=== PATIENT | male | born 2000 | race Two or more races ===

== ENCOUNTER 2025-02-02 23:58 | Inpatient (IN) | payer BC ==
[2025-02-03 03:39] LABS: Basophils # (A) 0.09 10*3/uL (0.00-0.10); Eosinophils # (A) 0.02 10*3/uL (0.04-0.35); Eosinophils % (A) 0.2 %; HCT 37.7 % (39.6-50.0); HGB 12.6 g/dL (13.0-17.0); Lymphocytes # (A) 1.68 10*3/uL (0.90-5.00); Lymphocytes % (A) 17.8 %; MCHC 33.4 g/dL (32.0-37.0); MCV 80.9 fL (80.0-97.0); Mean Platelet Volume 10.5 fL (9.5-12.2); Monocytes # (A) 1.94 10*3/uL (0.20-1.00); Monocytes % (A) 20.6 %; Neutrophils # (A) 5.68 10*3/uL (1.80-7.70); Neutrophils % (A) 60.1 %; Platelet Count 428 10*3/uL (140-440); RBC 4.66 10*6/uL (4.40-5.60); RDW 12.7 % (11.5-14.5); WBC 9.44 10*3/uL (4.50-10.00)
--- NOTE | 2025-02-03 03:45 | ED ---
General Adult HPI - General Chief complaint: GI Bleed Stated complaint: NVD,Fever Time Seen by Provider: 02/03/25 02:36 Source: patient Mode of arrival: ambulatory Limitations: no limitations - History of Present Illness Initial comments: Patient is a 24-year-old male presenting today for diarrhea. Patient states symptoms have been going on for "a few months". Initially started with loose stools and crampy lower abdominal pain. Initially they seem to come and go from week to week however have become more constant. Over the last few weeks symptoms have become more constant and he has developed grossly bloody stools as well. States he has been using "the max amount of Imodium" without improvement of symptoms. Has about 10 loose stools a day. Is gotten to the point where he will not be able to control his bowels and will have accidents while at work. Patient does work packaging meat. Last night he had a fever of 101 degrees at home so called his mother who brought him to the ER. Just prior to checking his temperature he did take 3 tablets of 200 mg ibuprofen. Patient does have a significant family history of an aunt with ulcerative colitis, multiple family members with IBS. Patient himself has no medical history. No prior surgeries on his abdomen. Denies testicular pain or swelling. Denies dysuria or hematuria. Denies vomiting or nausea. No chest pain or shortness of breath. States he was seen at another hospital on Saturday and was told to start a bland diet. Patient states he has been eating only toast for the last 3 days and symptoms have only gotten worse. Denies any exacerbating or alleviating factors. No recent travel. - Related Data Home Medications Medication Instructions Recorded Confirmed Loperamide [Imodium] 4 mg PO QID PRN 02/03/25 02/03/25 Allergies Allergy/AdvReac Type Severity Reaction Status Date / Time No Known Allergies Allergy Verified 02/03/25 09:07 Review of Systems ROS Statement: Those systems with pertinent positive or pertinent negative responses have been documented in the HPI. ROS Other: All systems not noted in ROS Statement are negative. Past Medical History Past Medical History: No Reported History History of Any Multi-Drug Resistant Organisms: None Reported Past Surgical History: No Surgical Hx Reported Past Psychological History: Anxiety, Bipolar, Depression Smoking Status: Never smoker Past Alcohol Use History: None Reported Past Drug Use History: None Reported General Exam - General Exam Comments Initial Comments: PE: CONSTITUTIONAL: No apparent distress, well appearing, nontoxic SKIN: Warm, dry, no jaundice, hives or petechiae, generalized pallor EYES: Pupils are equally round, extraocular movements intact without nystagmus, pale conjunctiva, non-icteric sclera HENT: Normocephalic, atraumatic, moist mucus membranes, oropharynx clear without exudates NECK: , Full range of motion, normal appearance PULMONARY: Clear to auscultation without wheezes, rhonchi, or rales, normal excursion, no accessory muscle use and no stridor CARDIOVASCULAR: Regular rate, rhythm, normal S1 and S2. No appreciated murmurs, rubs or gallops. Strong radial pulses with intact distal perfusion. No lower extremity edema GASTROINTESTINAL: Soft, active bowel sounds throughout, mild suprapubic tenderness to palpation, otherwise, non-distended, no palpable masses, no rebound or guarding. No hepatosplenomegaly GENITOURINARY: Rectal exam was performed with RNCelia at bedside, was limited by patient's body habitus though no visible hemorrhoids, on digital rectal exam patient did have significant pain, there was light red blood upon glove on exam. MUSCULOSKELETAL: Extremities have no gross deformity, no edema, redness, or swelling NEUROLOGIC:_a/o x 3, GCS 15, normal mentation and speech. Moves all extremities x 4 without motor or sensory deficit PSYCHIATRIC:_normal mood and affect, thought process is clear and linear Limitations: no limitations Course Vital Signs 02/03/25 02/03/25 02/03/25 00:05 05:01 06:04 Temperature 99.0 F 98.6 F Pulse Rate 126 H 91 Respiratory 18 17 Rate Blood Pressure 138/86 134/82 O2 Sat by Pulse 100 99 Oximetry 02/03/25 02/03/25 02/03/25 09:13 10:53 13:21 Temperature 98.4 F Pulse Rate 98 94 Respiratory 17 16 16 Rate Blood Pressure 114/60 121/69 O2 Sat by Pulse 95 99 Oximetry 02/03/25 20:00 Temperature 99.0 F Pulse Rate 100 Respiratory 16 Rate Blood Pressure 127/62 O2 Sat by Pulse 97 Oximetry Medical Decision Making - Medical Decision Making Was pt. sent in by a medical professional or institution (, PA, SALVAGER HELPER, urgent care, hospital, or group home...) When possible be specific @ -No Did you speak to anyone other than the patient for history (EMS, parent, family, police, friend...)? What history was obtained from this source @ -Spoke with patient's mother who states that her sister has a history of ulcerative colitis, she has a history of IBS, patient has an appoint with his PCP on February [address] Lopez in February 17 Did you review nursing and triage notes (agree or disagree)? Why? @ -I reviewed and agree with nursing and triage notes Were old charts reviewed (outside hosp., previous admission, EMS record, old EKG, old radiological studies, urgent care reports/EKG's, group home records)? Report findings @ -Medical records reviewed no prior medical records for review Differential Diagnosis (chest pain, altered mental status, abdominal pain women, abdominal pain men, vaginal bleeding, weakness, fever, dyspnea, syncope, headache, dizziness, GI bleed, back pain, seizure, CVA, palpatations, mental health, musculoskeletal)? @Differential GI Bleed: Esophageal varices, aortoenteric fistula, Cele-Levy, gastritis, peptic ulcer disease, diverticulosis, inflammatory bowel disease, hemorrhoids, fissure, colitis, malignancy, Meckel's diverticulum, this is not meant to be an all- inclusive list. EKG interpreted by me (3pts min.). @ -As above X-rays interpreted by me (1pt min.). @ -None done CT interpreted by me (1pt min.). @ -Personally reviewed CT scan, appears to show colonic wall thickening, I see no evidence of perforation or obstruction agree with radiologist interpretation U/S interpreted by me (1pt. min.). @ -None done What testing was considered but not performed or refused? (CT, X-rays, U/S, labs)? Why? @ -None What meds were considered but not given or refused? Why? @Morphine was considered for pain control per patient politely declined Did you discuss the management of the patient with other professionals (professionals i.e. , PA, SALVAGER HELPER, lab, RT, psych nurse, health social work professor, underwriting service representative, teacher, first officer and flight instructor, window caser)? Give summary @ -No Was smoking cessation discussed for >3mins.? @ -No Was critical care preformed (if so, how long)? @ -No Were there social determinants of health that impacted care today? How? (Homelessness, low income, unemployed, alcoholism, drug addiction, transportation, low edu. Level, literacy, decrease access to med. care, alf, rehab)? @ -No Was there de-escalation of care discussed even if they declined (Discuss DNR or withdrawal of care, Hospice)? @ -No What co-morbidities impacted this encounter? (DM, HTN, Smoking, COPD, CAD, Cancer, CVA, ARF, Chemo, Hep., AIDS, mental health diagnosis, sleep apnea, morbid obesity)? @ -None Was patient admitted / discharged? Hospital course, mention meds given and route, prescriptions, significant lab abnormalities, going to OR and other pertinent info. @ Admission- this is a pleasant 24 gentleman presenting today for bloody diarrhea and fever. Temp on arrival 99 degrees, of note patient did take Motrin prior to coming in. He was tachycardic with heart rate 126. Blood pressure 138/86. On assessment patient is somewhat pale appearing with pale conjunctiva. Abdomen shows mild tenderness to the suprapubic region. Rectal exam did not show any visible hemorrhoids though was limited by body habitus. Light pink blood was noted on FRANCISCO. Discussed with the patient obtaining labs, administe ring IV fluids, will obtain CT of the pelvis. Due to fever, chronicity of symptoms and bloody stools anticipate admission Labs show mild anemia for patient's age, hemoglobin of 12.6 no prior for com parison, no significant leukocytosis, electrolytes overall unremarkable CRP 15.6.. CT abdomen pelvis appeared to show findings "consistent with long segment diffuse colitis, differential includes infectious inflammatory and ischemic etiologies, in patients of this age for ulcerative colitis needs to be strongly considered advised GI follow-up. Given the extent of patient's symptoms, findings on CT, possibility of new onset ulcerative colitis plan to admit for observation and GI consult". Updated pt and mother to findings and plan, they are agreeable with POC. Case was discussed Dr. Simms who kindly excepted patient for admission. Undiagnosed new problem with uncertain prognosis? @ -No Drug Therapy requiring intensive monitoring for toxicity (Heparin, Nitro, Insulin, Cardizem)? @ -No Were any procedures done? @ -No Diagnosis/symptom? @Colitis Acute, or Chronic, or Acute on Chronic? @Acute Uncomplicated (without systemic symptoms) or Complicated (systemic symptoms)? @Complicated Side effects of treatment? @ -No Exacerbation, Progression, or Severe Exacerbation? @ -No Poses a threat to life or bodily function? How? (Chest pain, USA, SD, pneumonia, PE, COPD, DKA, ARF, appy, cholecystitis, CVA, Diverticulitis, Homicidal, Suicidal, threat to staff... and all critical care pts) @ Possibly if left untreated could progress to toxic megacolon - Lab Data Result diagrams: 02/03/25 03:27 02/03/25 03:27 Lab Results 02/03/25 02/03/25 02/03/25 Range/Units 03:22 03:27 03:27 WBC 9.44 (4.50-10.00) 10*3/uL RBC 4.66 (4.40-5.60) 10*6/uL Hgb 12.6 L (13.0-17.0) g/dL Hct 37.7 L (39.6-50.0) % MCV 80.9 (80.0-97.0) fL MCH 27.0 (27.0-32.0) pg MCHC 33.4 (32.0-37.0) g/dL Plt Count 428 (140-440) 10*3/uL MPV 10.5 (9.5-12.2) fL Immature Gran % (Auto) 0.3 % Neutrophils % 60.1 % Lymphocytes % 17.8 % Monocytes % 20.6 % Eosinophils % 0.2 % Basophils % 1.0 % Immature Gran # 0.03 (0.00-0.04) 10*3/uL Neutrophils # 5.68 (1.80-7.70) 10*3/uL Lymphocytes # 1.68 (0.90-5.00) 10*3/uL Monocytes # 1.94 H (0.20-1.00) 10*3/uL Eosinophils # 0.02 L (0.04-0.35) 10*3/uL Basophils # 0.09 (0.00-0.10) 10*3/uL ESR (0-15) mm/Hr PT (10.0-12.5) sec INR (<1.2) APTT 23.8 (22.0-30.0) sec Sodium (137-145) mmol/L Potassium (3.5-5.1) mmol/L Chloride (98-107) mmol/L Carbon Dioxide (22-30) mmol/L Anion Gap mmol/L BUN (9-20) mg/dL Creatinine (0.66-1.25) mg/dL Est GFR (CKD-EPI)AfAm (>60 ml/min/1.73 sqM) Est GFR (CKD-EPI)NonAf (>60 ml/min/1.73 sqM) Glucose (74-99) mg/dL Plasma Lactic Acid Dain (0.7-2.0) mmol/L Calcium (8.4-10.2) mg/dL Total Bilirubin (0.2-1.3) mg/dL AST (17-59) U/L ALT (4-49) U/L Alkaline Phosphatase (38-126) U/L C-Reactive Protein (<1.0) mg/dL Total Protein (6.3-8.2) g/dL Albumin (3.5-5.0) g/dL Blood Type A Positive Blood Type Confirm Blood Type Recheck No Previous Record Bld Type Recheck Status CABO Indicated Antibody Screen NEGATIVE Spec Expiration Date 02/06/2025 - 232102/03/25 02/03/25 02/03/25 Range/Units 03:27 03:27 03:27 WBC (4.50-10.00) 10*3/uL RBC (4.40-5.60) 10*6/uL Hgb (13.0-17.0) g/dL Hct (39.6-50.0) % MCV (80.0-97.0) fL MCH (27.0-32.0) pg MCHC (32.0-37.0) g/dL Plt Count (140-440) 10*3/uL MPV (9.5-12.2) fL Immature Gran % (Auto) % Neutrophils % % Lymphocytes % % Monocytes % % Eosinophils % % Basophils % % Immature Gran # (0.00-0.04) 10*3/uL Neutrophils # (1.80-7.70) 10*3/uL Lymphocytes # (0.90-5.00) 10*3/uL Monocytes # (0.20-1.00) 10*3/uL Eosinophils # (0.04-0.35) 10*3/uL Basophils # (0.00-0.10) 10*3/uL ESR (0-15) mm/Hr PT 12.6 H (10.0-12.5) sec INR 1.2 H (<1.2) APTT (22.0-30.0) sec Sodium 137 (137-145) mmol/L Potassium 3.8 (3.5-5.1) mmol/L Chloride 104 (98-107) mmol/L Carbon Dioxide 20 L (22-30) mmol/L Anion Gap 13 mmol/L BUN 11 (9-20) mg/dL Creatinine 1.01 (0.66-1.25) mg/dL Est GFR (CKD-EPI)AfAm >90 (>60 ml/min/1.73 sqM) Est GFR (CKD-EPI)NonAf >90 (>60 ml/min/1.73 sqM) Glucose 91 (74-99) mg/dL Plasma Lactic Acid Dain 0.8 (0.7-2.0) mmol/L Calcium 9.1 (8.4-10.2) mg/dL Total Bilirubin 0.8 (0.2-1.3) mg/dL AST 21 (17-59) U/L ALT 18 (4-49) U/L Alkaline Phosphatase 85 (38-126) U/L C-Reactive Protein (<1.0) mg/dL Total Protein 6.6 (6.3-8.2) g/dL Albumin 3.7 (3.5-5.0) g/dL Blood Type Blood Type Confirm Blood Type Recheck Bld Type Recheck Status Antibody Screen Spec Expiration Date 02/03/25 02/03/25 02/03/25 Range/Units 03:27 03:27 03:27 WBC (4.50-10.00) 10*3/uL RBC (4.40-5.60) 10*6/uL Hgb (13.0-17.0) g/dL Hct (39.6-50.0) % MCV (80.0-97.0) fL MCH (27.0-32.0) pg MCHC (32.0-37.0) g/dL Plt Count (140-440) 10*3/uL MPV (9.5-12.2) fL Immature Gran % (Auto) % Neutrophils % % Lymphocytes % % Monocytes % % Eosinophils % % Basophils % % Immature Gran # (0.00-0.04) 10*3/uL Neutrophils # (1.80-7.70) 10*3/uL Lymphocytes # (0.90-5.00) 10*3/uL Monocytes # (0.20-1.00) 10*3/uL Eosinophils # (0.04-0.35) 10*3/uL Basophils # (0.00-0.10) 10*3/uL ESR 66 H (0-15) mm/Hr PT (10.0-12.5) sec INR (<1.2) APTT (22.0-30.0) sec Sodium (137-145) mmol/L Potassium (3.5-5.1) mmol/L Chloride (98-107) mmol/L Carbon Dioxide (22-30) mmol/L Anion Gap mmol/L BUN (9-20) mg/dL Creatinine (0.66-1.25) mg/dL Est GFR (CKD-EPI)AfAm (>60 ml/min/1.73 sqM) Est GFR (CKD-EPI)NonAf (>60 ml/min/1.73 sqM) Glucose (74-99) mg/dL Plasma Lactic Acid Dain (0.7-2.0) mmol/L Calcium (8.4-10.2) mg/dL Total Bilirubin (0.2-1.3) mg/dL AST (17-59) U/L ALT (4-49) U/L Alkaline Phosphatase (38-126) U/L C-Reactive Protein 15.6 H (<1.0) mg/dL Total Protein (6.3-8.2) g/dL Albumin (3.5-5.0) g/dL Blood Type Blood Type Confirm A Positive Blood Type Recheck Bld Type Recheck Status Antibody Screen Spec Expiration Date Disposition Clinical Impression: Colitis Disposition: ADMITTED IP TO THIS [facility] Condition: Stable
[2025-02-03 03:57] LABS: ALT 18 U/L (4-49); AST 21 U/L (17-59); African American GFR (CKD) >90 (>60 ml/min/1.73 sqM); Albumin 3.7 g/dL (3.5-5.0); Alkaline Phosphatase 85 U/L (38-126); Anion Gap 13 mmol/L; Blood Urea Nitrogen 11 mg/dL (9-20); Calcium 9.1 mg/dL (8.4-10.2); Carbon Dioxide 20 mmol/L (22-30); Chloride 104 mmol/L (98-107); Glucose 91 mg/dL (74-99); Non-African American GFR(CKD) >90 (>60 ml/min/1.73 sqM); Potassium 3.8 mmol/L (3.5-5.1); Sodium 137 mmol/L (137-145); Total Bilirubin 0.8 mg/dL (0.2-1.3); Total Protein 6.6 g/dL (6.3-8.2)
[2025-02-03] MEDS: SODIUM CHLORIDE 0.9% 1,000 ML IV ONE (04:09)
[2025-02-03 04:37] LABS: INR 1.2 (<1.2); Prothrombin Time 12.6 sec (10.0-12.5)
--- NOTE | 2025-02-03 05:34 | CT ---
EXAMINATION TYPE: CT abdomen pelvis w con DATE OF EXAM: 02/03/2025 COMPARISON: NONE CLINICAL INDICATION: Male, 24 years old with history of 2 months bloody diarrhea, , TECHNIQUE: CT scan of the abdomen and pelvis is performed with IV Contrast, patient injected with 100 mL of Isov ue 300., (none if empty) Oral contrast used: (none if empty) CT DLP: mGycm, Automated exposure control for dose reduction was used. FINDINGS: LUNG BASES: No significant abnormality is appreciated. LIVER/GB: No significant abnormality is appreciated. PANCREAS: No significant abnormality is seen. SPLEEN: No significant abnormality is seen. ADRENALS: No significant abnormality is seen. KIDNEYS: No significant abnormality is seen. BOWEL: Slightly suboptimal evaluation without enteric contrast. There is fluid-filled: with loss of h austration and mild/moderate wall thickening in the transverse and left colon. Trauma ileum appears w ithin normal limits. No significant fat stranding is noted. PROSTATE/SEMINAL VESICLES: No gross abnormality seen. LYMPH NODES: No greater than 1cm abdominal or pelvic lymph nodes are appreciated. OSSEOUS STRUCTURES: No significant abnormality is seen. OTHER: No significant additional abnormality is seen. IMPRESSION: Findings are consistent with a long segment diffuse colitis. Differential includes infect ious, inflammatory, and ischemic etiologies. In patients of this age ulcerative colitis needs to be s trongly considered. Advise GI follow-up. [facility], , 02/03/2025 5:31 AM
[2025-02-03] MEDS ORDERED: MAG HYDROX/AL HYDROX/SIMETH 30 ML CUP PO PRN (07:33)
[2025-02-03] MEDS ORDERED: CALCIUM CARBONATE 500 MG CHEWABLE PO PRN (07:33)
[2025-02-03] MEDS ORDERED: HYDROmorphone 1 MG/ML 1 ML SYRINGE IVP PRN (07:33)
[2025-02-03] MEDS ORDERED: NALOXONE 0.4 MG/ML 1 ML VIAL IV PRN (07:33)
[2025-02-03] MEDS ORDERED: ONDANSETRON 4 MG/2 ML VIAL IVP PRN (07:33)
[2025-02-03] MEDS: SODIUM CHLORIDE 0.9% 1,000 ML IV SCH (09:07)
[2025-02-03] MEDS: PANTOPRAZOLE 40 MG/10 ML VIAL IV SCH (09:08)
--- NOTE | 2025-02-03 11:19 | P.CONS ---
History of Present Illness - Reason for Consult Consult date: 02/03/25 Possible UC Requesting physician: Meseret Wade - Chief Complaint Rectal bleeding, diarrhea - History of Present Illness This a pleasant 24-year-old male who presented to the emergency department with concerns of fever max temp of 101.1 at home with chills, and ongoing diarrhea with bloody bowel movements. Patient states for approximately 3 months he has been having loose stools which are now bloody. He states it started out as gas and bloating and then diarrhea and now mostly blood coming per rectum. States he has 10 bloody bowel movements daily usually has right lower quadrant abdominal cramping right before bowel movements. No nausea or vomiting. States he has had about a 10 pound weight loss over the last couple months and decreased appetite secondary to fullness. No previous history of inflammatory bowel disease. No previous colonoscopy. No new medications. He had a CT of the abdomen pelvis with IV contrast reporting long segment of diffuse colitis mild to moderate wall thickening in the transverse and left colon. Report states differential includes infectious, inflammatory and ischemic etiology. Consider ulcerative colitis secondary to patient's age. 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 Patient does have a maternal aunt with Crohn's colitis, maternal grandmother with colon cancer. Patient has been afebrile since admission. Today's labs WBC 9.4 hemoglobin 12.6 hematocrit 37 platelet count 428,000 INR 1.2 sodium 137 potassium 3.8 BUN 11 creatinine 1.0 total bilirubin 0.8 AST 21 ALT 18 alkaline phosphatase 85 C-reactive protein 15.6 Review of Systems REVIEW OF SYSTEMS: CARDIOPULMONARY: No chest pain or shortness of breath. Gastrointestinal: No abdominal pain. No nausea or vomiting. No hematemesis, coffee-ground emesis. Loose stool, bloody diarrhea up to 10 times a day for last 3 months duration. GENITOURINARY: No dysuria or hematuria. MUSCULOSKELETAL: Reports normal range of motion. SKIN: No rashes. No jaundice. ENDOCRINE: No chills, fevers. No excessive weight gain or loss. No polydipsia or polyuria. PSYCHIATRIC: Unremarkable. NEUROLOGY: No change in mental status. Denies dizziness, headache. ENT: Vision unremarkable. CONSTITUTIONAL: Reports about 10 pound weight loss over the last couple months. Fever and chills. Past Medical History Past Medical History: No Reported History History of Any Multi-Drug Resistant Organisms: None Reported Past Surgical History: No Surgical Hx Reported Past Psychological History: Anxiety, Bipolar, Depression Smoking Status: Never smoker Past Alcohol Use History: None Reported Past Drug Use History: None Reported Medications and Allergies Home Medications Medication Instructions Recorded Confirmed Type Loperamide [Imodium] 4 mg PO QID PRN 02/03/25 02/03/25 History Allergies Allergy/AdvReac Type Severity Reaction Status Date / Time No Known Allergies Allergy Verified 02/03/25 09:07 Physical Exam Vitals: Vital Signs Temp Pulse Resp BP Pulse Ox 02/03/25 06:04 91 17 134/82 99 02/03/25 05:01 98.6 F 02/03/25 00:05 99.0 F 126 H 18 138/86 100 Intake and Output 02/02/25 02/03/25 02/03/25 22:59 06:59 14:59 Other: Weight 153.314 kg General appearance: The patient is alert, oriented, appears in no acute distress. Obese. HET: Head is normocephalic and atraumatic. Conjunctiva pink. Sclera anicteric. Neck: Supple without lymphadenopathy. Trachea midline. Heart: Regular. Lungs: Equal expansion, normal respiratory effort. Abdomen: Soft, nontender, nondistended. Skin: No rashes. No jaundice. Extremities: Normal skin color and turgor. No pedal edema. Neurological: No focal deficits. Alert and oriented x3. Results CBC & Chem 7: 02/03/25 03:27 02/03/25 03:27 Labs: Abnormal Lab Results - Last 24 Hours (Table) 02/03/25 02/03/25 02/03/25 Range/Units 03:27 03:27 03:27 Hgb 12.6 L (13.0-17.0) g/dL Hct 37.7 L (39.6-50.0) % Monocytes # 1.94 H (0.20-1.00) 10*3/uL Eosinophils # 0.02 L (0.04-0.35) 10*3/uL PT 12.6 H (10.0-12.5) sec INR 1.2 H (<1.2) Carbon Dioxide 20 L (22-30) mmol/L C-Reactive Protein (<1.0) mg/dL 02/03/25 Range/Units 03:27 Hgb (13.0-17.0) g/dL Hct (39.6-50.0) % Monocytes # (0.20-1.00) 10*3/uL Eosinophils # (0.04-0.35) 10*3/uL PT (10.0-12.5) sec INR (<1.2) Carbon Dioxide (22-30) mmol/L C-Reactive Protein 15.6 H (<1.0) mg/dL Comments: CT abdomen pelvis with IV contrast reports findings are consistent with a long segment diffuse colitis. Differential includes infectious, inflammatory and ischemic etiology. In patients of this age ulcerative colitis needs to be strongly considered. Advise GI follow-up. Bowel reports slightly suboptimal valuation without enteral contrast. There is fluid-filled with loss of aspiration and mild/moderate wall thickening in the transverse and left colon. Terminal ileum appears within normal limits. No significant fat stranding is noted. Assessment and Plan (1) Colitis Narrative/Plan: 24-year-old male with 3-month history of loose bowel movements now consistently bloody up to [address] evidence with long segment of diffuse colitis. Reported fever at home however afebrile here with no leukocytosis. Elevated CRP and mild anemia. Need to consider possible infectious versus inflammatory colitis. 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 Stool studies ordered including stool culture and C. difficile. Sed rate ordered. Will plan for colonoscopy tomorrow. Current Visit: Yes Status: Acute Code(s): K52.9 - NONINFECTIVE GASTROENTERITIS AND COLITIS, UNSPECIFIED SNOMED Code(s): 15423116 (2) Diarrhea Current Visit: Yes Status: Acute Code(s): R19.7 - DIARRHEA, UNSPECIFIED SNOMED Code(s): 04724515 (3) Rectal bleeding Current Visit: Yes Status: Acute Code(s): K62.5 - HEMORRHAGE OF ANUS AND RECTUM SNOMED Code(s): 14017553 Plan: 1. Continue symptomatic and supportive care 2. Patient may have clear liquid diet, n.p.o. after midnight 3. Protonix 40 mg daily for GI prophylaxis 4. Daily CBC transfuse for hemoglobin less than 7 5. Sed rate ordered 6. Stool cultures and C. difficile ordered 7. Bowel prep starting tomorrow morning with plans for colonoscopy late tomorrow afternoon Thank you for this consultation, we will continue to follow. Dr. Samreen Antunez I agree with the dictator's note, documented as a scribe by Bhumi Mccracken.
--- NOTE | 2025-02-03 12:58 | P.HPIM ---
History of Present Illness H&P Date: 02/03/25 Chief Complaint: Bloody diarrhea Very pleasant 24-year-old patient, follows with Ana Paula Nam. Patient the ER is accompanied by his mother. Patient's symptoms started about 3 months ago. Initially was having more passing more gas and some loose stools. Symptoms have progressed. Denies having up to 10 bowel movements a day. Often times bloody. When he has a bowel movement it is actually a bit painful and discomfort. Patient has some fever and chills yesterday. A temperature recorded at home was 101. Decided to come in. Patient does work in the [employer] section at [employer]. Otherwise appetite is fair. Does feel a bit tired. Patient denies any eyes, joint symptoms. Review of systems: GEN.: Tired EYES: None HEENT: None NECK: None RESPIRATORY: None CARDIOVASCULAR: None GASTROINTESTINAL: As above GENITOURINARY: None MUSCULOSKELETAL: None LYMPHATICS: None HEMATOLOGICAL: None PSYCHIATRY: None NEUROLOGICAL: None Social history: Lives with his brother. Works in the [employer] at [employer]. Denies any smoking alcohol recreational drugs. Physical examination: VITAL SIGNS: Temperature reported at home was 101. 99, 126, 18, 1 3286, 100% room air upon presentation GENERAL: BMI 47.1, laying in bed awake not in distress. EYES: Pupils equal. Conjunctiva huber l. HEENT: External appearance of nose and ears normal, oral cavity grossly normal. NECK: JVD not raised; masses not palpable. HEART: First and second heart sounds are normal; no edema. LUNGS: Respiratory rate normal; clear to auscultation. ABDOMEN: Soft, nontender, liver spleen not palpable, no masses palpable. PSYCH: Alert and oriented x3; mood and affect hbuer l. MUSCULOSKELETAL:No Clubbing/cyanosis;muscles-grossly intact NEUROLOGICAL: Cranial nerves grossly intact; no facial asymmetry, power and sensation grossly intact. LYMPHATICS: No lymph nodes palpable in the axilla and neck INVESTIGATIONS, reviewed in the clinical context: February 03, 2025: White count 9.4 hemoglobin 12.6 platelets 428 sodium 137 potassium 3.8 creatinine 1.[address] abdomen pelvis with contrast: Fluid-filled with loss of aspiration and mild to moderate wall thickening of the transverse and left colon. Assessment plan: - Patient present with 3 months of progressive GI symptoms. Initially started off with Some loose stools. Last progressed to up to 10 bowel movements a day. Had fever and chills yesterday with a temperature recorded at home of 101. Bloody stool. Patient does have a normal white count with some increased monocytes. Patient's clinical picture is probably more related to inflammatory bowel disease. Will need to rule out parasites in the stool. GI service is consulted. Clear liquid diet. - Morbid obesity BMI 47.1 Weight loss measures - Mild normocytic anemia from blood loss anemia from GI bleed Care was discussed with patient by the bedside. Await input from Dr. Samreen Antunez will see the patient this afternoon. Past Medical History Past Medical History: No Reported History History of Any Multi-Drug Resistant Organisms: None Reported Past Surgical History: No Surgical Hx Reported Past Psychological History: Anxiety, Bipolar, Depression Smoking Status: Never smoker Past Alcohol Use History: None Reported Past Drug Use History: None Reported Medications and Allergies Home Medications Medication Instructions Recorded Confirmed Type Loperamide [Imodium] 4 mg PO QID PRN 02/03/25 02/03/25 History Allergies Allergy/AdvReac Type Severity Reaction Status Date / Time No Known Allergies Allergy Verified 02/03/25 09:07 Physical Exam Vitals: Vital Signs Temp Pulse Resp BP Pulse Ox 02/03/25 09:13 98.4 F 98 17 114/60 95 02/03/25 06:04 91 17 134/82 99 02/03/25 05:01 98.6 F 02/03/25 00:05 99.0 F 126 H 18 138/86 100 Intake and Output 02/02/25 02/03/25 02/03/25 22:59 06:59 14:59 Other: Weight 153.314 kg Results CBC & Chem 7: 02/03/25 03:27 02/03/25 03:27 Labs: Abnormal Lab Results - Last 24 Hours (Table) 02/03/25 02/03/25 02/03/25 Range/Units 03:27 03:27 03:27 Hgb 12.6 L (13.0-17.0) g/dL Hct 37.7 L (39.6-50.0) % Monocytes # 1.94 H (0.20-1.00) 10*3/uL Eosinophils # 0.02 L (0.04-0.35) 10*3/uL PT 12.6 H (10.0-12.5) sec INR 1.2 H (<1.2) Carbon Dioxide 20 L (22-30) mmol/L C-Reactive Protein (<1.0) mg/dL 02/03/25 Range/Units 03:27 Hgb (13.0-17.0) g/dL Hct (39.6-50.0) % Monocytes # (0.20-1.00) 10*3/uL Eosinophils # (0.04-0.35) 10*3/uL PT (10.0-12.5) sec INR (<1.2) Carbon Dioxide (22-30) mmol/L C-Reactive Protein 15.6 H (<1.0) mg/dL
[2025-02-03 14:39] LABS: Appearance,Urine Clear (Clear); Bilirubin,Urine Negative (Negative); Blood,Urine Small (Negative); Color,Urine Yellow; Glucose,Urine (UA) Negative (Negative); Ketones,Urine 4+ (Negative); Leukocyte Esterase,Urine Negative (Negative); Mucus,Urine Moderate /hpf; Nitrite,Urine Negative (Negative); PH, Urine 5.5 (5.0-8.0); Protein,Urine Trace (Negative); RBC,Urine 5 /hpf (0-5); Specific Gravity,Urine 1.038 (1.001-1.035); Squamous Epithelial Cell,Urine 1 /hpf (0-4); Urobilinogen,Urine <2.0 mg/dL (<2.0); WBC,Urine 6 /hpf (0-5)
[2025-02-03] MEDS: HYDROmorphone 0.5 MG/0.5 ML SYRINGE IVP PRN (16:55)
[2025-02-03] MEDS: ACETAMINOPHEN TAB 325 MG TAB PO PRN (23:48)
[2025-02-03] MEDS: LACTATED RINGERS 1,000 ML IV SCH (23:49)
[2025-02-04] MEDS: PEG 3350 (236 GM/BTL) + LYTES 4,000 ML BOTTLE PO ONE (06:44)
[2025-02-04] MEDS: PANTOPRAZOLE 40 MG/10 ML VIAL IVP SCH (08:04)
[2025-02-04 13:31] VITALS: BMI 46.1
[2025-02-04] MEDS: NA PHOS,M-B/NA PHOS,DI-BA 133 ML ENEMA RECTAL STA (15:06)
--- NOTE | 2025-02-04 17:09 | P.PN ---
Progress Note - Text Progress Note Date: 02/04/25 Chief Complaint: Bloody diarrhea Very pleasant 24-year-old patient, follows with Ana Paula Nam. Patient the ER is accompanied by his mother. Patient's symptoms started about 3 months ago. Initially was having more passing more gas and some loose stools. Symptoms have progressed. Denies having up to 10 bowel movements a day. Often times bloody. When he has a bowel movement it is actually a bit painful and discomfort. Patient has some fever and chills yesterday. A temperature recorded at home was 101. Decided to come in. Patient does work in the [employer] section at [employer]. Otherwise appetite is fair. Does feel a bit tired. Patient denies any eyes, joint symptoms. February 04: Patient was seen this morning. Drinking TriggerMailly bowel prep for his colonoscopy. Has been NPO. Had bloody bowel movements yesterday. Active Medications Acetaminophen (Acetaminophen Tab 325 Mg Tab) 650 mg PO Q6HR PRN PRN Reason: Mild Pain or Fever > 100.5 Last Admin: 02/03/25 23:48 Dose: 650 mg Al Hydroxide/Mg Hydroxide (Mag Hydrox/Al Hydrox/Simeth 30 Ml Cup) 15 ml PO Q6HR PRN PRN Reason: Indigestion Calcium Carbonate/Glycine (Calcium Carbonate 500 Mg Chewable) 1,000 mg PO Q4HR PRN PRN Reason: Dyspepsia Hydromorphone HCl (Hydromorphone 0.5 Mg/0.5 Ml Syringe) 0.5 mg IVP Q3HR PRN PRN Reason: Moderate Pain (Scale 4 to 6) Last Admin: 02/03/25 16:55 Dose: 0.5 mg Hydromorphone HCl (Hydromorphone 1 Mg/Ml 1 Ml Syringe) 1 mg IVP Q3HR PRN PRN Reason: Severe Pain (Scale 7 to 10) Sodium Chloride (Saline 0.9%) 1,000 mls @ 75 mls/hr IV [id number] Last Admin: 02/04/25 11:26 Dose: Not Given Lactated Ringer's (Lactated Ringers) 1,000 mls @ 20 mls/hr IV .Q24H [facility] Last Admin: 02/03/25 23:49 Dose: Not Given Naloxone HCl (Naloxone 0.4 Mg/Ml 1 Ml Vial) 0.2 mg IV Q2M PRN PRN Reason: Opioid Reversal Ondansetron HCl (Ondansetron 4 Mg/2 Ml Vial) 4 mg IVP Q8HR PRN PRN Reason: Nausea And Vomiting Pantoprazole Sodium (Pantoprazole 40 Mg/10 Ml Vial) 40 mg IVP DAILY [facility] Last Admin: 02/04/25 08:04 Dose: 40 mg Social history: Lives with his brother. Works in the [employer] at [employer]. Denies any smoking alcohol recreational drugs. Physical examination: VITAL SIGNS: 97.6, 86, 16, 133/75, 99% room air GENERAL: BMI 47.1, sitting on bed, drinking [employer]Lytely EYES: Pupils equal. Conjunctiva huber l. HEENT: External appearance of nose and ears normal, oral cavity grossly normal. NECK: JVD not raised; masses not palpable. HEART: First and second heart sounds are normal; no edema. LUNGS: Respiratory rate normal; clear to auscultation. ABDOMEN: Soft, nontender, liver spleen not palpable, no masses palpable. PSYCH: Alert and oriented x3; mood and affect huber l. INVESTIGATIONS, reviewed in the clinical context: February 03, 2025: White count 9.4 hemoglobin 12.6 platelets 428 sodium 137 potassium 3.8 creatinine 1.[address] abdomen pelvis with contrast: Fluid-filled with loss of aspiration and mild to moderate wall thickening of the transverse and left colon. Assessment plan: - Patient present with 3 months of progressive GI symptoms. Initially started off with Some loose stools. Last progressed to up to 10 bowel movements a day. Had fever and chills yesterday with a temperature recorded at home of 101. Bloody stool. Patient does have a normal white count with some increased monocytes. Patient's clinical picture is probably more related to inflammatory bowel disease. Will need to rule out parasites in the stool. GI service is consulted. Clear liquid diet. - Morbid obesity BMI 47.1 Weight loss measures - Mild normocytic anemia from blood loss anemia from GI bleed NPO. Pending colonoscopy Past Medical History Past Medical History: No Reported History History of Any Multi-Drug Resistant Organisms: None Reported Past Surgical History: No Surgical Hx Reported Past Psychological History: Anxiety, Bipolar, Depression Smoking Status: Never smoker Past Alcohol Use History: None Reported Past Drug Use History: None Reported
[2025-02-04] MEDS ORDERED: PROPOFOL 10 MG/ML 20 ML VIAL IV ONE (17:29)
[2025-02-04] MEDS: IV FLUID CONTINUATION 1,000 ML IV ONE (17:29)
--- NOTE | 2025-02-04 17:44 | P.PCN ---
Date of Procedure: 02/04/25 Procedure(s) Performed: BRIEF HISTORY: Patient is a 24-year-old pleasant white male admitted to hospital with chronic diarrhea of 6 months duration but with blood and mucus in the stool for the last 1 month. Has been having pharmacy referral 5-7 in terms of altering consistency and blood in the stool. He is not scheduled for colonoscopy to evaluate further. PROCEDURE PERFORMED: Colonoscopy with biopsy. PREOPERATIVE DIAGNOSIS: Chronic diarrhea with blood and mucus in the stool of 1 month duration. IV sedation per Anesthesia. PROCEDURE: After informed consent was obtained, the patient, was brought into the endoscopy unit. IV sedation was administered by Anesthesia under continuous monitoring. Digital rectal examination was normal. Initially the Olympus CF-160 flexible video colonoscope was then inserted in the rectum, gradually advanced into the cecum without any difficulty. Careful examination was performed as the scope was gradually being withdrawn. Ileocecal valve and the appendiceal orifice were visualized and appeared normal. Prep was excellent. Terminal ileum was intubated that appeared normal. Mucosa of the cecum, ascending colon, transverse colon, descending colon, sigmoid colon, and rectum a had diffuse pancolitis with mucosal erythema, friability, granularity with spontaneous bleeding and exudates more severe in the rectum and sigmoid colon status post multiple biopsies to evaluate for ulcerative colitis. Retroflexion was performed in the rectum and no lesions were seen. The patient tolerated the procedure well. IMPRESSION: Pancolitis with mucosal erythema, friability and granularity with exudates and spontaneous bleeding noted throughout the entire colon consistent with ulcerative colitis status post multiple biopsies Normal-appearing terminal ileum. RECOMMENDATIONS: Findings of this examination were discussed with the patient as well as his family. He was advised to follow-up with the biopsy results.. He will be started on IV Solu-Medrol 40 mg every 8 hours. Advance to full liquid diet.
[2025-02-04] MEDS: methylPREDNISolone SOD SUCCI 40 MG/ML 1 ML VIAL IV SCH (18:10)
[2025-02-05 03:28] LABS: Glucose,Whole Blood 119 mg/dL (70-110)
[2025-02-05 03:57] LABS: Basophils # (A) 0.02 10*3/uL (0.00-0.10); Basophils % (A) 0.3 %; HCT 35.4 % (39.6-50.0); HGB 11.5 g/dL (13.0-17.0); Lymphocytes # (A) 0.66 10*3/uL (0.90-5.00); Lymphocytes % (A) 11.2 %; MCH 26.6 pg (27.0-32.0); MCHC 32.5 g/dL (32.0-37.0); MCV 81.8 fL (80.0-97.0); Mean Platelet Volume 10.8 fL (9.5-12.2); Monocytes # (A) 0.21 10*3/uL (0.20-1.00); Monocytes % (A) 3.6 %; Neutrophils # (A) 4.96 10*3/uL (1.80-7.70); Neutrophils % (A) 84.4 %; Platelet Count 382 10*3/uL (140-440); RBC 4.33 10*6/uL (4.40-5.60); RDW 12.5 % (11.5-14.5); WBC 5.88 10*3/uL (4.50-10.00)
--- NOTE | 2025-02-05 10:37 | P.CRDCN ---
History of Present Illness History of present illness: HISTORY OF PRESENT ILLNESS: This is a 24-year-old male with a past medical history significant for anxiety, bipolar disorder, depression, and morbid obesity. Patient does not follow with a house calls nurse. We have been asked to see the patient in consultation for bradycardia. Patient examined at the bedside. Patient presented to the hospital with a chief complaint of ongoing diarrhea. He underwent colonoscopy yesterday revealing ulcerative colitis. Patient states yesterday evening around 10:00 he was watching TV when he began to feel sweaty. He states about an hour later he got up to use the bathroom. He reports feeling very chilled and pale. He denied having any pain at that time. The patient was noted to be bradycardic with a heart rate in the 40-50s at that time. No syncope. Patients HR this am is in the 90s DIAGNOSTICS: - EKG not available at time of this dictation - Laboratory data: WBC 5.88. Hemoglobin 11.5. Platelet count 382. Sodium 137. Potassium 3.8. BUN 11. Creatinine 1.01. - Current home cardiac medications include none. - No previous echocardiogram, stress test, or cardiac catheterization available in EMR for review REVIEW OF SYSTEMS: At the time of my exam: CONSTITUTIONAL: Denies fever or chills. HEENT: Denies blurred vision, vision changes, or eye pain. Denies hemoptysis CARDIOVASCULAR: Denies chest pain. Denies orthopnea. Denies PND. Denies palpitations RESPIRATORY: Denies shortness of breath. GASTROINTESTINAL: Denies abdominal pain. Denies nausea or vomiting. HEMATOLOGIC: Denies bleeding disorders. GENITOURINARY: Denies any blood in urine. SKIN: Denies pruitis. Denies rash. PHYSICAL EXAM: VITAL SIGNS: Reviewed. GENERAL: Well-developed in no acute distress. HEENT: Head is normocephalic. Pupils are equal, round. Sclerae anicteric. Mucous membranes of the mouth are moist. Neck supple. No JVD or thyromegaly LUNGS: Respirations even and unlabored. Lungs essentially clear to auscultation bilaterally. HEART: Regular rate and rhythm. S1 and S2 heard. ABDOMEN: Soft. Nondistended. Nontender. EXTREMITIES: Normal range of motion. No clubbing or cyanosis. Peripheral pulses intact. No lower extremity edema NEUROLOGIC: Awake and alert. Oriented x 3. ASSESSMENT: Ulcerative colitis Bradycardia, likely vasovagal Anxiety Bipolar disorder Depression Morbid obesity: BMI 46.1 PLAN: No indication for echo at this time Patient encouraged to increase oral intake and increase salt intake when he is having flare ups of his ulcerative colitis in the future No further inpatient recommendations from a cardiac standpoint Patient to follow-up postdischarge in the office with Dr. Shen in 3 weeks Will sign off. Please reconsult if needed. Nurse practitioner note has been reviewed by physician. Signing provider agrees with the documented findings, assessment, and plan of care documented by VERIFYING SPECIALIST as a scribe. Past Medical History Past Medical History: No Reported History History of Any Multi-Drug Resistant Organisms: None Reported Past Surgical History: No Surgical Hx Reported Past Psychological History: Anxiety, Bipolar, Depression Smoking Status: Never smoker Past Alcohol Use History: None Reported Past Drug Use History: None Reported Medications and Allergies Home Medications Medication Instructions Recorded Confirmed Type Loperamide [Imodium] 4 mg PO QID PRN 02/03/25 02/03/25 History Allergies Allergy/AdvReac Type Severity Reaction Status Date / Time No Known Allergies Allergy Verified 02/03/25 09:07 Physical Exam Vitals: Vital Signs Temp Pulse Resp BP Pulse Ox 02/05/25 03:20 97.6 F 67 16 97/65 97 02/04/25 23:00 98.4 F 92 15 105/70 96 02/04/25 19:30 98.8 F 98 17 113/55 98 02/04/25 18:21 89 16 115/71 98 02/04/25 12:04 97.6 F 86 16 133/75 99 02/04/25 08:01 97.8 F 84 16 94/61 97 Intake and Output 02/04/25 02/05/25 02/05/25 22:59 06:59 14:59 Intake Total 1125 10 Balance 1125 10 Intake: IV 885 10 Invasive Line 2 10 10 Sodium Chloride 0.9% 1, 675 000 ml @ 75 mls/hr IV . [id number] [facility] Rx#:[id number] Oral 240 Other: Voiding Method Toilet Toilet # Voids 3 Weight 149.8 kg Results 02/05/25 03:36 02/03/25 03:27 CBC 02/05/25 Range/Units 03:36 WBC 5.88 (4.50-10.00) 10*3/uL RBC 4.33 L (4.40-5.60) 10*6/uL Hgb 11.5 L (13.0-17.0) g/dL Hct 35.4 L (39.6-50.0) % Plt Count 382 (140-440) 10*3/uL Current Medications Generic Name Dose Route Start Last Admin Trade Name Freq PRN Reason Stop Dose Admin Acetaminophen 650 mg 02/03/25 07:33 02/03/25 23:48 Acetaminophen Tab 325 Mg Tab PO 650 mg Q6HR PRN Administration Mild Pain or Fever > 100.5 Al Hydroxide/Mg Hydroxide 15 ml 02/03/25 07:33 Mag Hydrox/Al Hydrox/Simeth 30 Ml Cup PO Q6HR PRN Indigestion Calcium Carbonate/Glycine 1,000 mg 02/03/25 07:33 Calcium Carbonate 500 Mg Chewable PO Q4HR PRN Dyspepsia Hydromorphone HCl 0.5 mg 02/03/25 07:33 02/03/25 16:55 Hydromorphone 0.5 Mg/0.5 Ml Syringe IVP 0.5 mg Q3HR PRN Administration Moderate Pain (Scale 4 to 6) Hydromorphone HCl 1 mg 02/03/25 07:33 Hydromorphone 1 Mg/Ml 1 Ml Syringe IVP Q3HR PRN Severe Pain (Scale 7 to 10) Sodium Chloride 1,000 mls @ 75 mls/hr 02/03/25 07:45 02/04/25 18:11 Saline 0.9% IV 75 mls/hr .[id number] [facility] Administration Lactated Ringer's 1,000 mls @ 20 mls/hr 02/03/25 17:45 02/04/25 18:06 Lactated Ringers IV Not Given .Q24H [facility] Methylprednisolone Sodium Succinate 20 mg 02/04/25 17:45 02/04/25 23:00 Methylprednisolone Sod Succi 40 Mg/Ml 1 Ml Vial IV 20 mg Q8HR [facility] Administration Naloxone HCl 0.2 mg 02/03/25 07:33 Naloxone 0.4 Mg/Ml 1 Ml Vial IV Q2M PRN Opioid Reversal Ondansetron HCl 4 mg 02/03/25 07:33 Ondansetron 4 Mg/2 Ml Vial IVP Q8HR PRN Nausea And Vomiting Pantoprazole Sodium 40 mg 02/04/25 09:00 02/04/25 08:04 Pantoprazole 40 Mg/10 Ml Vial IVP 40 mg DAILY [facility] Administration Intake and Output 02/04/25 02/05/25 02/05/25 22:59 06:59 14:59 Intake Total 1125 10 Balance 1125 10 Intake: IV 885 10 Invasive Line 2 10 10 Sodium Chloride 0.9% 1, 675 000 ml @ 75 mls/hr IV . [id number] [facility] Rx#:[id number] Oral 240 Other: Voiding Method Toilet Toilet # Voids 3 Weight 149.8 kg 02/05/25 03:36 02/03/25 03:27
--- NOTE | 2025-02-05 10:38 | P.PN ---
Progress Note - Text Patient interviewed and examinedEpisode of sweatiness cold clamminess nausea while sitting Known ulcerative colitis with symptoms at this time Likely vasovagal episode with sinus bradycardia plan continue current medications and treatment for ulcerative colitis symptoms Follow-up with me in about 3 weeks once his acute flareup of ulcerative colitis resolves
--- NOTE | 2025-02-05 10:58 | P.PN ---
Subjective Progress Note Date: 02/05/25 Principal diagnosis: Diarrhea, colitis This a pleasant 24-year-old male who presented to the emergency department with concerns of fever max temp of 101.1 at home with chills, and ongoing diarrhea with bloody bowel movements. Patient states for approximately 3 months he has been having loose stools which are now bloody. He states it started out as gas and bloating and then diarrhea and now mostly blood coming per rectum. States he has 10 bloody bowel movements daily usually has right lower quadrant abdominal cramping right before bowel movements. No nausea or vomiting. States he has had about a 10 pound weight loss over the last couple months and decreased appetite secondary to fullness. No previous history of inflammatory bowel disease. No previous colonoscopy. No new medications. He had a CT of the abdomen pelvis with IV contrast reporting long segment of diffuse colitis mild to moderate wall thickening in the transverse and left colon. Report states differential includes infectious, inflammatory and ischemic etiology. Consider ulcerative colitis secondary to patient's age. 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 Patient does have a maternal aunt with Crohn's colitis, maternal grandmother with colon cancer. Patient has been afebrile since admission. Today's labs WBC 9.4 hemoglobin 12.6 hematocrit 37 platelet count 428,000 INR 1.2 sodium 137 potassium 3.8 BUN 11 creatinine 1.0 total bilirubin 0.8 AST 21 ALT 18 alkaline phosphatase 85 C-reactive protein 15.6 02/05/2025 Patient seen and examined today as a follow-up. Diarrhea improved. No abdominal pain. No nausea or vomiting. He underwent colonoscopy yesterday with findings of pancolitis with mucosal erythema, friability and granularity with e xudate and spontaneous bleeding noted throughout the entire colon consistent with ulcerative colitis status post multiple biopsies. Normal-appearing terminal ileum. Patient was started on IV Solu-Medrol 40 mg every 8 hours. Patient states that he is hungry and would like to advance his diet. He has been afebrile. And denies any body aches or chills. Objective - Vital Signs Vital signs: Vital Signs Temp 97.6 F 02/05/25 03:20 Pulse 67 02/05/25 03:20 Resp 16 02/05/25 03:20 BP 97/65 02/05/25 03:20 Pulse Ox 97 02/05/25 03:20 FiO2 Intake & Output 02/04/25 02/05/25 02/05/25 18:59 06:59 18:59 Intake Total 875 260 Balance 875 260 Weight 150.1 kg 149.8 kg Intake: IV 875 20 Invasive Line 2 20 Sodium Chloride 0.9% 1, 675 000 ml @ 75 mls/hr IV . [id number] [facility] Rx#:[id number] Oral 240 Other: Voiding Method Toilet # Voids 3 # Bowel Movements 2 - Exam General appearance: The patient is alert, oriented, appears in no acute distress. Obese. HET: Head is normocephalic and atraumatic. Conjunctiva pink. Sclera anicteric. Neck: Supple without lymphadenopathy. Abdomen: Soft, nontender, nondistended. Extremities: Normal skin color and turgor. No pedal edema Skin: No rashes, no jaundice Neurological: No focal deficits. Alert and oriented. - Labs CBC & Chem 7: 02/05/25 03:36 02/03/25 03:27 Labs: Abnormal Lab Results - Last 24 Hours (Table) 02/05/25 02/05/25 Range/Units 03:26 03:36 RBC 4.33 L (4.40-5.60) 10*6/uL Hgb 11.5 L (13.0-17.0) g/dL Hct 35.4 L (39.6-50.0) % MCH 26.6 L (27.0-32.0) pg Lymphocytes # 0.66 L (0.90-5.00) 10*3/uL Eosinophils # 0.00 L (0.04-0.35) 10*3/uL POC Glucose (mg/dL) 119 H (70-110) mg/dL Microbiology - Last 24 Hours (Table) 02/03/25 10:59 Stool Culture - Preliminary Stool Assessment and Plan (1) Colitis Narrative/Plan: 24-year-old male with 3-month history of loose bowel movements now consistently bloody up to [address] evidence with long segment of diffuse colitis. Reported fever at home however afebrile here with no leukocytosis. Elevated CRP and mild anemia. Need to consider possible infectious versus inflammatory co litis. 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 Patient is post colonoscopy with findings consistent for ulcerative colitis. IV Solu-Medrol 20 mg every 8 hours and transition to oral prednisone 40 mg daily with taper by 5 mg weekly on discharge Current Visit: Yes Status: Acute Code(s): K52.9 - NONINFECTIVE GASTROENTERITIS AND COLITIS, UNSPECIFIED SNOMED Code(s): 32348359 (2) Diarrhea Current Visit: Yes Status: Acute Code(s): R19.7 - DIARRHEA, UNSPECIFIED SNOMED Code(s): 55861095 (3) Rectal bleeding Current Visit: Yes Status: Acute Code(s): K62.5 - HEMORRHAGE OF ANUS AND RECTUM SNOMED Code(s): 34553928 (4) Morbid obesity with BMI of 45.0-49.9, adult Current Visit: Yes Status: Acute Code(s): E66.01 - MORBID (SEVERE) OBESITY DUE TO EXCESS CALORIES; Z68.42 - BODY MASS INDEX [BMI] 45.0-49.9, ADULT SNOMED Code(s): 418054043 Plan: 1. Continue symptomatic and supportive care 2. Advance to regular diet 3. Protonix 40 mg daily for GI prophylaxis 4. Continue Solu-Medrol 20 mg every 8 hours, transition to oral prednisone 40 mg taper by 5 mg weekly on discharge. Prescription sent 5. Stool culture negative 6. Patient is status post colonoscopy with high suspicion for ulcerative colitis 7. Recommend 24-48 more hours of IV steroids and then can discharge on oral prednisone Thank you for allowing us to participate in the care of the patient, GI service will sign off, gastroenterology will not be available at the hospital this weekend and through next week. If further evaluation by gastroenterology is required the patient will need transfer as per the primary team's discretion. Dr. Samreen Antunez I agree with the dictator's note, documented as a scribe by Bhumi Mccracken.
--- NOTE | 2025-02-05 19:33 | P.PN ---
Progress Note - Text Progress Note Date: 02/05/25 Chief Complaint: Bloody diarrhea Very pleasant 24-year-old patient, follows with Ana Paula Nam. Patient the ER is accompanied by his mother. Patient's symptoms started about 3 months ago. Initially was having more passing more gas and some loose stools. Symptoms have progressed. Denies having up to 10 bowel movements a day. Often times bloody. When he has a bowel movement it is actually a bit painful and discomfort. Patient has some fever and chills yesterday. A temperature recorded at home was 101. Decided to come in. Patient does work in the [employer] section at [employer]. Otherwise appetite is fair. Does feel a bit tired. Patient denies any eyes, joint symptoms. February 04: Patient was seen this morning. Drinking [employer] bowel prep for his colonoscopy. Has been NPO. Had bloody bowel movements yesterday. February 05: Colonoscopy yesterday showed evidence of ulcerative colitis. Started on IV Solu-Medrol 20 mg every 8. Patient feels much better today tolerating a soft diet. No bloody bowel movements today. Abdominal pain has resolved. Increase activity. Patient seen by Chano Shen from cardiology. Bradycardia felt to be possibly vasovagal Active Medications Acetaminophen (Acetaminophen Tab 325 Mg Tab) 650 mg PO Q6HR PRN PRN Reason: Mild Pain or Fever > 100.5 Last Admin: 02/03/25 23:48 Dose: 650 mg Al Hydroxide/Mg Hydroxide (Mag Hydrox/Al Hydrox/Simeth 30 Ml Cup) 15 ml PO Q6HR PRN PRN Reason: Indigestion Calcium Carbonate/Glycine (Calcium Carbonate 500 Mg Chewable) 1,000 mg PO Q4HR PRN PRN Reason: Dyspepsia Lactated Ringer's (Lactated Ringers) 1,000 mls @ 20 mls/hr IV .Q24H [facility] Last Admin: 02/05/25 13:36 Dose: Not Given Methylprednisolone Sodium Succinate (Methylprednisolone Sod Succi 40 Mg/Ml 1 Ml Vial) 20 mg IV Q8HR [facility] Last Admin: 02/05/25 15:36 Dose: 20 mg Naloxone HCl (Naloxone 0.4 Mg/Ml 1 Ml Vial) 0.2 mg IV Q2M PRN PRN Reason: Opioid Reversal Ondansetron HCl (Ondansetron 4 Mg/2 Ml Vial) 4 mg IVP Q8HR PRN PRN Reason: Nausea And Vomiting Social history: Lives with his brother. Works in the [employer] section at [employer]. Denies any smoking alcohol recreational drugs. Physical examination: VITAL SIGNS: 98.2, 85, 16, 94 x 62, 99% room air GENERAL: BMI 47.1, sitting on bed, drinking [employer] EYES: Pupils equal. Conjunctiva huber l. HEENT: External appearance of nose and ears normal, oral cavity grossly normal. NECK: JVD not raised; masses not palpable. HEART: First and second heart sounds are normal; no edema. LUNGS: Respiratory rate normal; clear to auscultation. ABDOMEN: Soft, nontender, liver spleen not palpable, no masses palpable. PSYCH: Alert and oriented x3; mood and affect huber l. INVESTIGATIONS, reviewed in the clinical context: February 05: White count 5.8 hemoglobin 11.5 platelets 382 February 03, 2025: White count 9.4 hemoglobin 12.6 platelets 428 sodium 137 potassium 3.8 creatinine 1.[address] abdomen pelvis with contrast: Fluid-filled with loss of aspiration and mild to moderate wall thickening of the transverse and left colon. Assessment plan: - Patient present with 3 months of progressive GI symptoms. Initially started off with Some loose stools. Last progressed to up to 10 bowel movements a day. Had fever and chills yesterday with a temperature recorded at home of 101. Bloody stool. Patient does have a normal white count with some increased monocytes. Likely ulcerative colitis as per colonoscopy Dr. Samreen Antunez following IV Solu-Medrol 20 mg Q8. - Morbid obesity BMI 47.1 Weight loss measures - Bradycardia likely vasovagal - Mild normocytic anemia from blood loss anemia from GI bleed Past Medical History Past Medical History: No Reported History History of Any Multi-Drug Resistant Organisms: None Reported Past Surgical History: No Surgical Hx Reported Past Psychological History: Anxiety, Bipolar, Depression Smoking Status: Never smoker Past Alcohol Use History: None Reported Past Drug Use History: None Reported
[2025-02-06 11:20] VITALS: TEMP 97.8
[2025-02-06 12:18] VITALS: BP 91/60; PULSE 71; RESP 16
--- NOTE | 2025-02-06 18:10 | P.DS ---
Providers Date of admission: 02/03/25 07:34 Expected date of discharge: 02/06/25 Attending physician: Sunny Simms Consults: 02/03/25 06:34 Consult Physician Urgent Consulting Provider: Eve Antunez Consult Reason/Comments: possible UC Do you want consulting provider notified?: Yes, Notify in am Primary care physician: [employer] Hospital Course: Chief Complaint: Bloody diarrhea Very pleasant 24-year-old patient, follows with Ana Paula Nam. Patient the ER is accompanied by his mother. Patient's symptoms started about 3 months ago. Initially was having more passing more gas and some loose stools. Symptoms have progressed. Denies having up to 10 bowel movements a day. Often times bloody. When he has a bowel movement it is actually a bit painful and discomfort. Patient has some fever and chills yesterday. A temperature recorded at home was 101. Decided to come in. Patient does work in the [employer] at [employer]. Otherwise appetite is fair. Does feel a bit tired. Patient denies any eyes, joint symptoms. February 04: Patient was seen this morning. Drinking [employer] bowel prep for his colonoscopy. Has been NPO. Had bloody bowel movements yesterday. February 05: Colonoscopy yesterday showed evidence of ulcerative colitis. Started on IV Solu-Medrol 20 mg every 8. Patient feels much better today tolerating a soft diet. No bloody bowel movements today. Abdominal pain has resolved. Increase activity. Patient seen by Chano Shen from cardiology. Bradycardia felt to be possibly vasovagal February 06: Patient had 2 bowel movements yesterday. Tolerating diet. Diet was discussed with the patient. Prednisone taper was ordered by GI. Patient follow-up with Dr. Antunez outpatient. No abdominal pain. Social history: Lives with his brother. Works in the [employer] at [employer]. Denies any smoking alcohol recreational drugs. Physical examination: VITAL SIGNS: 97.8, 78, 17, 112 x 73, 99% room air GENERAL: BMI 47.1, vertebral EYES: Pupils equal. Conjunctiva huber l. HEENT: External appearance of nose and ears normal, oral cavity grossly normal. NECK: JVD not raised; masses not palpable. HEART: First and second heart sounds are normal; no edema. LUNGS: Respiratory rate normal; clear to auscultation. ABDOMEN: Soft, nontender, liver spleen not palpable, no masses palpable. PSYCH: Alert and oriented x3; mood and affect huber l. INVESTIGATIONS, reviewed in the clinical context: TSH 0.831 February 05: White count 5.8 hemoglobin 11.5 platelets 382 February 03, 2025: White count 9.4 hemoglobin 12.6 platelets 428 sodium 137 potassium 3.8 creatinine 1.[address] abdomen pelvis with contrast: Fluid-filled with loss of aspiration and mild to moderate wall thickening of the transverse and left colon. Assessment plan: - Patient present with 3 months of progressive GI symptoms. Initially started off with Some loose stools. Last progressed to up to 10 bowel movements a day. Had fever and chills yesterday with a temperature recorded at home of 101. Bloody stool. Patient does have a normal white count with some increased monocytes. Likely ulcerative colitis as per colonoscopy Dr. Samreen Antunez following-will also follow-up outpatient. February 17, 2025 IV Solu-Medrol 20 mg Q8. Discharged on prednisone taper. - Morbid obesity BMI 47.1 Weight loss measures - Bradycardia likely vasovagal Seen by Dr. Chano Shen from cardiology. Follow-up in 3 weeks - Mild normocytic anemia from blood loss anemia from GI bleed Disposition: Home Past Medical History Past Medical History: No Reported History History of Any Multi-Drug Resistant Organisms: None Reported Past Surgical History: No Surgical Hx Reported Past Psychological History: Anxiety, Bipolar, Depression Smoking Status: Never smoker Past Alcohol Use History: None Reported Past Drug Use History: None Reported Plan - Discharge Summary New Discharge Prescriptions: New Acetaminophen Tab [Tylenol] 650 mg PO Q6HR PRN tab PRN Reason: Mild Pain Or Fever > 100.5 predniSONE 0 mg PO DIRECTED #126 tab Discontinued Loperamide [Imodium] 4 mg PO QID PRN PRN Reason: Loose Stool Discharge Medication List predniSONE 0 mg PO DIRECTED #126 tab 02/05/25 [Rx] Acetaminophen Tab [Tylenol] 650 mg PO Q6HR PRN tab 02/06/25 [Rx] Follow up Appointment(s)/Referral(s): Chano Shen MD [STAFF PHYSICIAN] - 3 Weeks (CALL AND MAKE DANTE!) Eve Antunez MD [STAFF PHYSICIAN] - 02/17/25 Federico Carrington MD [Primary Care Provider] - 02/11/25 Patient Instructions/Handouts: Colitis (ED) Discharge Disposition: HOME SELF-CARE
== END 2025-02-06 14:39 | disposition home or self-care (01) | DRG 386 ==
LOC: EC 23:58 → 6NMEDSUR 02-03 07:33 → OBSVTOIN 02-03 07:34 → 6NMEDSUR 02-03 18:58 → 3SCARD 02-03 22:09
PROVIDERS: ADMIT Hospitalist; ATTEND Hospitalist
PROC: 0DBL8ZX Excision of Transverse Colon, Via Natural or Artificial Opening Endoscopic, Diagnostic (ICD-10-PCS; 2025-02-04)
PROC: 0DBN8ZX Excision of Sigmoid Colon, Via Natural or Artificial Opening Endoscopic, Diagnostic (ICD-10-PCS; 2025-02-04)
PROC: 0DBP8ZX Excision of Rectum, Via Natural or Artificial Opening Endoscopic, Diagnostic (ICD-10-PCS; 2025-02-04)
PROC: 0DBH8ZX Excision of Cecum, Via Natural or Artificial Opening Endoscopic, Diagnostic (ICD-10-PCS; principal; 2025-02-04 07:55)
DX: K51.011 Ulcerative (chronic) pancolitis with rectal bleeding (principal); Z68.42 Body mass index [BMI] 45.0-49.9, adult; D50.0 Iron deficiency anemia secondary to blood loss (chronic); F31.9 Bipolar disorder, unspecified; E66.01 Morbid (severe) obesity due to excess calories; R00.1 Bradycardia, unspecified; F41.9 Anxiety disorder, unspecified; R55 Syncope and collapse
CPT/HCPCS: 36415; 45380; 74177; 80053; 81001; 83605; 84443; 85025; 85610; 85652; 85730; 86140; 86850; 86900; 86901; 87045; 87046; 87324; 88305; 96361; 96374; 96375; 99285

== ENCOUNTER 2025-03-13 15:37 | Inpatient (IN) | payer BC ==
--- NOTE | 2025-03-13 16:04 | ED ---
Fever HPI - General Chief Complaint: Shortness of Breath Stated Complaint: N/V/D Time Seen by Provider: 03/13/25 15:44 Source: patient, RN notes reviewed, old records reviewed Mode of arrival: ambulatory Limitations: no limitations - History of Present Illness Initial Comments: This is a 25-year-old male who presents to the ER today for inability to breathe severe shortness of breath fever nausea and vomiting for 3 to 4 days history of ulcerative colitis patient is on immunosuppressant MD Complaint: fever, malaise, weakness, other (Shortness of breath nausea vomiting) -: days(s) (3) Context: sick contacts Associated Symptoms: chills, myalgias, shortness of breath, abdominal pain Treatments Prior to Arrival: none - Related Data Home Medications Medication Instructions Recorded Confirmed Mesalamine [Lialda] 4.8 gm PO HS@2100 03/13/25 03/13/25 predniSONE See Taper PO DAILY 03/13/25 03/13/25 Previous Rx's Medication Instructions Recorded Acetaminophen Tab [Tylenol] 650 mg PO Q6HR PRN tab 02/06/25 Allergies Allergy/AdvReac Type Severity Reaction Status Date / Time No Known Allergies Allergy Verified 03/13/25 18:36 Review of Systems ROS Statement: Those systems with pertinent positive or pertinent negative responses have been documented in the HPI. ROS Other: All systems not noted in ROS Statement are negative. Past Medical History Past Medical History: No Reported History Additional Past Medical History / Comment(s): colitis History of Any Multi-Drug Resistant Organisms: None Reported Past Surgical History: No Surgical Hx Reported Past Psychological History: Anxiety, Bipolar, Depression Smoking Status: Never smoker Past Alcohol Use History: None Reported Past Drug Use History: None Reported General Exam Limitations: altered mental status, physical limitation General appearance: anxious, in distress, obese Head exam: Present: atraumatic, normocephalic, normal inspection Eye exam: Present: normal appearance, PERRL, EOMI. Absent: scleral icterus, conjunctival injection, periorbital swelling ENT exam: Present: normal exam, mucous membranes moist Neck exam: Present: normal inspection. Absent: tenderness, meningismus, lymphadenopathy Respiratory exam: Present: normal lung sounds bilaterally. Absent: respiratory distress, wheezes, rales, rhonchi, stridor Cardiovascular Exam: Present: tachycardia, normal heart sounds. Absent: systolic murmur, diastolic murmur, rubs, gallop, clicks GI/Abdominal exam: Present: soft, normal bowel sounds. Absent: distended, tend erness, guarding, rebound, rigid Extremities exam: Present: normal inspection, full ROM, normal capillary refill. Absent: tenderness, pedal edema, joint swelling, calf tenderness Back exam: Present: normal inspection Neurological exam: Present: alert, oriented X3, CN II-XII intact Psychiatric exam: Present: normal affect, normal mood Skin exam: Present: warm, dry, intact, normal color. Absent: rash Course Vital Signs 03/13/25 03/13/25 03/13/25 15:38 15:55 17:00 Temperature 99.4 F 98.9 F Pulse Rate 153 H 135 H 112 H Respiratory 20 19 18 Rate Blood Pressure 113/65 95/57 96/54 O2 Sat by Pulse 100 99 94 L Oximetry 03/13/25 03/13/25 03/13/25 18:00 19:00 20:00 Temperature 98.6 F Pulse Rate 104 H 103 H 93 Respiratory 19 14 16 Rate Blood Pressure 91/49 90/53 91/50 O2 Sat by Pulse 96 94 L 93 L Oximetry 03/13/25 21:00 Temperature 98.6 F Pulse Rate 102 H Respiratory 16 Rate Blood Pressure 90/46 O2 Sat by Pulse 97 Oximetry - Reevaluation(s) Reevaluation #1: 03/13/25 19:49 Medical records reviewed Reevaluation #2: 03/13/25 19:49 Patient symptoms gradually improving here in the ER Reevaluation #3: 03/13/25 19:49 Patient informed of results questions answered Reevaluation #4: Was pt. sent in by a medical professional or institution (, PA, HALF BACKER, urgent care, hospital, or correction...) When possible be specific @ -no Did you speak to anyone other than the patient for history (EMS, parent, family, police, friend...)? What history was obtained from this source @ -no Did you review nursing and triage notes (agree or disagree)? Why? @ -agree Are old charts reviewed (outside hosp., previous admission, EMS record, old EKG, old radiological studies, urgent care reports/EKG's, correction records)? Report findings @ -yes Differential Diagnosis (chest pain, altered mental status, abdominal pain women, abdominal pain men, vaginal bleeding, weakness, fever, dyspnea, syncope, headache, dizziness, GI bleed, back pain, seizure, CVA, palpatations, mental health, musculoskeletal)? @ -prior EKG interpreted by me (3pts min.). @ -yes X-rays interpreted by me (1pt min.). @ -yes negative for acute disease CT interpreted by me (1pt min.). @ -Yes positive colitis unchanged from prior U/S interpreted by me (1pt. min.). @ -no What testing was considered but not performed or refused? (CT, X-rays, U/S, labs)? Why? @ -none What meds were considered but not given or refused? Why? @ -none Did you discuss the management of the patient with other professionals (professionals i.e. , PA, HALF BACKER, lab, RT, psych nurse, social service worker, construction carpenter, teacher, senior commercial loan officer, case finishing machine adjuster)? Give summary @ -no Was smoking cessation discussed for >3mins.? @ -no Was critical care preformed (if so, how long)? @ -yes31 Were there social determinants of health that impacted care today? How? (Homelessness, low income, unemployed, alcoholism, drug addiction, transportation, low edu. Level, literacy, decrease access to med. care, penitentiary, rehab)? @ -none Was there de-escalation of care discussed even if they declined (Discuss DNR or withdrawal of care, Hospice)? DNR status @ -no What co-morbidities impacted this encounter? (DM, HTN, Smoking, COPD, CAD, Cancer, CVA, ARF, Chemo, Hep., AIDS, mental health diagnosis, sleep apnea, morbid obesity)? @ -none Was patient admitted / discharged? Hospital course, mention meds given and route, prescriptions, significant lab abnormalities, going to OR and other pertinent info. @ - 25 male who is on immunosuppressants secondary to ulcerative colitis coming in with fever nausea vomiting for 3 to 4 days. Heart rate 150s improving temperature hide improving patient started on broad-spectrum antibiotics does appear to have urinary tract infection, non-ST elevated VA Admitted Undiagnosed new problem with uncertain prognosis? @ -no Drug Therapy requiring intensive monitoring for toxicity (Heparin, Nitro, Insulin, Cardizem)? @ -no Were any procedures done? @ -no Diagnosis/symptom? @ -Fever, colitis, UTI, sepsis Acute, or Chronic, or Acute on Chronic? @ -Acute Uncomplicated (without systemic symptoms) or Complicated (systemic symptoms)? @ -Complicated Side effects of treatment? @ -no Exacerbation, Progression, or Severe Exacerbation? @ -exacerbation Poses a threat to life or bodily function? How? (Chest pain, USA, VA, pneumonia, PE, COPD, DKA, ARF, appy, cholecystitis, CVA, Diverticulitis, Homicidal, Suicidal, threat to staff... and all critical care pts) @ -yes significant sepsis - Consultations Consultation #1: Spoke with Dr. Rehman agrees to admit this patient Medical Decision Making - Medical Decision Making 25 male who is on immunosuppressants secondary to ulcerative colitis coming in with fever nausea vomiting for 3 to 4 days. Heart rate 150s improving temperature hide improving patient started on broad-spectrum antibiotics does appear to have urinary tract infection, non-ST elevated VA - Lab Data Result diagrams: 03/16/25 05:39 03/16/25 05:39 Lab Results 03/13/25 03/13/25 03/13/25 Range/Units 16:22 16:22 16:22 WBC 9.08 (4.50-10.00) 10*3/uL RBC 5.08 (4.40-5.60) 10*6/uL Hgb 12.6 L (13.0-17.0) g/dL Hct 39.1 L (39.6-50.0) % MCV 77.0 L (80.0-97.0) fL MCH 24.8 L (27.0-32.0) pg MCHC 32.2 (32.0-37.0) g/dL Plt Count 425 (140-440) 10*3/uL MPV 10.3 (9.5-12.2) fL Immature Gran % (Auto) 1.0 % Neutrophils % (Manual) 70 % Lymphocytes % (Manual) 20 % Monocytes % (Manual) 10 % Immature Gran # 0.09 H (0.00-0.04) 10*3/uL Neutrophils # (Manual) 6.36 (1.3-7.7) k/uL Lymphocytes # (Manual) 1.82 (1.0-4.8) k/uL Monocytes # (Manual) 0.91 (0-1.0) k/uL Nucleated RBCs 0 (0-0) /100 WBC Manual Slide Review Performed Toxic Vacuolation Present Poikilocytosis (manual Present Anisocytosis (manual) Present Ovalocytes Present PT 14.0 H (10.0-12.5) sec INR 1.3 H (<1.2) APTT 24.3 (22.0-30.0) sec D-Dimer (<0.60) mg/L FEU Sodium 134 L (137-145) mmol/L Potassium 3.8 (3.5-5.1) mmol/L Chloride 97 L (98-107) mmol/L Carbon Dioxide 23 (22-30) mmol/L Anion Gap 14 mmol/L BUN 18 (9-20) mg/dL Creatinine 1.21 (0.66-1.25) mg/dL Est GFR (CKD-EPI)AfAm >90 (>60 ml/min/1.73 sqM) Est GFR (CKD-EPI)NonAf 82 (>60 ml/min/1.73 sqM) Glucose 123 H (74-99) mg/dL Lactic Ac Sepsis Rflx Plasma Lactic Acid Dain (0.7-2.0) mmol/L Calcium 9.2 (8.4-10.2) mg/dL Phosphorus 3.3 (2.5-4.5) mg/dL Magnesium 1.9 (1.6-2.3) mg/dL Total Bilirubin 0.8 (0.2-1.3) mg/dL AST 25 (17-59) U/L ALT 18 (4-49) U/L Alkaline Phosphatase 77 (38-126) U/L Creatine Kinase (55-170) U/L Troponin I (0.000-0.034) ng/mL C-Reactive Protein 33.2 H (<1.0) mg/dL NT-Pro-B Natriuret Pep pg/mL Total Protein 6.8 (6.3-8.2) g/dL Albumin 3.6 (3.5-5.0) g/dL Urine Color Urine Appearance (Clear) Urine pH (5.0-8.0) Ur Specific [place] (1.001-1.035) Urine Protein (Negative) Urine Glucose (UA) (Negative) Urine Ketones (Negative) Urine Blood (Negative) Urine Nitrite (Negative) Urine Bilirubin (Negative) Urine Urobilinogen (<2.0) mg/dL Ur Leukocyte Esterase (Negative) Urine RBC (0-5) /hpf Urine WBC (0-5) /hpf Ur Squamous Epith Cells (0-4) /hpf Urine Mucus (None) /hpf Influenza Type A (PCR) (Not Detectd) Influenza Type B (PCR) (Not Detectd) RSV (PCR) (Not Detectd) SARS-CoV-2 (PCR) (Not Detectd) 03/13/25 03/13/25 03/13/25 Range/Units 16:22 16:22 16:22 WBC (4.50-10.00) 10*3/uL RBC (4.40-5.60) 10*6/uL Hgb (13.0-17.0) g/dL Hct (39.6-50.0) % MCV (80.0-97.0) fL MCH (27.0-32.0) pg MCHC (32.0-37.0) g/dL Plt Count (140-440) 10*3/uL MPV (9.5-12.2) fL Immature Gran % (Auto) % Neutrophils % (Manual) % Lymphocytes % (Manual) % Monocytes % (Manual) % Immature Gran # (0.00-0.04) 10*3/uL Neutrophils # (Manual) (1.3-7.7) k/uL Lymphocytes # (Manual) (1.0-4.8) k/uL Monocytes # (Manual) (0-1.0) k/uL Nucleated RBCs (0-0) /100 WBC Manual Slide Review Toxic Vacuolation Poikilocytosis (manual Anisocytosis (manual) Ovalocytes PT (10.0-12.5) sec INR (<1.2) APTT (22.0-30.0) sec D-Dimer (<0.60) mg/L FEU Sodium (137-145) mmol/L Potassium (3.5-5.1) mmol/L Chloride (98-107) mmol/L Carbon Dioxide (22-30) mmol/L Anion Gap mmol/L BUN (9-20) mg/dL Creatinine (0.66-1.25) mg/dL Est GFR (CKD-EPI)AfAm (>60 ml/min/1.73 sqM) Est GFR (CKD-EPI)NonAf (>60 ml/min/1.73 sqM) Glucose (74-99) mg/dL Lactic Ac Sepsis Rflx Plasma Lactic Acid Dain 2.1 H* (0.7-2.0) mmol/L Calcium (8.4-10.2) mg/dL Phosphorus (2.5-4.5) mg/dL Magnesium (1.6-2.3) mg/dL Total Bilirubin (0.2-1.3) mg/dL AST (17-59) U/L ALT (4-49) U/L Alkaline Phosphatase (38-126) U/L Creatine Kinase (55-170) U/L Troponin I 0.822 H* (0.000-0.034) ng/mL C-Reactive Protein (<1.0) mg/dL NT-Pro-B Natriuret Pep pg/mL Total Protein (6.3-8.2) g/dL Albumin (3.5-5.0) g/dL Urine Color Urine Appearance (Clear) Urine pH (5.0-8.0) Ur Specific [place] (1.001-1.035) Urine Protein (Negative) Urine Glucose (UA) (Negative) Urine Ketones (Negative) Urine Blood (Negative) Urine Nitrite (Negative) Urine Bilirubin (Negative) Urine Urobilinogen (<2.0) mg/dL Ur Leukocyte Esterase (Negative) Urine RBC (0-5) /hpf Urine WBC (0-5) /hpf Ur Squamous Epith Cells (0-4) /hpf Urine Mucus (None) /hpf Influenza Type A (PCR) Not Detected (Not Detectd) Influenza Type B (PCR) Not Detected (Not Detectd) RSV (PCR) Not Detected (Not Detectd) SARS-CoV-2 (PCR) Not Detected (Not Detectd) 03/13/25 03/13/25 03/13/25 Range/Units 16:22 16:22 16:46 WBC (4.50-10.00) 10*3/uL RBC (4.40-5.60) 10*6/uL Hgb (13.0-17.0) g/dL Hct (39.6-50.0) % MCV (80.0-97.0) fL MCH (27.0-32.0) pg MCHC (32.0-37.0) g/dL Plt Count (140-440) 10*3/uL MPV (9.5-12.2) fL Immature Gran % (Auto) % Neutrophils % (Manual) % Lymphocytes % (Manual) % Monocytes % (Manual) % Immature Gran # (0.00-0.04) 10*3/uL Neutrophils # (Manual) (1.3-7.7) k/uL Lymphocytes # (Manual) (1.0-4.8) k/uL Monocytes # (Manual) (0-1.0) k/uL Nucleated RBCs (0-0) /100 WBC Manual Slide Review Toxic Vacuolation Poikilocytosis (manual Anisocytosis (manual) Ovalocytes PT (10.0-12.5) sec INR (<1.2) APTT (22.0-30.0) sec D-Dimer 2.67 H (<0.60) mg/L FEU Sodium (137-145) mmol/L Potassium (3.5-5.1) mmol/L Chloride (98-107) mmol/L Carbon Dioxide (22-30) mmol/L Anion Gap mmol/L BUN (9-20) mg/dL Creatinine (0.66-1.25) mg/dL Est GFR (CKD-EPI)AfAm (>60 ml/min/1.73 sqM) Est GFR (CKD-EPI)NonAf (>60 ml/min/1.73 sqM) Glucose (74-99) mg/dL Lactic Ac Sepsis Rflx Y Plasma Lactic Acid Dain (0.7-2.0) mmol/L Calcium (8.4-10.2) mg/dL Phosphorus (2.5-4.5) mg/dL Magnesium (1.6-2.3) mg/dL Total Bilirubin (0.2-1.3) mg/dL AST (17-59) U/L ALT (4-49) U/L Alkaline Phosphatase (38-126) U/L Creatine Kinase 66 (55-170) U/L Troponin I (0.000-0.034) ng/mL C-Reactive Protein (<1.0) mg/dL NT-Pro-B Natriuret Pep 45170 pg/mL Total Protein (6.3-8.2) g/dL Albumin (3.5-5.0) g/dL Urine Color Urine Appearance (Clear) Urine pH (5.0-8.0) Ur Specific [place] (1.001-1.035) Urine Protein (Negative) Urine Glucose (UA) (Negative) Urine Ketones (Negative) Urine Blood (Negative) Urine Nitrite (Negative) Urine Bilirubin (Negative) Urine Urobilinogen (<2.0) mg/dL Ur Leukocyte Esterase (Negative) Urine RBC (0-5) /hpf Urine WBC (0-5) /hpf Ur Squamous Epith Cells (0-4) /hpf Urine Mucus (None) /hpf Influenza Type A (PCR) (Not Detectd) Influenza Type B (PCR) (Not Detectd) RSV (PCR) (Not Detectd) SARS-CoV-2 (PCR) (Not Detectd) 03/13/25 Range/Units 18:04 WBC (4.50-10.00) 10*3/uL RBC (4.40-5.60) 10*6/uL Hgb (13.0-17.0) g/dL Hct (39.6-50.0) % MCV (80.0-97.0) fL MCH (27.0-32.0) pg MCHC (32.0-37.0) g/dL Plt Count (140-440) 10*3/uL MPV (9.5-12.2) fL Immature Gran % (Auto) % Neutrophils % (Manual) % Lymphocytes % (Manual) % Monocytes % (Manual) % Immature Gran # (0.00-0.04) 10*3/uL Neutrophils # (Manual) (1.3-7.7) k/uL Lymphocytes # (Manual) (1.0-4.8) k/uL Monocytes # (Manual) (0-1.0) k/uL Nucleated RBCs (0-0) /100 WBC Manual Slide Review Toxic Vacuolation Poikilocytosis (manual Anisocytosis (manual) Ovalocytes PT (10.0-12.5) sec INR (<1.2) APTT (22.0-30.0) sec D-Dimer (<0.60) mg/L FEU Sodium (137-145) mmol/L Potassium (3.5-5.1) mmol/L Chloride (98-107) mmol/L Carbon Dioxide (22-30) mmol/L Anion Gap mmol/L BUN (9-20) mg/dL Creatinine (0.66-1.25) mg/dL Est GFR (CKD-EPI)AfAm (>60 ml/min/1.73 sqM) Est GFR (CKD-EPI)NonAf (>60 ml/min/1.73 sqM) Glucose (74-99) mg/dL Lactic Ac Sepsis Rflx Plasma Lactic Acid Dain (0.7-2.0) mmol/L Calcium (8.4-10.2) mg/dL Phosphorus (2.5-4.5) mg/dL Magnesium (1.6-2.3) mg/dL Total Bilirubin (0.2-1.3) mg/dL AST (17-59) U/L ALT (4-49) U/L Alkaline Phosphatase (38-126) U/L Creatine Kinase (55-170) U/L Troponin I (0.000-0.034) ng/mL C-Reactive Protein (<1.0) mg/dL NT-Pro-B Natriuret Pep pg/mL Total Protein (6.3-8.2) g/dL Albumin (3.5-5.0) g/dL Urine Color Yellow Urine Appearance Cloudy (Clear) Urine pH 6.0 (5.0-8.0) Ur Specific [place] 1.043 H (1.001-1.035) Urine Protein 1+ H (Negative) Urine Glucose (UA) Negative (Negative) Urine Ketones 1+ H (Negative) Urine Blood Moderate H (Negative) Urine Nitrite Negative (Negative) Urine Bilirubin Negative (Negative) Urine Urobilinogen 2.0 (<2.0) mg/dL Ur Leukocyte Esterase Small H (Negative) Urine RBC 24 H (0-5) /hpf Urine WBC 102 H (0-5) /hpf Ur Squamous Epith Cells <1 (0-4) /hpf Urine Mucus Many H (None) /hpf Influenza Type A (PCR) (Not Detectd) Influenza Type B (PCR) (Not Detectd) RSV (PCR) (Not Detectd) SARS-CoV-2 (PCR) (Not Detectd) - EKG Data -: EKG Interpreted by Me (EKG is sinus tachycardia 134 GA 146 QRS 87 QTc 356) Critical Care Time Critical Care Time: Yes Total Critical Care Time: 31 Disposition Clinical Impression: Dehydration, Gastroenteritis, UTI (urinary tract infection), Fever, NSTEMI (non-ST elevated myocardial infarction), Colitis, Sepsis Disposition: ADMITTED IP TO THIS HOSP Condition: Serious Is patient prescribed a controlled substance at d/c from ED?: No Time of Disposition: 19:30
[2025-03-13] MEDS: ACETAMINOPHEN IV (For NPO) 1,000 MG in EMPTY BAG 1 BAG IVPB STA (16:29)
[2025-03-13] MEDS: SODIUM CHLORIDE 0.9% 1,000 ML IV SCH (16:29)
[2025-03-13] MEDS: PROCHLORPERAZINE INJ 10 MG/2 ML VIAL IVP STA (16:30)
[2025-03-13 16:35] LABS: HCT 39.1 % (39.6-50.0); HGB 12.6 g/dL (13.0-17.0); MCH 24.8 pg (27.0-32.0); MCHC 32.2 g/dL (32.0-37.0); MCV 77.0 fL (80.0-97.0); Platelet Count 425 10*3/uL (140-440); RBC 5.08 10*6/uL (4.40-5.60); RDW 13.4 % (11.5-14.5); WBC 9.08 10*3/uL (4.50-10.00)
[2025-03-13 16:44] LABS: INR 1.3 (<1.2); Partial Thromboplastin Time 24.3 sec (22.0-30.0); Prothrombin Time 14.0 sec (10.0-12.5)
[2025-03-13 16:46] LABS: ALT 18 U/L (4-49); AST 25 U/L (17-59); African American GFR (CKD) >90 (>60 ml/min/1.73 sqM); Albumin 3.6 g/dL (3.5-5.0); Alkaline Phosphatase 77 U/L (38-126); Anion Gap 14 mmol/L; Blood Urea Nitrogen 18 mg/dL (9-20); Calcium 9.2 mg/dL (8.4-10.2); Carbon Dioxide 23 mmol/L (22-30); Chloride 97 mmol/L (98-107); Glucose 123 mg/dL (74-99); Magnesium 1.9 mg/dL (1.6-2.3); Non-African American GFR(CKD) 82 (>60 ml/min/1.73 sqM); Potassium 3.8 mmol/L (3.5-5.1); Sodium 134 mmol/L (137-145); Total Protein 6.8 g/dL (6.3-8.2)
--- NOTE | 2025-03-13 16:52 | XR ---
EXAMINATION TYPE: XR chest 1V portable DATE OF EXAM: 03/13/2025 4:47 PM COMPARISON: None. CLINICAL INDICATION: Male, 25 years old with history of sob; [facility] TECHNIQUE: XR chest 1V portable Frontal view of the chest. FINDINGS: Lungs/Pleura: There is no evidence of pleural effusion, focal consolidation, or pneumothorax. Pulmonary vascularity: Unremarkable. Heart/mediastinum: Cardiomediastinal silhouette is unremarkable. Musculoskeletal: No acute osseous pathology. Other findings: None IMPRESSION: No acute cardiopulmonary disease/process. [facility], , 03/13/2025 4:49 PM
[2025-03-13 17:04] LABS: Lymphocytes # (M) 1.82 k/uL (1.0-4.8); Monocytes # (M) 0.91 k/uL (0-1.0); Neutrophils # (M) 6.36 k/uL (1.3-7.7); Neutrophils % (M) 70 %; Total Cells Counted 100
[2025-03-13 17:05] LABS: Toxic Vacuolation Present
[2025-03-13 17:06] LABS: Anisocytosis (M) Present; Ovalocytes Present; Poikilocytosis (M) Present
[2025-03-13 17:11] LABS: RSV Not Detected (Not Detectd)
[2025-03-13 18:15] LABS: Bilirubin,Urine Negative (Negative); Blood,Urine Moderate (Negative); Color,Urine Yellow; Glucose,Urine (UA) Negative (Negative); Ketones,Urine 1+ (Negative); Leukocyte Esterase,Urine Small (Negative); Mucus,Urine Many /hpf; Nitrite,Urine Negative (Negative); PH, Urine 6.0 (5.0-8.0); Protein,Urine 1+ (Negative); RBC,Urine 24 /hpf (0-5); Specific Gravity,Urine 1.043 (1.001-1.035); Squamous Epithelial Cell,Urine <1 /hpf (0-4); Urobilinogen,Urine 2.0 mg/dL (<2.0); WBC,Urine 102 /hpf (0-5)
[2025-03-13 18:19] LABS: Creatine Kinase 66 U/L (55-170)
[2025-03-13 18:29] LABS: NT-Pro-B-Type Natriuretic Pept 10200 pg/mL
[2025-03-13] MEDS ORDERED: VANCOMYCIN IV PER PHARMACY 1 EACH MISC MISCELLANE PRN (18:40)
[2025-03-13] MEDS: KETOROLAC 15 MG/ML 1 ML VIAL IVP STA (18:49)
[2025-03-13] MEDS: SODIUM CHLORIDE 0.9% 1,000 ML IV ONE (18:51)
[2025-03-13] MEDS: SODIUM CHLORIDE 0.9% 500 ML 500 ML IV ONE (18:52)
[2025-03-13] MEDS: PIPERACILLIN-TAZOBACTAM 3.375 GM in SODIUM CHLORIDE 0.9% 100 ML IVPB STA (18:59)
--- NOTE | 2025-03-13 19:49 | CT ---
EXAMINATION TYPE: CT abdomen pelvis w con DATE OF EXAM: 03/13/2025 7:42 PM COMPARISON: CT abdomen/pelvis 02/03/2025. CLINICAL INDICATION: Male, 25 years old with history of pain; body aches, nausea, vomiting, fever. TECHNIQUE: Axial CT abdomen pelvis w con;Sagittal and coronal reformats were created on a separate w orkstation. Contrast used:100 ml mL of Isovue 370 with IV Contrast, (none if empty) Oral contrast used: without Oral Contrast (none if empty) CT DLP: 1590 mGycm, Automated exposure control for dose reduction was used. FINDINGS: LOWER CHEST: Unremarkable ABDOMEN LIVER: Unremarkable GALLBLADDER AND BILE DUCTS: Unremarkable. PANCREAS: Unremarkable. SPLEEN: Unremarkable.c ADRENAL GLANDS: Unremarkable. KIDNEYS AND URETERS: No evidence of hydronephrosis or renal calculus. The ureters are unremarkable. PELVIS BLADDER: No evidence for wall thickening or mass given limitations of exam. REPRODUCTIVE: Unremarkable. ABDOMEN & PELVIS STOMACH AND BOWEL: Stomach and duodenum are unremarkable. Persistent liquid stool and long segment wa ll thickening of the transverse, descending and sigmoid colon with mild adjacent mesenteric inflammat ory changes suggesting either infectious or inflammatory colitis. No pericolic abscess or evidence of free air at this time. Appendix unremarkable. No evidence of bowel obstruction. PERITONEUM/RETROPERITONEUM: No evidence of pneumoperitoneum or free fluid. VASCULATURE: No evidence of aortic aneurysm. MUSCULOSKELETAL: No acute osseous abnormalities LYMPH NODES: No gross evidence for lymphadenopathy. SOFT TISSUE/ABDOMINAL WALL: Unremarkable IMPRESSION: Liquid stool suggesting diarrhea and long segment wall thickening of the colon suggestive of infectio us or inflammatory colitis. Overall, findings are similar to recent study 02/03/2025. No pericolic abs cess. [facility], , 03/13/2025 7:47 PM
--- NOTE | 2025-03-13 19:52 | CT ---
EXAMINATION TYPE: CT angio chest DATE OF EXAM: 03/13/2025 7:42 PM COMPARISON: Chest radiograph 03/13/2025. CLINICAL INDICATION: Male, 25 years old with history of pain; body aches, nausea, vomiting, fever. TECHNIQUE/CONTRAST: CTA scan of the thorax is performed with IV Contrast, patient injected with 100 ml mL of Isovue 370, MIP images are created and reviewed these are created on a separate workstation.. CT DLP: 800.5 mGycm, Automated exposure control for dose reduction was used. FINDINGS: Pulmonary Artery: There is no evidence for a filling defect within the pulmonary vasculature to sugge st acute pulmonary embolism. The pulmonary artery is of normal size. Lungs/Pleura: No evidence of focal consolidation, pleural effusion or pneumothorax. Airway: Large airways are patent. Heart: Heart is within normal limits for size. Vasculature: No evidence of aortic aneurysm. Mediastinum: No gross evidence of adenopathy. Musculoskeletal: No acute osseous abnormalities Soft Tissues/lymph nodes: Unremarkable. Lower neck: No significant findings. IMPRESSION: No evidence of acute pulmonary embolism or acute pulmonary pathology. [facility], , 03/13/2025 7:49 PM
[2025-03-13] MEDS ORDERED: IBUPROFEN 600 MG TAB PO PRN (20:06)
[2025-03-13] MEDS ORDERED: ACETAMINOPHEN TAB 500 MG TAB PO PRN (20:06)
[2025-03-13] MEDS ORDERED: NALOXONE 0.4 MG/ML 1 ML VIAL IV PRN (20:06)
[2025-03-13] MEDS: VANCOMYCIN 2,000 MG in SODIUM CHLORIDE 0.9% 500 ML 500 ML IVPB ONE (20:49)
[2025-03-13] MEDS: LACTATED RINGERS 1,000 ML IV SCH (20:55)
[2025-03-13] MEDS: PANTOPRAZOLE 40 MG/10 ML VIAL IV SCH (21:45)
[2025-03-14 06:33] LABS: HCT 32.3 % (39.6-50.0); HGB 10.2 g/dL (13.0-17.0); MCH 24.3 pg (27.0-32.0); MCHC 31.6 g/dL (32.0-37.0); MCV 77.1 fL (80.0-97.0); Platelet Count 365 10*3/uL (140-440); RBC 4.19 10*6/uL (4.40-5.60); RDW 13.8 % (11.5-14.5); WBC 8.99 10*3/uL (4.50-10.00)
[2025-03-14 06:45] LABS: ALT 14 U/L (4-49); AST 22 U/L (17-59); African American GFR (CKD) >90 (>60 ml/min/1.73 sqM); Albumin 2.6 g/dL (3.5-5.0); Alkaline Phosphatase 55 U/L (38-126); Anion Gap 11 mmol/L; Blood Urea Nitrogen 14 mg/dL (9-20); Calcium 8.2 mg/dL (8.4-10.2); Carbon Dioxide 21 mmol/L (22-30); Chloride 102 mmol/L (98-107); Glucose 131 mg/dL (74-99); Magnesium 1.7 mg/dL (1.6-2.3); Non-African American GFR(CKD) >90 (>60 ml/min/1.73 sqM); Potassium 3.5 mmol/L (3.5-5.1); Sodium 134 mmol/L (137-145); Total Protein 5.2 g/dL (6.3-8.2)
[2025-03-14 08:08] LABS: Anisocytosis (M) Present; Poikilocytosis (M) Present
[2025-03-14 08:22] LABS: Lymphocytes # (M) 1.62 k/uL (1.0-4.8); Monocytes # (M) 2.07 k/uL (0-1.0); Neutrophils # (M) 5.30 k/uL (1.3-7.7); Neutrophils % (M) 59 %; Total Cells Counted 100
[2025-03-14] MEDS: VANCOMYCIN 2,000 MG in SODIUM CHLORIDE 0.9% 500 ML 500 ML IVPB SCH (09:12)
[2025-03-14] MEDS: ONDANSETRON 4 MG/2 ML VIAL IVP PRN (09:24)
--- NOTE | 2025-03-14 11:00 | P.CRDCN ---
History of Present Illness History of present illness: HISTORY OF PRESENT ILLNESS: This is a 25-year-old male with a past medical history significant for bradycardia, ulcerative colitis, and obesity. Patient follows in the office with Dr. Shen. We have been asked to see the patient in consultation for elevated troponins. Patient examined at the bedside. Patient states he developed a fever on Saturday. He states on he began to have nausea and then developed vomiting. Additionally he reports having diarrhea for the past few days. He also reports having some burning with urination over the past couple days. He does have a history of ulcerative colitis and is on immunosuppressive therapy. Patient presented to the hospital for further evaluation. Patient was found to be hypotensive with a blood pressure in the 80s. Additionally he was tachycardic in the 150s. Patient denies any chest pain or shortness of breath. He does report having some blood in his stool recently. He does report also having some blood in his urine. DIAGNOSTICS: - EKG reveals sinus tachycardia with a heart rate of 134. No signs of acute ischemia. - Chest xray negative for acute process. - Chest CTA: Negative for pulmonary embolism - CT abdomen pelvis: Liquid stool suggesting diarrhea and long segment wall thickening of the colon suggestive of infectious or inflammatory colitis. - Laboratory data: WBC 8.99. Hemoglobin 10.2. Platelet count 365. D-dimer 2.67. Sodium 134. Potassium 3.5. Lactic acid 2.1. Troponin 0.822. proBNP 10,200 - Current home cardiac medication include: None - No previous echocardiogram, stress test, or cardiac catheterization available in EMR for review REVIEW OF SYSTEMS: At the time of my exam: CONSTITUTIONAL: Denies fever or chills. HEENT: Denies blurred vision, vision changes, or eye pain. Denies hemoptysis CARDIOVASCULAR: Denies chest pain. Denies orthopnea. Denies PND. Denies palpitations RESPIRATORY: Denies shortness of breath. GASTROINTESTINAL: Denies abdominal pain. Reports diarrhea. HEMATOLOGIC: Denies bleeding disorders. GENITOURINARY: Denies any blood in urine. SKIN: Denies pruitis. Denies rash. PHYSICAL EXAM: VITAL SIGNS: Reviewed. GENERAL: Well-developed in no acute distress. HEENT: Head is normocephalic. Pupils are equal, round. Sclerae anicteric. Mucous membranes of the mouth are moist. Neck supple. No JVD or thyromegaly LUNGS: Respirations even and unlabored. Lungs essentially clear to auscultation bilaterally. HEART: Tachycardic. Regular rate and rhythm. S1 and S2 heard. ABDOMEN: Soft. Nondistended. Nontender. EXTREMITIES: Normal range of motion. No clubbing or cyanosis. Peripheral pulses intact. No lower extremity edema NEUROLOGIC: Awake and alert. Oriented x 3. ASSESSMENT: Sepsis Urinary tract infection Ulcerative colitis Elevated troponin, type II [place] secondary to sepsis, no evidence of acute coronary syndrome Elevated proBNP of unclear clinical significance History of bradycardia secondary to vasovagal Morbid obesity: BMI 44.5 PLAN: An acute coronary event has been ruled out Obtain 2D echo to assess cardiac structure and function Repeat BMP and BNP in a.m. Check TSH Treatment of sepsis per infectious disease and primary medicine Further recommendations pending patient course Nurse practitioner note has been reviewed by physician. Signing provider agrees with the documented findings, assessment, and plan of care documented by HEDDLER TIER as a scribe. Past Medical History Past Medical History: No Reported History Additional Past Medical History / Comment(s): colitis History of Any Multi-Drug Resistant Organisms: None Reported Past Surgical History: No Surgical Hx Reported Past Psychological History: Anxiety, Bipolar, Depression Smoking Status: Never smoker Past Alcohol Use History: None Reported Past Drug Use History: None Reported Medications and Allergies Home Medications Medication Instructions Recorded Confirmed Type Acetaminophen Tab [Tylenol] 650 mg PO Q6HR PRN tab 02/06/25 03/13/25 Rx Mesalamine [Lialda] 4.8 gm PO HS@2100 03/13/25 03/13/25 History predniSONE See Taper PO DAILY 03/13/25 03/13/25 History Allergies Allergy/AdvReac Type Severity Reaction Status Date / Time No Known Allergies Allergy Verified 03/13/25 18:36 Physical Exam Vitals: Vital Signs Temp Pulse Pulse Pulse Resp BP BP 03/14/25 08:05 99.4 F 124 H 16 87/56 03/14/25 04:00 99.6 F 116 H 19 88/54 03/14/25 01:57 94/55 03/14/25 01:00 80/47 03/14/25 00:30 74/49 03/14/25 00:00 100.2 F H 125 H 19 89/61 03/13/25 23:30 83/48 03/13/25 23:00 86/55 03/13/25 22:45 85/52 03/13/25 22:19 82/50 03/13/25 22:05 99.2 F 19 83/59 03/13/25 21:00 98.6 F 102 H 16 90/46 03/13/25 20:00 98.6 F 93 16 91/50 03/13/25 19:00 103 H 14 90/53 03/13/25 18:00 104 H 19 91/49 03/13/25 17:00 98.9 F 112 H 18 96/54 03/13/25 15:55 135 H 19 95/57 03/13/25 15:38 99.4 F 153 H 20 113/65 Pulse Ox 03/14/25 08:05 94 L 03/14/25 04:00 96 03/14/25 01:57 03/14/25 01:00 03/14/25 00:30 03/14/25 00:00 98 03/13/25 23:30 03/13/25 23:00 03/13/25 22:45 03/13/25 22:19 03/13/25 22:05 96 03/13/25 21:00 97 03/13/25 20:00 93 L 03/13/25 19:00 94 L 03/13/25 18:00 96 03/13/25 17:00 94 L 03/13/25 15:55 99 03/13/25 15:38 100 Intake and Output 03/13/25 03/14/25 03/14/25 22:59 06:59 14:59 Intake Total 150 1000 118 Output Total 6 Balance 150 994 118 Intake: Intake, IV Titration 150 1000 Amount Lactated Ringers 1,000 ml 150 1000 @ 150 mls/hr IV .Q6H40M [facility] Rx#:[id number] Oral 118 Output: Stool 6 Other: Voiding Method Urinal Urinal # Voids 1 2 Weight 140.614 kg 98.2 kg 144.6 kg Results 03/14/25 05:32 03/14/25 05:32 Cardiac Enzymes 03/13/25 03/13/25 03/14/25 Range/Units 16:22 16:22 05:32 AST 25 22 (17-59) U/L Troponin I 0.822 H* (0.000-0.034) ng/mL Coagulation 03/13/25 Range/Units 16:22 PT 14.0 H (10.0-12.5) sec APTT 24.3 (22.0-30.0) sec CBC 03/13/25 03/14/25 Range/Units 16:22 05:32 WBC 9.08 8.99 (4.50-10.00) 10*3/uL RBC 5.08 4.19 L (4.40-5.60) 10*6/uL Hgb 12.6 L 10.2 L (13.0-17.0) g/dL Hct 39.1 L 32.3 L (39.6-50.0) % Plt Count 425 365 (140-440) 10*3/uL Comprehensive Metabolic Panel 03/13/25 03/14/25 Range/Units 16:22 05:32 Sodium 134 L 134 L (137-145) mmol/L Potassium 3.8 3.5 (3.5-5.1) mmol/L Chloride 97 L 102 (98-107) mmol/L Carbon Dioxide 23 21 L (22-30) mmol/L BUN 18 14 (9-20) mg/dL Creatinine 1.21 1.06 (0.66-1.25) mg/dL Glucose 123 H 131 H (74-99) mg/dL Calcium 9.2 8.2 L (8.4-10.2) mg/dL AST 25 22 (17-59) U/L ALT 18 14 (4-49) U/L Alkaline Phosphatase 77 55 (38-126) U/L Total Protein 6.8 5.2 L (6.3-8.2) g/dL Albumin 3.6 2.6 L (3.5-5.0) g/dL Current Medications Generic Name Dose Route Start Last Admin Trade Name Freq PRN Reason Stop Dose Admin Acetaminophen 1,000 mg 03/13/25 20:06 Acetaminophen Tab 500 Mg Tab PO Q6HR PRN Mild Pain or Fever > 100.5 Vancomycin HCl 2,000 mg/ 500 mls @ 167 mls/hr 03/14/25 09:00 03/14/25 09:12 Sodium Chloride IVPB 167 mls/hr Q12H [facility] Administration Lactated Ringer's 1,000 mls @ 150 mls/hr 07/19/25 20:00 03/14/25 04:29 Lactated Ringers IV 150 mls/hr .Q6H40M [facility] Administration Ibuprofen 600 mg 03/13/25 20:06 Ibuprofen 600 Mg Tab PO Q6HR PRN Mild Pain or Fever > 100.5 Naloxone HCl 0.2 mg 03/13/25 20:06 Naloxone 0.4 Mg/Ml 1 Ml Vial IV Q2M PRN Opioid Reversal Ondansetron HCl 4 mg 03/13/25 20:06 03/14/25 09:24 Ondansetron 4 Mg/2 Ml Vial IVP 4 mg Q8HR PRN Administration Nausea And Vomiting Pantoprazole Sodium 40 mg 03/13/25 20:15 03/14/25 08:07 Pantoprazole 40 Mg/10 Ml Vial IV 40 mg DAILY FIDEL Administration Intake and Output 03/13/25 03/14/25 03/14/25 22:59 06:59 14:59 Intake Total 150 1000 118 Output Total 6 Balance 150 994 118 Intake: Intake, IV Titration 150 1000 Amount Lactated Ringers 1,000 ml 150 1000 @ 150 mls/hr IV .Q6H40M [facility] Rx#:[id number] Oral 118 Output: Stool 6 Other: Voiding Method Urinal Urinal # Voids 1 2 Weight 140.614 kg 98.2 kg 144.6 kg Patient Weight 03/15/25 06:59 Weight 144.6 kg 03/14/25 05:32 03/14/25 05:32
[2025-03-14] MEDS: PROCHLORPERAZINE INJ 10 MG/2 ML VIAL IVP PRN (11:53)
[2025-03-14] MEDS: PIPERACILLIN-TAZOBACTAM 3.375 GM in SODIUM CHLORIDE 0.9% 100 ML IVPB SCH (11:53)
[2025-03-14] MEDS: methylPREDNISolone SOD SUCCI 40 MG/ML 1 ML VIAL IV SCH (15:43)
[2025-03-14] MEDS: ENOXAPARIN 40 MG/0.4 ML SYRINGE SQ SCH (15:43)
[2025-03-14] MEDS: BALSALAZIDE DISODIUM 750 MG CAPSULE PO SCH (16:40)
--- NOTE | 2025-03-14 18:32 | P.CONS ---
History of Present Illness - Reason for Consult Consult date: 03/14/25 Fever Requesting physician: Nguyễn Kelley - Chief Complaint Vomiting unable to keep anything down x 3 days - History of Present Illness Patient is a 25-year-old male past medical history significant for anxiety depression bipolar history of ulcerative colitis for the patient has been on prednisone and mesalamine presenting to the ER concerning for nausea and vomiting unable to keep anything down for the last 3 days patient mention his symptoms started on Saturday when he started having fever with rigors and chills he did have some headache at that time subsequently resolved after the patient not having nausea vomiting as well as diarrhea unable to keep anything down patient denies any blood or glucose in the stool he did have some urinary symptoms of burning and dark urine on presentation to the hospital he did have low-grade fever of 99.4 F did have a temperature of 100.2 at midnight patient has been tachycardic mildly hypertensive but not requiring any pressor support he is not hypoxic no need for supplemental oxygen patient did have an event of 9.08 with a left shift creatinine is 1.21 electrolyte has been normal liver enzymes are normal troponin is mildly elevated CRP is 33.2 urine has been positive influenza RSV COVID testing negative stool for C. difficile was negative patient did have a abdominal pelvis CT did shows liquid stool suggesting diarrhea and long segment wall thickening of the colon suggestive of infectious or inflammatory colitis CT of the chest did not show any pneumonia patient did receive a dose of Zosyn in the ER has been started on vancomycin infectious disease was consulted for further management of antibiotic therapy Review of Systems Positive point and negatives has been mentioned in the HPI, complete review of systems was performed and all other systems are negative Past Medical History Past Medical History: No Reported History Additional Past Medical History / Comment(s): colitis History of Any Multi-Drug Resistant Organisms: None Reported Past Surgical History: No Surgical Hx Reported Past Psychological History: Anxiety, Bipolar, Depression Smoking Status: Never smoker Past Alcohol Use History: None Reported Past Drug Use History: None Reported Medications and Allergies Home Medications Medication Instructions Recorded Confirmed Type Acetaminophen Tab [Tylenol] 650 mg PO Q6HR PRN tab 02/06/25 03/13/25 Rx Mesalamine [Lialda] 4.8 gm PO HS@2100 03/13/25 03/13/25 History predniSONE See Taper PO DAILY 03/13/25 03/13/25 History Allergies Allergy/AdvReac Type Severity Reaction Status Date / Time No Known Allergies Allergy Verified 03/13/25 18:36 Physical Exam Vitals: Vital Signs Temp Pulse Pulse Pulse Resp BP BP 03/14/25 08:05 99.4 F 124 H 16 87/56 03/14/25 04:00 99.6 F 116 H 19 88/54 03/14/25 01:57 94/55 03/14/25 01:00 80/47 03/14/25 00:30 74/49 03/14/25 00:00 100.2 F H 125 H 19 89/61 03/13/25 23:30 83/48 03/13/25 23:00 86/55 03/13/25 22:45 85/52 03/13/25 22:19 82/50 03/13/25 22:05 99.2 F 19 83/59 03/13/25 21:00 98.6 F 102 H 16 90/46 03/13/25 20:00 98.6 F 93 16 91/50 03/13/25 19:00 103 H 14 90/53 03/13/25 18:00 104 H 19 91/49 03/13/25 17:00 98.9 F 112 H 18 96/54 03/13/25 15:55 135 H 19 95/57 03/13/25 15:38 99.4 F 153 H 20 113/65 Pulse Ox 03/14/25 08:05 94 L 03/14/25 04:00 96 03/14/25 01:57 03/14/25 01:00 03/14/25 00:30 03/14/25 00:00 98 03/13/25 23:30 03/13/25 23:00 03/13/25 22:45 03/13/25 22:19 03/13/25 22:05 96 03/13/25 21:00 97 03/13/25 20:00 93 L 03/13/25 19:00 94 L 03/13/25 18:00 96 03/13/25 17:00 94 L 03/13/25 15:55 99 03/13/25 15:38 100 Intake and Output 03/13/25 03/14/25 03/14/25 22:59 06:59 14:59 Intake Total 150 1000 118 Output Total 6 Balance 150 994 118 Intake: Intake, IV Titration 150 1000 Amount Lactated Ringers 1,000 ml 150 1000 @ 150 mls/hr IV .Q6H40M [facility] Rx#:[id number] Oral 118 Output: Stool 6 Other: Voiding Method Urinal Urinal # Voids 1 2 Weight 140.614 kg 98.2 kg 144.6 kg GENERAL DESCRIPTION: Young male lying in bed, no distress. No tachypnea or accessory muscle of respiration use. HEENT: Shows Pallor , no scleral icterus. Oral mucous membrane is dry. NECK: Trachea central, no thyromegaly. LUNGS: Unlabored breathing. Clear to auscultation anteriorly. No wheeze or crackle. HEART: S1, S2, regular rate and rhythm. No loud murmur ABDOMEN: Soft, no tenderness , EXTREMITIES: No edema of feet. SKIN: No rash, no masses palpable. NEUROLOGICAL: The patient is awake, alert, oriented x3, mood and affect normal. Results CBC & Chem 7: 03/15/25 05:24 03/15/25 05:24 Labs: Abnormal Lab Results - Last 24 Hours (Table) 03/13/25 03/13/25 03/13/25 Range/Units 16:22 16:22 16:22 RBC (4.40-5.60) 10*6/uL Hgb 12.6 L (13.0-17.0) g/dL Hct 39.1 L (39.6-50.0) % MCV 77.0 L (80.0-97.0) fL MCH 24.8 L (27.0-32.0) pg MCHC (32.0-37.0) g/dL Immature Gran # 0.09 H (0.00-0.04) 10*3/uL Monocytes # (Manual) (0-1.0) k/uL PT 14.0 H (10.0-12.5) sec INR 1.3 H (<1.2) D-Dimer (<0.60) mg/L FEU Sodium 134 L (137-145) mmol/L Chloride 97 L (98-107) mmol/L Carbon Dioxide (22-30) mmol/L Glucose 123 H (74-99) mg/dL Plasma Lactic Acid Dain (0.7-2.0) mmol/L Calcium (8.4-10.2) mg/dL Troponin I (0.000-0.034) ng/mL C-Reactive Protein 33.2 H (<1.0) mg/dL Total Protein (6.3-8.2) g/dL Albumin (3.5-5.0) g/dL Ur Specific [place] (1.001-1.035) Urine Protein (Negative) Urine Ketones (Negative) Urine Blood (Negative) Ur Leukocyte Esterase (Negative) Urine RBC (0-5) /hpf Urine WBC (0-5) /hpf Urine Mucus (None) /hpf 03/13/25 03/13/25 03/13/25 Range/Units 16:22 16:22 16:22 RBC (4.40-5.60) 10*6/uL Hgb (13.0-17.0) g/dL Hct (39.6-50.0) % MCV (80.0-97.0) fL MCH (27.0-32.0) pg MCHC (32.0-37.0) g/dL Immature Gran # (0.00-0.04) 10*3/uL Monocytes # (Manual) (0-1.0) k/uL PT (10.0-12.5) sec INR (<1.2) D-Dimer 2.67 H (<0.60) mg/L FEU Sodium (137-145) mmol/L Chloride (98-107) mmol/L Carbon Dioxide (22-30) mmol/L Glucose (74-99) mg/dL Plasma Lactic Acid Dain 2.1 H* (0.7-2.0) mmol/L Calcium (8.4-10.2) mg/dL Troponin I 0.822 H* (0.000-0.034) ng/mL C-Reactive Protein (<1.0) mg/dL Total Protein (6.3-8.2) g/dL Albumin (3.5-5.0) g/dL Ur Specific [place] (1.001-1.035) Urine Protein (Negative) Urine Ketones (Negative) Urine Blood (Negative) Ur Leukocyte Esterase (Negative) Urine RBC (0-5) /hpf Urine WBC (0-5) /hpf Urine Mucus (None) /hpf 07/19/25 07/20/25 07/20/25 Range/Units 18:04 05:32 05:32 RBC 4.19 L (4.40-5.60) 10*6/uL Hgb 10.2 L (13.0-17.0) g/dL Hct 32.3 L (39.6-50.0) % MCV 77.1 L (80.0-97.0) fL MCH 24.3 L (27.0-32.0) pg MCHC 31.6 L (32.0-37.0) g/dL Immature Gran # 0.05 H (0.00-0.04) 10*3/uL Monocytes # (Manual) 2.07 H (0-1.0) k/uL PT (10.0-12.5) sec INR (<1.2) D-Dimer (<0.60) mg/L FEU Sodium 134 L (137-145) mmol/L Chloride (98-107) mmol/L Carbon Dioxide 21 L (22-30) mmol/L Glucose 131 H (74-99) mg/dL Plasma Lactic Acid Dain (0.7-2.0) mmol/L Calcium 8.2 L (8.4-10.2) mg/dL Troponin I (0.000-0.034) ng/mL C-Reactive Protein (<1.0) mg/dL Total Protein 5.2 L (6.3-8.2) g/dL Albumin 2.6 L (3.5-5.0) g/dL Ur Specific [place] 1.043 H (1.001-1.035) Urine Protein 1+ H (Negative) Urine Ketones 1+ H (Negative) Urine Blood Moderate H (Negative) Ur Leukocyte Esterase Small H (Negative) Urine RBC 24 H (0-5) /hpf Urine WBC 102 H (0-5) /hpf Urine Mucus Many H (None) /hpf Assessment and Plan (1) Fever Current Visit: Yes Status: Acute Code(s): R50.9 - FEVER, UNSPECIFIED SNOMED Code(s): 003950262 (2) Colitis Current Visit: No Status: Acute Code(s): K52.9 - NONINFECTIVE GASTROENTERITIS AND COLITIS, UNSPECIFIED SNOMED Code(s): 94985208 Plan: 1patient presented to hospital with intractable nausea and vomiting unable to get in within normal along with diarrhea he did have low-grade fever with evide nce of long segment of colitis on the CT and diarrhea concerning for infectious versus noninfectious colitis and 84 for the enteric gram-negative with likely pathogen less likely gram-positive stool for C. difficile has been negative. 2stool culture as well as stool for ova parasite has been requested. 3we will start the patient on Zosyn while waiting for the workup to be completed and discontinue vancomycin. We will follow on clinical condition and cultures to further adjust medication if needed Thank you for this consultation we will follow the patient along with you Dictation was produced using ELIKE dictation software. please excuse any grammatical, word or spelling errors. Time with Patient: Greater than 30
--- NOTE | 2025-03-14 18:45 | P.HPIM ---
History of Present Illness H&P Date: 03/14/25 Chief Complaint: Nausea vomiting diarrhea Very pleasant 25-year-old patient, follows with Ana Paula Nam. Patient was recently in the hospital from February 03 through February 06. Patient did present with 3 months of GI symptoms. With up to 10 bowel movements a day. Bloody stools. Abdominal pain. Fever. February 05: Colonoscopy by Dr. Samreen Antunez showed evidence of ulcerative colitis. Received IV Solu-Medrol and will be discharged on prednisone. Patient's symptoms are greatly improved. Completed his prednisone taper. He was started on mesalamine. On Saturday as well as 5 days ago patient started off with fevers. Nausea vomiting. Since then not able to keep anything down. Patient at baseline is down to 4-5 bowel movements a day. Last 4 to 5 days started having 8-10 bowel movements a day. Has some baseline abdominal pain but pain became much more prominent. Also developed a headache and bodyaches initially. ER physician felt the patient may have a UTI and gave the patient dose of IV Zosyn also gave vancomycin and was started on same. IV fluids. Today patient is feeling slightly better though very tired. Still having diarrhea. No chest pain no shortness of breath. Denies any urinary symptoms. Patient had gone back to work. Review of systems: GEN.: Tired, febrile EYES: None HEENT: None NECK: None RESPIRATORY: None CARDIOVASCULAR: None GASTROINTESTINAL: As above including nausea vomiting GENITOURINARY: None MUSCULOSKELETAL: None LYMPHATICS: None HEMATOLOGICAL: None PSYCHIATRY: Tired NEUROLOGICAL: None Social history: Lives with his brother. Works in the [employer] section at [employer]. Denies any smoking alcohol recreational drugs. Physical examination: VITAL SIGNS: Tmax 100.1, heart rate 135 on presentation, 19, 95/57, 99% room air yesterday GENERAL: BMI 44.5, lying in bed tired EYES: Pupils equal. Conjunctiva huber l. HEENT: External appearance of nose and ears normal, oral cavity grossly normal. NECK: JVD not raised; masses not palpable. HEART: First and second heart sounds are normal; no edema. LUNGS: Respiratory rate normal; clear to auscultation. ABDOMEN: Soft, some abdominal tenderness, no guarding rigidity r, liver spleen not palpable, no masses palpable. PSYCH: Rather tired but able to answer questions MUSCULOSKELETAL:No Clubbing/cyanosis;muscles-grossly intact NEUROLOGICAL: Cranial nerves grossly intact; no facial asymmetry, power and sensation grossly intact. LYMPHATICS: No lymph nodes palpable in the axilla and neck INVESTIGATIONS, reviewed in the clinical context: March 14, 2025: White count 8.9 hemoglobin 10.2 platelets 365 sodium 134 potassium 3.5 creatinine 1.06 UA: Ketones 1+ blood moderate leukoesterase small WBC 102 RBC 24 C. difficile: Negative EKG tracing personally reviewed by me-normal sinus rhythm. Nonspecific T wave changes Chest x-ray film personally reviewed by me-unremarkable CT abdomen pelvis: Persistent stooland long segment wall thickening of the transverse descending and sigmoid colon with mild adjacent eccentric infla mmatory changes. Suggestive of inflammatory colitis.. Assessment plan: - Acute flare of ulcerative colitis. At baseline patient says 4-5 bowel movements a day. Some pain of the baseline. For last 4 to 5 days about 8-10 bowel movements a day. Increase in abdominal pain. Decreased appetite. Some fever. This seems to be precipitated by probably a systemic viral infection. Initially patient headache body aches stiffness. Patient does have a colonoscopy on February [address] Samreen Antunez. Findings are compatible with ulcerative colitis. Also the biopsy results. Patient started outpatient, with mesalamine. Had not started the dose. Patient just finished a course of steroid taper. IV Solu-Medrol 40 every 8. Will switch to 20 mg Q8 from tomorrow. Full liquid diet. - Sepsis from above IV fluids at the rate of 150 cc an hour - Possible underlying viral illness. Cannot rule out bacterial disease Check procalcitonin. Check Cepheid ID consulted. - Morbid obesity BMI 44.5 Weight loss measures - normocytic anemia from blood loss anemia from GI bleed from ulcerative colitis in the last 3 months. - Lactic acidosis from sepsis - Troponinemia could be from underlying viral condition. Could be an element of myocarditis 2D echo. Cardiology consulted. - Hypoalbuminemia, reactive - Clinical dehydration IV fluids Discussed with the patient and mother at the bedside. Past Medical History Past Medical History: No Reported History Additional Past Medical History / Comment(s): colitis History of Any Multi-Drug Resistant Organisms: None Reported Past Surgical History: No Surgical Hx Reported Past Psychological History: Anxiety, Bipolar, Depression Smoking Status: Never smoker Past Alcohol Use History: None Reported Past Drug Use History: None Reported Medications and Allergies Home Medications Medication Instructions Recorded Confirmed Type Acetaminophen Tab [Tylenol] 650 mg PO Q6HR PRN tab 02/06/25 03/13/25 Rx Mesalamine [Lialda] 4.8 gm PO HS@2100 03/13/25 03/13/25 History predniSONE See Taper PO DAILY 03/13/25 03/13/25 History Allergies Allergy/AdvReac Type Severity Reaction Status Date / Time No Known Allergies Allergy Verified 03/13/25 18:36 Physical Exam Vitals: Vital Signs Temp Pulse Pulse Pulse Resp BP BP 03/14/25 16:00 115 H 16 84/53 03/14/25 12:00 100.1 F H 115 H 18 100/71 03/14/25 08:05 99.4 F 124 H 16 87/56 03/14/25 04:00 99.6 F 116 H 19 88/54 03/14/25 01:57 94/55 03/14/25 01:00 80/47 03/14/25 00:30 74/49 03/14/25 00:00 100.2 F H 125 H 19 89/61 03/13/25 23:30 83/48 03/13/25 23:00 86/55 03/13/25 22:45 85/52 03/13/25 22:19 82/50 03/13/25 22:05 99.2 F 19 83/59 03/13/25 21:00 98.6 F 102 H 16 90/46 03/13/25 20:00 98.6 F 93 16 91/50 03/13/25 19:00 103 H 14 90/53 Pulse Ox 03/14/25 16:00 94 L 03/14/25 12:00 93 L 03/14/25 08:05 94 L 03/14/25 04:00 96 03/14/25 01:57 03/14/25 01:00 03/14/25 00:30 03/14/25 00:00 98 03/13/25 23:30 03/13/25 23:00 03/13/25 22:45 03/13/25 22:19 03/13/25 22:05 96 03/13/25 21:00 97 03/13/25 20:00 93 L 03/13/25 19:00 94 L Intake and Output 03/14/25 03/14/25 03/14/25 06:59 14:59 22:59 Intake Total 1000 118 480 Output Total 6 Balance 994 118 480 Intake: Intake, IV Titration 1000 Amount Lactated Ringers 1,000 ml 1000 @ 150 mls/hr IV .Q6H40M [facility] Rx#:[id number] Oral 118 480 Output: Stool 6 Other: Voiding Method Urinal Urinal # Voids 2 4 # Bowel Movements 4 Weight 98.2 kg 144.6 kg Results CBC & Chem 7: 03/14/25 05:32 03/14/25 05:32 Labs: Abnormal Lab Results - Last 24 Hours (Table) 03/13/25 03/14/25 03/14/25 Range/Units 16:22 05:32 05:32 RBC 4.19 L (4.40-5.60) 10*6/uL Hgb 10.2 L (13.0-17.0) g/dL Hct 32.3 L (39.6-50.0) % MCV 77.1 L (80.0-97.0) fL MCH 24.3 L (27.0-32.0) pg MCHC 31.6 L (32.0-37.0) g/dL Immature Gran # 0.05 H (0.00-0.04) 10*3/uL Monocytes # (Manual) 2.07 H (0-1.0) k/uL D-Dimer 2.67 H (<0.60) mg/L FEU Sodium 134 L (137-145) mmol/L Carbon Dioxide 21 L (22-30) mmol/L Glucose 131 H (74-99) mg/dL Calcium 8.2 L (8.4-10.2) mg/dL Total Protein 5.2 L (6.3-8.2) g/dL Albumin 2.6 L (3.5-5.0) g/dL Thrombosis Risk Factor Assmnt - Choose All That Apply Each Factor Represents 1 point: Obesity (BMI >25), Sepsis (< 1month) Other Risk Factors: No Thrombosis Risk Factor Assessment Total Risk Factor Score: 2 Thrombosis Risk Factor Assessment Level: Low Risk
[2025-03-14 19:07] LABS: Glucose,Whole Blood 138 mg/dL (70-110)
[2025-03-15 06:25] LABS: Basophils # (A) 0.01 10*3/uL (0.00-0.10); Basophils % (A) 0.2 %; Eosinophils # (A) 0.00 10*3/uL (0.04-0.35); Eosinophils % (A) 0.0 %; HCT 29.6 % (39.6-50.0); HGB 9.5 g/dL (13.0-17.0); Lymphocytes # (A) 0.59 10*3/uL (0.90-5.00); Lymphocytes % (A) 10.9 %; MCH 25.0 pg (27.0-32.0); MCHC 32.1 g/dL (32.0-37.0); MCV 77.9 fL (80.0-97.0); Monocytes # (A) 0.40 10*3/uL (0.20-1.00); Monocytes % (A) 7.4 %; Neutrophils # (A) 4.37 10*3/uL (1.80-7.70); Neutrophils % (A) 80.9 %; Platelet Count 335 10*3/uL (140-440); RBC 3.80 10*6/uL (4.40-5.60); RDW 13.9 % (11.5-14.5); WBC 5.40 10*3/uL (4.50-10.00)
[2025-03-15 06:47] LABS: ALT 21 U/L (4-49); AST 28 U/L (17-59); African American GFR (CKD) >90 (>60 ml/min/1.73 sqM); Albumin 2.7 g/dL (3.5-5.0); Alkaline Phosphatase 56 U/L (38-126); Anion Gap 11 mmol/L; Blood Urea Nitrogen 10 mg/dL (9-20); Calcium 8.5 mg/dL (8.4-10.2); Carbon Dioxide 22 mmol/L (22-30); Chloride 104 mmol/L (98-107); Glucose 135 mg/dL (74-99); Non-African American GFR(CKD) >90 (>60 ml/min/1.73 sqM); Potassium 3.6 mmol/L (3.5-5.1); Sodium 137 mmol/L (137-145); Total Protein 5.4 g/dL (6.3-8.2)
[2025-03-15 06:50] LABS: NT-Pro-B-Type Natriuretic Pept 6380 pg/mL
[2025-03-15] MEDS: methylPREDNISolone SOD SUCCI 40 MG/ML 1 ML VIAL IV SCH (09:11)
--- NOTE | 2025-03-15 14:20 | P.PN ---
Subjective This is a 25-year-old male with a past medical history significant for bradycardia, ulcerative colitis, and obesity. Patient follows in the office with Dr. Shen. We have been asked to see the patient in consultation for elevated troponins. Patient examined at the bedside. Patient states he developed a fever on Saturday. He states on he began to have nausea and then developed vomiting. Additionally he reports having diarrhea for the past few days. He also reports having some burning with urination over the past couple days. He does have a history of ulcerative colitis and is on immunosuppressive therapy. Patient presented to the hospital for further evaluation. Patient was found to be hypotensive with a blood pressure in the 80s. Additionally he was tachycardic in the 150s. Patient denies any chest pain or shortness of breath. He does report having some blood in his stool recently. He does report also having some blood in his urine. DIAGNOSTICS: - EKG reveals sinus tachycardia with a heart rate of 134. No signs of acute ischemia. - Chest xray negative for acute process. - Chest CTA: Negative for pulmonary embolism - CT abdomen pelvis: Liquid stool suggesting diarrhea and long segment wall thickening of the colon suggestive of infectious or inflammatory colitis. - Laboratory data: WBC 8.99. Hemoglobin 10.2. Platelet count 365. D-dimer 2.67. Sodium 134. Potassium 3.5. Lactic acid 2.1. Troponin 0.822. proBNP 10,200 - Current home cardiac medication include: None - No previous echocardiogram, stress test, or cardiac catheterization available in EMR for review 03/15 Patient seen and examined. Patient denies any chest pain or pressure. No significant shortness of breath. States he feels mildly improved compared to yesterday. Echocardiogram performed approximately half hour ago however results not available yet. PHYSICAL EXAM: VITAL SIGNS: Reviewed. GENERAL: Well-developed in no acute distress. HEENT: Head is normocephalic. Pupils are equal, round. Sclerae anicteric. Mucous membranes of the mouth are moist. Neck supple. No JVD or thyromegaly LUNGS: Respirations even and unlabored. Lungs essentially clear to auscultation bilaterally. HEART: Tachycardic. Regular rate and rhythm. S1 and S2 heard. ABDOMEN: Soft. Nondistended. Nontender. EXTREMITIES: Normal range of motion. No clubbing or cyanosis. Peripheral pulses intact. No lower extremity edema NEUROLOGIC: Awake and alert. Oriented x 3. ASSESSMENT: Sepsis Urinary tract infection Ulcerative colitis Elevated troponin, type II ME secondary to sepsis, no evidence of acute coronary syndrome Elevated proBNP of unclear clinical significance History of bradycardia secondary to vasovagal Morbid obesity: BMI 44.5 PLAN: Appears mainly type II mechanism related to sepsis. Check repeat troponin for completeness sake. Await 2D echo. Continue with current regimen. Objective - Vital Signs Vital signs: Vital Signs Temp 98.4 F 03/15/25 08:00 Pulse 89 03/15/25 12:00 Resp 16 03/15/25 08:00 BP 92/67 03/15/25 12:00 Pulse Ox 93 L 03/15/25 12:00 FiO2 Intake & Output 03/14/25 03/15/25 03/15/25 18:59 06:59 18:59 Intake Total 598 455 Balance 598 455 Weight 144.6 kg 145.2 kg Intake: Intake, IV Titration 100 Amount Piperacillin-Tazobactam 3 100 .375 gm In Sodium Chloride 0.9% 100 ml @ 25 mls/hr IVPB Q8HR [facility] Rx# :[id number] Oral 598 [id number] Other: Voiding Method Urinal Urinal Urinal # Voids 4 2 1 # Bowel Movements 4 - Labs CBC & Chem 7: 03/15/25 05:24 03/15/25 05:24 Labs: Abnormal Lab Results - Last 24 Hours (Table) 03/14/25 03/15/25 03/15/25 Range/Units 19:06 05:24 05:24 RBC 3.80 L (4.40-5.60) 10*6/uL Hgb 9.5 L (13.0-17.0) g/dL Hct 29.6 L (39.6-50.0) % MCV 77.9 L (80.0-97.0) fL MCH 25.0 L (27.0-32.0) pg Lymphocytes # 0.59 L (0.90-5.00) 10*3/uL Eosinophils # 0.00 L (0.04-0.35) 10*3/uL Glucose 135 H (74-99) mg/dL POC Glucose (mg/dL) 138 H (70-110) mg/dL Total Protein 5.4 L (6.3-8.2) g/dL Albumin 2.7 L (3.5-5.0) g/dL Microbiology - Last 24 Hours (Table) 03/13/25 16:22 Blood Culture - Preliminary Blood
--- NOTE | 2025-03-15 20:51 | P.PN ---
Subjective Progress Note Date: 03/15/25 Very pleasant 25-year-old patient, follows with Ana Paula Nam. Patient was recently in the hospital from February 03 through February 06. Patient did present with 3 months of GI symptoms. With up to 10 bowel movements a day. Bloody stools. Abdominal pain. Fever. February 05: Colonoscopy by Dr. Samreen Antunez showed evidence of ulcerative colitis. Received IV Solu-Medrol and will be discharged on prednisone. Patient's symptoms are greatly improved. Completed his prednisone taper. He was started on mesalamine. On Saturday as well as 5 days ago patient started off with fevers. Nausea vomiting. Since then not able to keep anything down. Patient at baseline is down to 4-5 bowel movements a day. Last 4 to 5 days started having 8-10 bowel movements a day. Has some baseline abdominal pain but pain became much more prominent. Also developed a headache and bodyaches initially. ER physician felt the patient may have a UTI and gave the patient dose of IV Zosyn also gave vancomycin and was started on same. IV fluids. Today patient is feeling slightly better though very tired. Still having diarrhea. No chest pain no shortness of breath. Denies any urinary symptoms. Patient had gone back to work. 03/15/2025 Patient is able to ambulate to the bathroom. Denied any complaints of chest pain or shortness of breath on room air. No complaints of fever or chills. No cough or sputum production. Patient is antibiotics and follow Zosyn. Continued on IV hydration with Ringer's lactate reduced to 100 cc/h. Laboratory data showed WBC 5.4 hemoglobin 9.5 and platelets 335 and MCV 77.9. C. difficile negative. Potassium 3.6 BUN 11 creatinine 0.89 and blood sugar 135. proBNP 6380. Troponin 0.822 and 0.181. Cardiology and ID is on board. Review of systems: GEN.: Tired, febrile EYES: None HEENT: None NECK: None RESPIRATORY: None CARDIOVASCULAR: None GASTROINTESTINAL: As above including nausea vomiting GENITOURINARY: None MUSCULOSKELETAL: None LYMPHATICS: None HEMATOLOGICAL: None PSYCHIATRY: Tired NEUROLOGICAL: None Social history: Lives with his brother. 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 Denies any smoking alcohol recreational drugs. Physical examination: VITAL SIGNS: Tmax 100.1, heart rate 135 on presentation, 19, 95/57, 99% room air yesterday GENERAL: BMI 44.5, lying in bed tired EYES: Pupils equal. Conjunctiva huber l. HEENT: External appearance of nose and ears normal, oral cavity grossly normal. NECK: JVD not raised; masses not palpable. HEART: First and second heart sounds are normal; no edema. LUNGS: Respiratory rate normal; clear to auscultation. ABDOMEN: Soft, some abdominal tenderness, no guarding rigidity r, liver spleen not palpable, no masses palpable. PSYCH: Rather tired but able to answer questions MUSCULOSKELETAL:No Clubbing/cyanosis;muscles-grossly intact NEUROLOGICAL: Cranial nerves grossly intact; no facial asymmetry, power and sensation grossly intact. LYMPHATICS: No lymph nodes palpable in the axilla and neck INVESTIGATIONS, reviewed in the clinical context: March 14, 2025: White count 8.9 hemoglobin 10.2 platelets 365 sodium 134 p otassium 3.5 creatinine 1.06 UA: Ketones 1+ blood moderate leukoesterase small WBC 102 RBC 24 C. difficile: Negative EKG tracing personally reviewed by me-normal sinus rhythm. Nonspecific T wave changes Chest x-ray film personally reviewed by me-unremarkable CT abdomen pelvis: Persistent stooland long segment wall thickening of the transverse descending and sigmoid colon with mild adjacent eccentric inflammatory changes. Suggestive of inflammatory colitis.. Assessment plan: - Acute flare of ulcerative colitis. CT of the abdomen pelvis showed thickening of distal transverse descending and s igmoid colon and inflammatory changes suggestive of inflammatory colitis. At baseline patient says 4-5 bowel movements a day. Some pain of the baseline. For last 4 to 5 days about 8-10 bowel movements a day. Increase in abdominal pain. Decreased appetite. Some fever. This seems to be precipitated by probably a systemic viral infection. Initially patient headache body aches stiffness. Patient does have a colonoscopy on February [address] Samreen Antunez. Findings are compatible with ulcerative colitis. Also the biopsy results. Patient started outpatient, with mesalamine. Had not started the dose. Patient just finished a course of steroid taper. IV Solu-Medrol 40 every 8. Will switch to 20 mg Q8 from tomorrow. Full liquid diet and advance as tolerated. Continue lung IV antibiotics in the form of Zosyn.. - Sepsis from above IV fluids at the rate of 150 cc an hour Procalcitonin 0.26. Influenza, COVID and RSV PCR not detected. ID is on board. Elevated troponin level likely t type II demand ischemia due to sepsis Could be an element of myocarditis Troponin trending down. 2D echo was ordered. Cardiology on board. - Morbid obesity BMI 44.5 Weight loss measures - normocytic anemia from blood loss anemia from GI bleed from ulcerative colitis in the last 3 months. - Lactic acidosis from sepsis. Improved. - Hypoalbuminemia, reactive - Clinical dehydration IV fluids Discussed with the patient and mother at the bedside. Objective - Vital Signs Vital signs: Vital Signs Temp 98.4 F 03/15/25 08:00 Pulse 89 03/15/25 16:00 Resp 16 03/15/25 20:43 BP 87/62 03/15/25 16:00 Pulse Ox 98 03/15/25 16:00 FiO2 Intake & Output 03/15/25 03/15/25 03/16/25 06:59 18:59 06:59 Intake Total 455 Balance 455 Weight 145.2 kg Intake: Intake, IV Titration 100 Amount Piperacillin-Tazobactam 3 100 .375 gm In Sodium Chloride 0.9% 100 ml @ 25 mls/hr IVPB Q8HR [facility] Rx# :[id number] Oral 355 Other: Voiding Method Urinal Urinal Urinal # Voids 2 1 2 - Labs CBC & Chem 7: 03/15/25 05:24 03/15/25 05:24 Labs: Abnormal Lab Results - Last 24 Hours (Table) 03/15/25 03/15/25 03/15/25 Range/Units 05:24 05:24 14:25 RBC 3.80 L (4.40-5.60) 10*6/uL Hgb 9.5 L (13.0-17.0) g/dL Hct 29.6 L (39.6-50.0) % MCV 77.9 L (80.0-97.0) fL MCH 25.0 L (27.0-32.0) pg Lymphocytes # 0.59 L (0.90-5.00) 10*3/uL Eosinophils # 0.00 L (0.04-0.35) 10*3/uL Glucose 135 H (74-99) mg/dL Troponin I 0.181 H* (0.000-0.034) ng/mL Total Protein 5.4 L (6.3-8.2) g/dL Albumin 2.7 L (3.5-5.0) g/dL Microbiology - Last 24 Hours (Table) 03/13/25 16:22 Blood Culture - Preliminary Blood
--- NOTE | 2025-03-15 21:59 | P.PN ---
Subjective Progress Note Date: 03/15/25 Principal diagnosis: Reason for follow-up is fever leukocytosis/colitis Patient is a 25-year-old male past medical history significant for anxiety depression bipolar history of ulcerative colitis for the patient has been on prednisone and mesalamine presenting to the ER concerning for nausea and vomiting unable to keep anything down did have a fever elevated white count prompted this consultation. On today's evaluation that is 03/15/2025, patient did have resolution of his fever and has been afebrile this morning, patient is breathing comfortably and is currently on room air, patient denies having any chest pain and cough, patient did have resolution of nausea no further vomiting abdominal pain slightly decreasing diarrhea slightly slowing down. Patient white count is 5.40 creatinine 0.89 stool studies that his cultures are pending C. difficile was negative Objective - Vital Signs Vital signs: Vital Signs Temp 98.4 F 03/15/25 08:00 Pulse 100 03/15/25 08:00 Resp 16 03/15/25 08:00 BP 95/69 03/15/25 08:00 Pulse Ox 96 03/15/25 08:00 FiO2 Intake & Output 03/14/25 03/15/25 03/15/25 18:59 06:59 18:59 Intake Total 598 237 Balance 598 237 Weight 144.6 kg 145.2 kg Intake: Oral 598 237 Other: Voiding Method Urinal Urinal Urinal # Voids 4 2 # Bowel Movements 4 - Exam GENERAL DESCRIPTION: Middle-age male lying in bed in no distress RESPIRATORY SYSTEM: Unlabored breathing , decreased breath sounds at bases HEART: S1 S2 regular rate and rhythm , ABDOMEN: Soft , no tenderness EXTREMITIES: No edema feet - Labs CBC & Chem 7: 03/15/25 05:24 03/15/25 05:24 Labs: Abnormal Lab Results - Last 24 Hours (Table) 03/14/25 03/15/25 03/15/25 Range/Units 19:06 05:24 05:24 RBC 3.80 L (4.40-5.60) 10*6/uL Hgb 9.5 L (13.0-17.0) g/dL Hct 29.6 L (39.6-50.0) % MCV 77.9 L (80.0-97.0) fL MCH 25.0 L (27.0-32.0) pg Lymphocytes # 0.59 L (0.90-5.00) 10*3/uL Eosinophils # 0.00 L (0.04-0.35) 10*3/uL Glucose 135 H (74-99) mg/dL POC Glucose (mg/dL) 138 H (70-110) mg/dL Total Protein 5.4 L (6.3-8.2) g/dL Albumin 2.7 L (3.5-5.0) g/dL Microbiology - Last 24 Hours (Table) 03/13/25 16:22 Blood Culture - Preliminary Blood Assessment and Plan (1) Fever Current Visit: Yes Status: Acute Code(s): R50.9 - FEVER, UNSPECIFIED SNOMED Code(s): 592663648 (2) Colitis Current Visit: No Status: Acute Code(s): K52.9 - NONINFECTIVE GASTROENTERITIS AND COLITIS, UNSPECIFIED SNOMED Code(s): 26046429 Plan: 1patient presented to hospital with intractable nausea and vomiting unable to get in within normal along with diarrhea he did have low-grade fever with evidence of long segment of colitis on the CT and diarrhea concerning for infectious versus noninfectious colitis and 84 for the enteric gram-negative with likely pathogen less likely gram-positive stool for C. difficile has been negative. 2stool culture as well as stool for ova parasite currently pending 3patient did have resolution of his fever white count is trending down we will treat the patient with Zosyn while waiting for the workup to be completed Dictation was produced using [email or web address] dictation software. please excuse any grammatical, word or spelling errors.
[2025-03-16 06:39] LABS: Basophils # (A) 0.01 10*3/uL (0.00-0.10); Basophils % (A) 0.1 %; Eosinophils # (A) 0.00 10*3/uL (0.04-0.35); Eosinophils % (A) 0.0 %; HCT 26.3 % (39.6-50.0); HGB 8.4 g/dL (13.0-17.0); Lymphocytes # (A) 0.71 10*3/uL (0.90-5.00); Lymphocytes % (A) 9.6 %; MCH 24.9 pg (27.0-32.0); MCHC 31.9 g/dL (32.0-37.0); MCV 77.8 fL (80.0-97.0); Monocytes # (A) 0.58 10*3/uL (0.20-1.00); Monocytes % (A) 7.8 %; Neutrophils # (A) 6.07 10*3/uL (1.80-7.70); Neutrophils % (A) 82.0 %; Platelet Count 316 10*3/uL (140-440); RBC 3.38 10*6/uL (4.40-5.60); RDW 13.9 % (11.5-14.5); WBC 7.41 10*3/uL (4.50-10.00)
[2025-03-16 06:56] LABS: Carbon Dioxide 25 mmol/L (22-30); Chloride 101 mmol/L (98-107); Glucose 128 mg/dL (74-99); Potassium 3.8 mmol/L (3.5-5.1); Sodium 135 mmol/L (137-145)
[2025-03-16 06:57] LABS: African American GFR (CKD) >90 (>60 ml/min/1.73 sqM); Anion Gap 9 mmol/L; Blood Urea Nitrogen 11 mg/dL (9-20); Calcium 8.9 mg/dL (8.4-10.2); Non-African American GFR(CKD) >90 (>60 ml/min/1.73 sqM)
--- NOTE | 2025-03-16 09:36 | P.PN ---
Subjective This is a 25-year-old male with a past medical history significant for bradycardia, ulcerative colitis, and obesity. Patient follows in the office with Dr. Shen. We have been asked to see the patient in consultation for elevated troponins. Patient examined at the bedside. Patient states he developed a fever on Saturday. He states on he began to have nausea and then developed vomiting. Additionally he reports having diarrhea for the past few days. He also reports having some burning with urination over the past couple days. He d oes have a history of ulcerative colitis and is on immunosuppressive therapy. Patient presented to the hospital for further evaluation. Patient was found to be hypotensive with a blood pressure in the 80s. Additionally he was tachycardic in the 150s. Patient denies any chest pain or shortness of breath. He does report having some blood in his stool recently. He does report also having some blood in his urine. DIAGNOSTICS: - EKG reveals sinus tachycardia with a heart rate of 134. No signs of acute ischemia. - Chest xray negative for acute process. - Chest CTA: Negative for pulmonary embolism - CT abdomen pelvis: Liquid stool suggesting diarrhea and long segment wall thickening of the colon suggestive of infectious or inflammatory colitis. - Laboratory data: WBC 8.99. Hemoglobin 10.2. Platelet count 365. D-dimer 2.67. Sodium 134. Potassium 3.5. Lactic acid 2.1. Troponin 0.822. proBNP 10,200 - Current home cardiac medication include: None - No previous echocardiogram, stress test, or cardiac catheterization available in EMR for review 03/15 Patient seen and examined. Patient denies any chest pain or pressure. No significant shortness of breath. States he feels mildly improved compared to yesterday. Echocardiogram performed approximately half hour ago however results not available yet. 03/16 Patient seen and examined. Patient denies any chest pain or pressure. Repeat troponin stable and had decreased. Echocardiogram performed with ejection fraction 50 to 55% without significant valvular disease. PHYSICAL EXAM: VITAL SIGNS: Reviewed. GENERAL: Well-developed in no acute distress. HEENT: Head is normocephalic. Pupils are equal, round. Sclerae anicteric. Mucous membranes of the mouth are moist. Neck supple. No JVD or thyromegaly LUNGS: Respirations even and unlabored. Lungs essentially clear to auscultation bilaterally. HEART: Tachycardic. Regular rate and rhythm. S1 and S2 heard. ABDOMEN: Soft. Nondistended. Nontender. EXTREMITIES: Normal range of motion. No clubbing or cyanosis. Peripheral pulses intact. No lower extremity edema NEUROLOGIC: Awake and alert. Oriented x 3. ASSESSMENT: Sepsis Urinary tract infection Ulcerative colitis Elevated troponin, type II PA secondary to sepsis, no evidence of acute coronary syndrome Elevated proBNP History of bradycardia secondary to vasovagal Morbid obesity: BMI 44.5 PLAN: Appears mainly type II mechanism related to sepsis. Echo showing preserved EF without significant valvular disease. No further workup from cardiology standpoint as an inpatient. Patient stable for discharge home from a cardiology standpoint. Objective - Vital Signs Vital signs: Vital Signs Temp 98.4 F 03/15/25 23:43 Pulse 66 03/16/25 03:36 Resp 17 03/16/25 03:36 BP 98/64 03/16/25 03:36 Pulse Ox 98 03/16/25 03:36 FiO2 Intake & Output 03/15/25 03/16/25 03/16/25 18:59 06:59 18:59 Intake Total 455 240 Balance 455 240 Weight 146.4 kg Intake: Intake, IV Titration 100 Amount Piperacillin-Tazobactam 3 100 .375 gm In Sodium Chloride 0.9% 100 ml @ 25 mls/hr IVPB Q8HR [facility] Rx# :[id number] Oral 355 240 Other: Voiding Method Urinal Urinal # Voids 1 2 - Labs CBC & Chem 7: 03/16/25 05:39 03/16/25 05:39 Labs: Abnormal Lab Results - Last 24 Hours (Table) 03/15/25 03/16/25 03/16/25 Range/Units 14:25 05:39 05:39 RBC 3.38 L (4.40-5.60) 10*6/uL Hgb 8.4 L (13.0-17.0) g/dL Hct 26.3 L (39.6-50.0) % MCV 77.8 L (80.0-97.0) fL MCH 24.9 L (27.0-32.0) pg MCHC 31.9 L (32.0-37.0) g/dL Lymphocytes # 0.71 L (0.90-5.00) 10*3/uL Eosinophils # 0.00 L (0.04-0.35) 10*3/uL Sodium 135 L (137-145) mmol/L Glucose 128 H (74-99) mg/dL Troponin I 0.181 H* (0.000-0.034) ng/mL Microbiology - Last 24 Hours (Table) 03/13/25 16:22 Blood Culture - Preliminary Blood
--- NOTE | 2025-03-16 15:00 | P.PN ---
Subjective Progress Note Date: 03/16/25 Principal diagnosis: Reason for follow-up is fever leukocytosis/colitis Patient is a 25-year-old male past medical history significant for anxiety depression bipolar history of ulcerative colitis for the patient has been on prednisone and mesalamine presenting to the ER concerning for nausea and vomiting unable to keep anything down did have a fever elevated white count prompted this consultation. On today's evaluation that is 03/16/2025, Patient is afebrile this morning patient denies having any chest pain shortness of breath or cough, the patient is currently on room air, patient denies any abdominal pain no further vomiting and diarrhea has slowed down. Patient white count 7.41, creatinine 0.79 stool culture currently pending blood cultures pending Objective - Vital Signs Vital signs: Vital Signs Temp 98.2 F 03/16/25 08:00 Pulse 84 03/16/25 08:00 Resp 16 03/16/25 08:00 BP 94/64 03/16/25 08:00 Pulse Ox 96 03/16/25 08:00 FiO2 Intake & Output 03/15/25 03/16/25 03/16/25 18:59 06:59 18:59 Intake Total 455 460 Balance 455 460 Weight 146.4 kg Intake: Intake, IV Titration 100 Amount Piperacillin-Tazobactam 3 100 .375 gm In Sodium Chloride 0.9% 100 ml @ 25 mls/hr IVPB Q8HR [facility] Rx# :[id number] Oral 355 460 Other: Voiding Method Urinal Urinal Urinal # Voids 1 2 - Exam GENERAL DESCRIPTION: Middle-age male lying in bed in no distress RESPIRATORY SYSTEM: Unlabored breathing , decreased breath sounds at bases HEART: S1 S2 regular rate and rhythm , ABDOMEN: Soft , no tenderness EXTREMITIES: No edema feet - Labs CBC & Chem 7: 03/16/25 05:39 03/16/25 05:39 Labs: Abnormal Lab Results - Last 24 Hours (Table) 03/15/25 03/16/25 03/16/25 Range/Units 14:25 05:39 05:39 RBC 3.38 L (4.40-5.60) 10*6/uL Hgb 8.4 L (13.0-17.0) g/dL Hct 26.3 L (39.6-50.0) % MCV 77.8 L (80.0-97.0) fL MCH 24.9 L (27.0-32.0) pg MCHC 31.9 L (32.0-37.0) g/dL Lymphocytes # 0.71 L (0.90-5.00) 10*3/uL Eosinophils # 0.00 L (0.04-0.35) 10*3/uL Sodium 135 L (137-145) mmol/L Glucose 128 H (74-99) mg/dL Troponin I 0.181 H* (0.000-0.034) ng/mL Microbiology - Last 24 Hours (Table) 03/14/25 11:15 Stool Culture - Preliminary Stool 03/13/25 16:22 Blood Culture - Preliminary Blood Assessment and Plan (1) Fever Current Visit: Yes Status: Acute Code(s): R50.9 - FEVER, UNSPECIFIED SNOMED Code(s): 183283617 (2) Colitis Current Visit: No Status: Acute Code(s): K52.9 - NONINFECTIVE GASTROENTERITIS AND COLITIS, UNSPECIFIED SNOMED Code(s): 89466709 Plan: 1patient presented to hospital with intractable nausea and vomiting unable to get in within normal along with diarrhea he did have low-grade fever with evidence of long segment of colitis on the CT and diarrhea concerning for infectious versus noninfectious colitis and 84 for the enteric gram-negative with likely pathogen less likely gram-positive stool for C. difficile has been negative. 2stool culture as well as stool for ova parasite currently pending 3patient did have resolution of his fever white count is trending down, stool cultures pending 4we will treat the patient with Zosyn and hopefully transition to oral antibiotics on discharge Dictation was produced using [employer] dictation software. please excuse any grammatical, word or spelling errors. Time with Patient: Less than 30
--- NOTE | 2025-03-16 21:34 | CA ---
Transthoracic Echo Report Name: Claudio Oglesby Age: 25 Gender: M : 2000 Exam Date: 03/15/2025 13:12 Exam Location: [facility] Ht (in): 71 Wt (lb): 310 Ordering Physician: Nguyễn Kelley DO Attending/Referring Phys: [id number], Warren [employer] Filling Operator Federico Brewster RDCS Procedure CPT: Indications: elevTrop, Non-ST elevation (NSTEMI) myocardial infarction Cardiac Hx: Technical Quality: Fair Contrast 1: Total Dose (mL): Contrast 2: Total Dose (mL): MEASUREMENTS (Male / Female) Normal Values 2D ECHO LV Diastolic Diameter PLAX 4.8 cm 4.2 - 5.9 / 3.9 - 5.3 cm LV Systolic Diameter PLAX 3.3 cm IVS Diastolic Thickness 1.3 cm 0.6 - 1.0 / 0.6 - 0.9 cm LVPW Diastolic Thickness 1.4 cm 0.6 - 1.0 / 0.6 - 0.9 cm LV Relative Wall Thickness 0.6 RV Internal Dim ED PLAX 2.6 cm LVOT Diameter 2.1 cm LA Systolic Diameter LX 4.0 cm 3.0 - 4.0 / 2.7 - 3.8 cm LV Diastolic Volume MOD BP 143.8 cm??? 67 - 155 / 56 - 104 cm??? LV Systolic Volume MOD BP 80.9 cm??? 22 - 58 / 19 - 49 cm??? LV Ejection Fraction MOD BP 43.7 % >= 55 % LV Cardiac Index MOD BP 1895.4 cm???/min???m??? LV Diastolic Volume MOD 4C 122.6 cm??? LV Systolic Volume MOD 4C 58.9 cm??? LV Ejection Fraction MOD 4C 52.0 % LV Cardiac Index MOD 4C 1922.5 cm???/min???m??? LV Diastolic Length 4C 8.5 cm LV Systolic Length 4C 7.1 cm LV Diastolic Volume MOD 2C 152.1 cm??? LV Systolic Volume MOD 2C 93.4 cm??? LV Ejection Fraction MOD 2C 38.6 % LV Cardiac Index MOD 2C 1769.6 cm???/min???m??? LV Diastolic Length 2C 9.5 cm LV Systolic Length 2C 8.5 cm LA Volume 89.0 cm??? 18 - 58 / 22 - 52 cm??? LA Volume Index 32.7 cm???/m??? 16 - 28 cm???/m??? M-MODE Aortic Root Diameter MM 3.6 cm LA Systolic Diameter MM 3.6 cm LA Ao Ratio MM 1.0 AV Cusp Separation MM 1.9 cm DOPPLER AV Peak Velocity 103.4 cm/s AV Peak Gradient 4.3 mmHg AV Mean Velocity 75.2 cm/s AV Mean Gradient 2.5 mmHg AV Velocity Time Integral 20.9 cm LVOT Peak Velocity 79.2 cm/s LVOT Peak Gradient 2.5 mmHg LVOT Velocity Time Integral 13.5 cm LVOT Stroke Volume 46.9 cm??? LVOT Stroke Volume Index 18.4 ml/m??? LVOT Cardiac Index 1413.1 cm???/min???m??? AV Area Cont Eq vti 2.2 cm??? AV Area Cont Eq pk 2.7 cm??? MV Peak Velocity 111.1 cm/s MV Peak Gradient 4.9 mmHg MV Mean Velocity 80.9 cm/s MV Mean Gradient 2.9 mmHg MV Velocity Time Integral 27.8 cm MR Peak Velocity 450.3 cm/s MR Peak Gradient 81.1 mmHg FINDINGS Left Ventricle Left ventricular ejection fraction is estimated at 50-55 %. Mildly increased septal wall thickness. Normal left ventricular systolic function with no obvious regional wall motion abnormalities. Left ventricular cavity size normal. Right Ventricle Normal right ventricular size and function. Right Atrium Normal right atrial size. No right atrial thrombus or mass seen. Left Atrium Mildly increased left atrial volume. No left atrial thrombus or mass present. Mitral Valve No mitral stenosis. [id number] mitral regurgitation. Aortic Valve Trileaflet aortic valve. No aortic stenosis. No aortic regurgitation. Tricuspid Valve Structurally normal tricuspid valve. No tricuspid stenosis. No tricuspid regurgitation. Pulmonic Valve Structurally normal pulmonic valve. No pulmonic stenosis. No pulmonic regurgitation. Pericardium Normal pericardium. No pericardial or pleural effusion. Aorta Normal size aortic root and proximal ascending aorta. CONCLUSIONS LVEF 50 to 55% Mild concentric LVH No obvious regional wall motion abnormality Normal RV size and systolic function Mild left atrial dilatation Mild to moderate mitral regurgitation Previewed by: Dr Iron Lizama (Electronically Signed) Final Date: 16 March 2025 21:33
[2025-03-17 08:41] LABS: African American GFR (CKD) >90 (>60 ml/min/1.73 sqM); Anion Gap 9 mmol/L; Blood Urea Nitrogen 13 mg/dL (9-20); Calcium 8.6 mg/dL (8.4-10.2); Carbon Dioxide 25 mmol/L (22-30); Chloride 104 mmol/L (98-107); Glucose 92 mg/dL (74-99); Non-African American GFR(CKD) >90 (>60 ml/min/1.73 sqM); Potassium 3.6 mmol/L (3.5-5.1); Sodium 138 mmol/L (137-145)
[2025-03-17 10:17] LABS: Basophils # (A) 0.02 10*3/uL (0.00-0.10); Basophils % (A) 0.2 %; Eosinophils # (A) 0.00 10*3/uL (0.04-0.35); Eosinophils % (A) 0.0 %; HCT 27.3 % (39.6-50.0); HGB 8.5 g/dL (13.0-17.0); Lymphocytes # (A) 1.34 10*3/uL (0.90-5.00); Lymphocytes % (A) 14.2 %; MCH 24.6 pg (27.0-32.0); MCHC 31.1 g/dL (32.0-37.0); MCV 78.9 fL (80.0-97.0); Monocytes # (A) 1.05 10*3/uL (0.20-1.00); Monocytes % (A) 11.1 %; Neutrophils # (A) 6.95 10*3/uL (1.80-7.70); Neutrophils % (A) 73.5 %; Platelet Count 326 10*3/uL (140-440); RBC 3.46 10*6/uL (4.40-5.60); RDW 14.1 % (11.5-14.5); WBC 9.45 10*3/uL (4.50-10.00)
[2025-03-17 12:59] LABS: Bilirubin,Urine Negative (Negative); Blood,Urine Negative (Negative); Color,Urine Dark Yellow; Glucose,Urine (UA) Negative (Negative); Ketones,Urine Negative (Negative); Leukocyte Esterase,Urine Negative (Negative); Nitrite,Urine Negative (Negative); PH, Urine 6.5 (5.0-8.0); Protein,Urine Negative (Negative); Specific Gravity,Urine 1.026 (1.001-1.035); Urobilinogen,Urine <2.0 mg/dL (<2.0)
[2025-03-18 06:34] LABS: Basophils # (A) 0.01 10*3/uL (0.00-0.10); Basophils % (A) 0.1 %; Eosinophils # (A) 0.01 10*3/uL (0.04-0.35); Eosinophils % (A) 0.1 %; HCT 28.8 % (39.6-50.0); HGB 8.8 g/dL (13.0-17.0); Lymphocytes # (A) 1.34 10*3/uL (0.90-5.00); Lymphocytes % (A) 13.0 %; MCH 24.0 pg (27.0-32.0); MCHC 30.6 g/dL (32.0-37.0); MCV 78.5 fL (80.0-97.0); Monocytes # (A) 0.80 10*3/uL (0.20-1.00); Monocytes % (A) 7.8 %; Neutrophils # (A) 8.04 10*3/uL (1.80-7.70); Neutrophils % (A) 78.0 %; Platelet Count 419 10*3/uL (140-440); RBC 3.67 10*6/uL (4.40-5.60); RDW 14.1 % (11.5-14.5); WBC 10.30 10*3/uL (4.50-10.00)
[2025-03-18 06:51] LABS: African American GFR (CKD) >90 (>60 ml/min/1.73 sqM); Anion Gap 8 mmol/L; Blood Urea Nitrogen 12 mg/dL (9-20); Calcium 8.6 mg/dL (8.4-10.2); Carbon Dioxide 26 mmol/L (22-30); Chloride 105 mmol/L (98-107); Glucose 94 mg/dL (74-99); Non-African American GFR(CKD) >90 (>60 ml/min/1.73 sqM); Potassium 3.9 mmol/L (3.5-5.1); Sodium 139 mmol/L (137-145)
[2025-03-18] MEDS: predniSONE 10 MG TAB PO SCH (08:54)
[2025-03-18 15:47] LABS: Iron 17 UG/DL (65-175); Total Iron Binding Capacity 262 UG/DL (228-460)
--- NOTE | 2025-03-18 16:06 | P.PN ---
Subjective Progress Note Date: 03/17/25 Principal diagnosis: Reason for follow-up is fever leukocytosis/colitis Patient is a 25-year-old male past medical history significant for anxiety depression bipolar history of ulcerative colitis for the patient has been on prednisone and mesalamine presenting to the ER concerning for nausea and vomiting unable to keep anything down did have a fever elevated white count prompted this consultation. On today's evaluation that is 03/17/2025,the patient denies any fever or any chills, patient is breathing comfortably on room air, the patient denies chest pain shortness of breath and no significant cough, patient denies abdominal pain, no nausea vomiting and diarrhea is slowed down. Patient white count is 9.45 creatinine 0.78 UA has been negative Objective - Vital Signs Vital signs: Vital Signs Temp 98.2 F 03/17/25 03:43 Pulse 66 03/17/25 12:00 Resp 16 03/17/25 12:00 BP 93/61 03/17/25 12:00 Pulse Ox 97 03/17/25 12:00 FiO2 Intake & Output 03/16/25 03/17/25 03/17/25 18:59 06:59 18:59 Intake Total 1297 1080 0 Output Total 150 Balance 1297 1080 -150 Weight 148.7 kg Intake: Intake, IV Titration 600 Amount Lactated Ringers 1,000 ml 500 @ 100 mls/hr IV .Q10H [facility] Rx#:[id number] Piperacillin-Tazobactam 3 100 .375 gm In Sodium Chloride 0.9% 100 ml @ 25 mls/hr IVPB Q8HR [facility] Rx# :[id number] Oral 697 1080 0 Output: Urine 150 Other: Voiding Method Urinal Urinal Urinal # Voids 1 - Exam GENERAL DESCRIPTION: Middle-age male lying in bed in no distress RESPIRATORY SYSTEM: Unlabored breathing , decreased breath sounds at bases HEART: S1 S2 regular rate and rhythm , ABDOMEN: Soft , no tenderness EXTREMITIES: No edema feet - Labs CBC & Chem 7: 03/18/25 05:37 03/18/25 05:37 Labs: Abnormal Lab Results - Last 24 Hours (Table) 03/17/25 Range/Units 09:56 RBC 3.46 L (4.40-5.60) 10*6/uL Hgb 8.5 L (13.0-17.0) g/dL Hct 27.3 L (39.6-50.0) % MCV 78.9 L (80.0-97.0) fL MCH 24.6 L (27.0-32.0) pg MCHC 31.1 L (32.0-37.0) g/dL Immature Gran # 0.09 H (0.00-0.04) 10*3/uL Monocytes # 1.05 H (0.20-1.00) 10*3/uL Eosinophils # 0.00 L (0.04-0.35) 10*3/uL Microbiology - Last 24 Hours (Table) 03/14/25 11:15 Stool Culture - Preliminary Stool 03/13/25 16:22 Blood Culture - Preliminary Blood Assessment and Plan (1) Fever Current Visit: Yes Status: Acute Code(s): R50.9 - FEVER, UNSPECIFIED SNOMED Code(s): 109677113 (2) Colitis Current Visit: Yes Status: Acute Code(s): K52.9 - NONINFECTIVE GASTROENTERITIS AND COLITIS, UNSPECIFIED SNOMED Code(s): 16104185 Plan: 1patient presented to hospital with intractable nausea and vomiting unable to get in within normal along with diarrhea he did have low-grade fever with evidence of long segment of colitis on the CT and diarrhea concerning for infectious versus noninfectious colitis and 84 for the enteric gram-negative with likely pathogen less likely gram-positive stool for C. difficile has been negative. 2stool culture as well as stool for ova parasite currently pending 3patient did have resolution of his fever white count is trending down, stool cultures so far negative 4patient will be treated with Zosyn while inpatient and monitor clinical course closely Dictation was produced using [employer] dictation software. please excuse any grammatical, word or spelling errors. Time with Patient: Less than 30
--- NOTE | 2025-03-18 16:07 | P.PN ---
Subjective Progress Note Date: 03/18/25 Principal diagnosis: Reason for follow-up is fever leukocytosis/colitis Patient is a 25-year-old male past medical history significant for anxiety depression bipolar history of ulcerative colitis for the patient has been on prednisone and mesalamine presenting to the ER concerning for nausea and vomiting unable to keep anything down did have a fever elevated white count prompted this consultation. On today's evaluation that is 03/18/2025,the patient remains to be afebrile, patient is on room air not requiring supplemental oxygen and mentioned breathing comfortably with no chest pain or cough.Patient denies having any nausea or vomiting, no abdominal pain and mention improvement in the diarrhea. Patient white count is 10.30, creatinine 0.85 culture remains to be negative Objective - Vital Signs Vital signs: Vital Signs Temp 98.1 F 03/18/25 08:00 Pulse 82 03/18/25 14:00 Resp 18 03/18/25 14:00 BP 97/62 03/18/25 12:00 Pulse Ox 99 03/18/25 12:00 FiO2 Intake & Output 03/17/25 03/18/25 03/18/25 18:59 06:59 18:59 Intake Total 240 540 600 Output Total 150 Balance 90 540 600 Weight 149 kg Intake: Oral 240 540 600 Output: Urine 150 Other: Voiding Method Urinal Urinal Urinal # Voids 2 # Bowel Movements 3 - Exam GENERAL DESCRIPTION: Middle-age male lying in bed in no distress RESPIRATORY SYSTEM: Unlabored breathing , decreased breath sounds at bases HEART: S1 S2 regular rate and rhythm , ABDOMEN: Soft , no tenderness EXTREMITIES: No edema feet - Labs CBC & Chem 7: 03/18/25 05:37 03/18/25 05:37 Labs: Abnormal Lab Results - Last 24 Hours (Table) 03/18/25 03/18/25 Range/Units 05:37 05:37 WBC 10.30 H (4.50-10.00) 10*3/uL RBC 3.67 L (4.40-5.60) 10*6/uL Hgb 8.8 L (13.0-17.0) g/dL Hct 28.8 L (39.6-50.0) % MCV 78.5 L (80.0-97.0) fL MCH 24.0 L (27.0-32.0) pg MCHC 30.6 L (32.0-37.0) g/dL Immature Gran # 0.10 H (0.00-0.04) 10*3/uL Neutrophils # 8.04 H (1.80-7.70) 10*3/uL Eosinophils # 0.01 L (0.04-0.35) 10*3/uL Iron 17 L (65-175) UG/DL % Saturation 6.49 L (15.00-50.00) Transferrin 187.0 L (204.0-354.0) mg/dL Microbiology - Last 24 Hours (Table) 03/14/25 11:15 Stool Culture - Final Stool Assessment and Plan (1) Fever Current Visit: Yes Status: Acute Code(s): R50.9 - FEVER, UNSPECIFIED SNOMED Code(s): 809145775 (2) Colitis Current Visit: Yes Status: Acute Code(s): K52.9 - NONINFECTIVE GASTROENTERITIS AND COLITIS, UNSPECIFIED SNOMED Code(s): 72903340 Plan: 1patient presented to hospital with intractable nausea and vomiting unable to get in within normal along with diarrhea he did have low-grade fever with evidence of long segment of colitis on the CT and diarrhea concerning for infectious versus noninfectious colitis and 84 for the enteric gram-negative with likely pathogen less likely gram-positive stool for C. difficile has been negative. 2stool culture as well as stool for ova parasite currently pending 3patient did have resolution of his fever white count normalized culture have been negative 4patient will be treated with Zosyn while inpatient and transition to oral antibiotics on discharge Dictation was produced using [employer] dictation software. please excuse any grammatical, word or spelling errors. Time with Patient: Less than 30
[2025-03-18] MEDS ORDERED: SODIUM FERRIC GLUCONAT-SUCROSE 125 MG in SODIUM CHLORIDE 0.9% 100 ML IVPB SCH (18:00)
[2025-03-18] MEDS: SODIUM FERRIC GLUCONAT-SUCROSE 125 MG in SODIUM CHLORIDE 0.9% 100 ML IVPB SCH (20:07)
--- NOTE | 2025-03-18 23:29 | P.PN ---
Subjective Progress Note Date: 03/16/25 Very pleasant 25-year-old patient, follows with Ana Paula Nam. Patient was recently in the hospital from February 03 through February 06. Patient did present with 3 months of GI symptoms. With up to 10 bowel movements a day. Bloody stools. Abdominal pain. Fever. February 05: Colonoscopy by Dr. Samreen Antunez showed evidence of ulcerative colitis. Received IV Solu-Medrol and will be discharged on prednisone. Patient's symptoms are greatly improved. Completed his prednisone taper. He was started on mesalamine. On Saturday as well as 5 days ago patient started off with fevers. Nausea vomiting. Since then not able to keep anything down. Patient at baseline is down to 4-5 bowel movements a day. Last 4 to 5 days started having 8-10 bowel movements a day. Has some baseline abdominal pain but pain became much more prominent. Also developed a headache and bodyaches initially. ER physician felt the patient may have a UTI and gave the patient dose of IV Zosyn also gave vancomycin and was started on same. IV fluids. Today patient is feeling slightly better though very tired. Still having diarrhea. No chest pain no shortness of breath. Denies any urinary symptoms. Patient had gone back to work. 03/15/2025 Patient is able to ambulate to the bathroom. Denied any complaints of chest pain or shortness of breath on room air. No complaints of fever or chills. No cough or sputum production. Patient is antibiotics and follow Zosyn. Continued on IV hydration with Ringer's lactate reduced to 100 cc/h. Laboratory data showed WBC 5.4 hemoglobin 9.5 and platelets 335 and MCV 77.9. C. difficile negative. Potassium 3.6 BUN 11 creatinine 0.89 and blood sugar 135. proBNP 6380. Troponin 0.822 and 0.181. Cardiology and ID is on board. 03/16/2025 Patient is resting in the bed. Awake alert and oriented. Denied any complaints of abdominal pain. No complaints of chest pain or shortness of breath. Denied any blood in the stool. No fever no chills. Patient remains on antibiotics in the form of Zosyn. Patient is also on IV Solu-Medrol 20 mg Q8 hourly. Review of systems: GEN.: Tired, febrile EYES: None HEENT: None NECK: None RESPIRATORY: None CARDIOVASCULAR: None GASTROINTESTINAL: As above including nausea vomiting GENITOURINARY: None MUSCULOSKELETAL: None LYMPHATICS: None HEMATOLOGICAL: None PSYCHIATRY: Tired NEUROLOGICAL: None Social history: Lives with his brother. Works in the [employer] section at [email or web address]. Denies any smoking alcohol recreational drugs. Physical examination: VITAL SIGNS: Tmax 100.1, heart rate 135 on presentation, 19, 95/57, 99% room air yesterday GENERAL: BMI 44.5, lying in bed tired EYES: Pupils equal. Conjunctiva huber l. HEENT: External appearance of nose and ears normal, oral cavity grossly normal. NECK: JVD not raised; masses not palpable. HEART: First and second heart sounds are normal; no edema. LUNGS: Respiratory rate normal; clear to auscultation. ABDOMEN: Soft, some abdominal tenderness, no guarding rigidity r, liver spleen not palpable, no masses palpable. PSYCH: Rather tired but able to answer questions MUSCULOSKELETAL:No Clubbing/cyanosis;muscles-grossly intact NEUROLOGICAL: Cranial nerves grossly intact; no facial asymmetry, power and sensation grossly intact. LYMPHATICS: No lymph nodes palpable in the axilla and neck INVESTIGATIONS, reviewed in the clinical context: March 14, 2025: White count 8.9 hemoglobin 10.2 platelets 365 sodium 134 potassium 3.5 creatinine 1.06 UA: Ketones 1+ blood moderate leukoesterase small WBC 102 RBC 24 C. difficile: Negative EKG tracing personally reviewed by me-normal sinus rhythm. Nonspecific T wave changes Chest x-ray film personally reviewed by me-unremarkable CT abdomen pelvis: Persistent stooland long segment wall thickening of the transverse descending and sigmoid colon with mild adjacent eccentric inflammatory changes. Suggestive of inflammatory colitis.. Assessment plan: - Acute flare of ulcerative colitis. CT of the abdomen pelvis showed thickening of distal transverse descending and sigmoid colon and inflammatory changes suggestive of inflammatory colitis. At baseline patient says 4-5 bowel movements a day. Some pain of the baseline. For last 4 to 5 days about 8-10 bowel movements a day. Increase in abdominal pain. Decreased appetite. Some fever. This seems to be precipitated by probably a systemic viral infection. Initially patient headache body aches stiffness. Patient does have a colonoscopy on February [address] Samreen Antunez. Findings are compatible with ulcerative colitis. Also the biopsy results. Patient started outpatient, with mesalamine. Had not started the dose. Patient just finished a course of steroid taper. IV Solu-Medrol 40 every 8. Will switch to 20 mg Q8 from tomorrow. Full liquid diet and advance as tolerated. Continue IV antibiotics in the form of Zosyn.. - Sepsis from above IV fluids at the rate of 150 cc an hour. Decrease it to 75 cc/h. Patient is tolerating oral diet.. Procalcitonin 0.26. Influenza, COVID and RSV PCR not detected. ID is on board. Elevated troponin level likely t type II demand ischemia due to sepsis Could be an element of myocarditis Troponin trending down. 2D echo was ordered. Cardiology on board. - Morbid obesity BMI 44.5 Weight loss measures - normocytic anemia from blood loss anemia from GI bleed from ulcerative colitis in the last 3 months. - Lactic acidosis from sepsis. Improved. - Hypoalbuminemia, reactive - Clinical dehydration IV fluids Discussed with the patient and mother at the bedside. Objective - Vital Signs Vital signs: Vital Signs Temp 98.0 F 03/16/25 20:00 Pulse 76 03/16/25 20:00 Resp 18 03/16/25 20:00 BP 101/67 03/16/25 20:00 Pulse Ox 95 03/16/25 20:00 FiO2 Intake & Output 03/16/25 03/16/25 03/17/25 06:59 18:59 06:59 Intake Total 1297 Balance 1297 Weight 146.4 kg Intake: Intake, IV Titration 600 Amount Lactated Ringers 1,000 ml 500 @ 100 mls/hr IV .Q10H [facility] Rx#:[id number] Piperacillin-Tazobactam 3 100 .375 gm In Sodium Chloride 0.9% 100 ml @ 25 mls/hr IVPB Q8HR [facility] Rx# :[id number] Oral 697 Other: Voiding Method Urinal Urinal Urinal # Voids 2 - Labs CBC & Chem 7: 03/18/25 05:37 03/18/25 05:37 Labs: Abnormal Lab Results - Last 24 Hours (Table) 03/16/25 03/16/25 Range/Units 05:39 05:39 RBC 3.38 L (4.40-5.60) 10*6/uL Hgb 8.4 L (13.0-17.0) g/dL Hct 26.3 L (39.6-50.0) % MCV 77.8 L (80.0-97.0) fL MCH 24.9 L (27.0-32.0) pg MCHC 31.9 L (32.0-37.0) g/dL Lymphocytes # 0.71 L (0.90-5.00) 10*3/uL Eosinophils # 0.00 L (0.04-0.35) 10*3/uL Sodium 135 L (137-145) mmol/L Glucose 128 H (74-99) mg/dL Microbiology - Last 24 Hours (Table) 03/14/25 11:15 Stool Culture - Preliminary Stool 03/13/25 16:22 Blood Culture - Preliminary Blood
--- NOTE | 2025-03-18 23:32 | P.PN ---
Subjective Progress Note Date: 03/17/25 Very pleasant 25-year-old patient, follows with Ana Paula Nam. Patient was recently in the hospital from February 03 through February 06. Patient did present with 3 months of GI symptoms. With up to 10 bowel movements a day. Bloody stools. Abdominal pain. Fever. February 05: Colonoscopy by Dr. Samreen Antunez showed evidence of ulcerative colitis. Received IV Solu-Medrol and will be discharged on prednisone. Patient's symptoms are greatly improved. Completed his prednisone taper. He was started on mesalamine. On Saturday as well as 5 days ago patient started off with fevers. Nausea vomiting. Since then not able to keep anything down. Patient at baseline is down to 4-5 bowel movements a day. Last 4 to 5 days started having 8-10 bowel movements a day. Has some baseline abdominal pain but pain became much more prominent. Also developed a headache and bodyaches initially. ER physician felt the patient may have a UTI and gave the patient dose of IV Zosyn also gave vancomycin and was started on same. IV fluids. Today patient is feeling slightly better though very tired. Still having diarrhea. No chest pain no shortness of breath. Denies any urinary symptoms. Patient had gone back to work. 03/15/2025 Patient is able to ambulate to the bathroom. Denied any complaints of chest pain or shortness of breath on room air. No complaints of fever or chills. No cough or sputum production. Patient is antibiotics and follow Zosyn. Continued on IV hydration with Ringer's lactate reduced to 100 cc/h. Laboratory data showed WBC 5.4 hemoglobin 9.5 and platelets 335 and MCV 77.9. C. difficile negative. Potassium 3.6 BUN 11 creatinine 0.89 and blood sugar 135. proBNP 6380. Troponin 0.822 and 0.181. Cardiology and ID is on board. 03/16/2025 Patient is resting in the bed. Awake alert and oriented. Denied any complaints of abdominal pain. No complaints of chest pain or shortness of breath. Denied any blood in the stool. No fever no chills. Patient remains on antibiotics in the form of Zosyn. Patient is also on IV Solu-Medrol 20 mg Q8 hourly. 03/17/2025 Patient is able to ambulate in the hallway. No complaints of abdominal pain. No diarrhea. Tolerating oral diet slowly. Patient remains on antibiotics of Zosyn. Patient has been afebrile. Laboratory showed WBC 9.4 hemoglobin 8.5 and platelets 326 MCV 78.9 Review of systems: GEN.: Tired, febrile EYES: None HEENT: None NECK: None RESPIRATORY: None CARDIOVASCULAR: None GASTROINTESTINAL: As above including nausea vomiting GENITOURINARY: None MUSCULOSKELETAL: None LYMPHATICS: None HEMATOLOGICAL: None PSYCHIATRY: Tired NEUROLOGICAL: None Social history: Lives with his brother. Works in the [employer] at [employer]. Denies any smoking alcohol recreational drugs. Physical examination: VITAL SIGNS: Tmax 100.1, heart rate 135 on presentation, 19, 95/57, 99% room air yesterday GENERAL: BMI 44.5, lying in bed tired EYES: Pupils equal. Conjunctiva huber l. HEENT: External appearance of nose and ears normal, oral cavity grossly normal. NECK: JVD not raised; masses not palpable. HEART: First and second heart sounds are normal; no edema. LUNGS: Respiratory rate normal; clear to auscultation. ABDOMEN: Soft, some abdominal tenderness, no guarding rigidity r, liver spleen not palpable, no masses palpable. PSYCH: Rather tired but able to answer questions MUSCULOSKELETAL:No Clubbing/cyanosis;muscles-grossly intact NEUROLOGICAL: Cranial nerves grossly intact; no facial asymmetry, power and sensation grossly intact. LYMPHATICS: No lymph nodes palpable in the axilla and neck INVESTIGATIONS, reviewed in the clinical context: March 14, 2025: White count 8.9 hemoglobin 10.2 platelets 365 sodium 134 potassiu m 3.5 creatinine 1.06 UA: Ketones 1+ blood moderate leukoesterase small WBC 102 RBC 24 C. difficile: Negative EKG tracing personally reviewed by me-normal sinus rhythm. Nonspecific T wave changes Chest x-ray film personally reviewed by me-unremarkable CT abdomen pelvis: Persistent stooland long segment wall thickening of the transverse descending and sigmoid colon with mild adjacent eccentric inf lammatory changes. Suggestive of inflammatory colitis.. Assessment plan: - Acute flare of ulcerative colitis. CT of the abdomen pelvis showed thickening of distal transverse descending and sigmoid colon and inflammatory changes suggestive of inflammatory colitis. At baseline patient says 4-5 bowel movements a day. Some pain of the baseline. For last 4 to 5 days about 8-10 bowel movements a day. Increase in abdominal pain. Decreased appetite. Some fever. This seems to be precipitated by probably a systemic viral infection. Initially patient headache body aches stiffness. Patient does have a colonoscopy on February [address] Samreen Antunez. Findings are compatible with ulcerative colitis. Also the biopsy results. Patient started outpatient, with mesalamine. Had not started the dose. Patient just finished a course of steroid taper. IV Solu-Medrol 40 every 8. Will switch to 20 mg Q8 from tomorrow. Switch to prednisone 30 mg daily tapering course. Full liquid diet and advance as tolerated. Continue IV antibiotics in the form of Zosyn.. - Sepsis from above IV fluids at the rate of 150 cc an hour. Decrease it to 75 cc/h. Patient is tolerating oral diet.. Procalcitonin 0.26. Influenza, COVID and RSV PCR not detected. ID is on board. Elevated troponin level likely t type II demand ischemia due to sepsis Could be an element of myocarditis Troponin trending down. 2D echo was ordered. Cardiology on board. - Morbid obesity BMI 44.5 Weight loss measures - normocytic anemia from blood loss anemia from GI bleed from ulcerative colitis in the last 3 months. - Lactic acidosis from sepsis. Improved. - Hypoalbuminemia, reactive - Clinical dehydration IV fluids Discussed with the patient and mother at the bedside. Objective - Vital Signs Vital signs: Vital Signs Temp 98.2 F 03/17/25 20:00 Pulse 67 03/17/25 20:00 Resp 18 03/17/25 20:00 BP 100/68 03/17/25 20:00 Pulse Ox 99 03/17/25 20:00 FiO2 Intake & Output 03/17/25 03/17/25 03/18/25 06:59 18:59 06:59 Intake Total 1080 240 Output Total 150 Balance 1080 90 Weight 148.7 kg Intake: Oral 1080 240 Output: Urine 150 Other: Voiding Method Urinal Urinal Urinal # Voids 1 - Labs CBC & Chem 7: 03/18/25 05:37 03/18/25 05:37 Labs: Abnormal Lab Results - Last 24 Hours (Table) 03/17/25 Range/Units 09:56 RBC 3.46 L (4.40-5.60) 10*6/uL Hgb 8.5 L (13.0-17.0) g/dL Hct 27.3 L (39.6-50.0) % MCV 78.9 L (80.0-97.0) fL MCH 24.6 L (27.0-32.0) pg MCHC 31.1 L (32.0-37.0) g/dL Immature Gran # 0.09 H (0.00-0.04) 10*3/uL Monocytes # 1.05 H (0.20-1.00) 10*3/uL Eosinophils # 0.00 L (0.04-0.35) 10*3/uL Microbiology - Last 24 Hours (Table) 03/14/25 11:15 Stool Culture - Preliminary Stool 03/13/25 16:22 Blood Culture - Preliminary Blood
--- NOTE | 2025-03-18 23:33 | P.PN ---
Subjective Progress Note Date: 03/18/25 Very pleasant 25-year-old patient, follows with Ana Paula Nam. Patient was recently in the hospital from February 03 through February 06. Patient did present with 3 months of GI symptoms. With up to 10 bowel movements a day. Bloody stools. Abdominal pain. Fever. February 05: Colonoscopy by Dr. Samreen Antunez showed evidence of ulcerative colitis. Received IV Solu-Medrol and will be discharged on prednisone. Patient's symptoms are greatly improved. Completed his prednisone taper. He was started on mesalamine. On Saturday as well as 5 days ago patient started off with fevers. Nausea vomiting. Since then not able to keep anything down. Patient at baseline is down to 4-5 bowel movements a day. Last 4 to 5 days started having 8-10 bowel movements a day. Has some baseline abdominal pain but pain became much more prominent. Also developed a headache and bodyaches initially. ER physician felt the patient may have a UTI and gave the patient dose of IV Zosyn also gave vancomycin and was started on same. IV fluids. Today patient is feeling slightly better though very tired. Still having diarrhea. No chest pain no shortness of breath. Denies any urinary symptoms. Patient had gone back to work. 03/15/2025 Patient is able to ambulate to the bathroom. Denied any complaints of chest pain or shortness of breath on room air. No complaints of fever or chills. No cough or sputum production. Patient is antibiotics and follow Zosyn. Continued on IV hydration with Ringer's lactate reduced to 100 cc/h. Laboratory data showed WBC 5.4 hemoglobin 9.5 and platelets 335 and MCV 77.9. C. difficile negative. Potassium 3.6 BUN 11 creatinine 0.89 and blood sugar 135. proBNP 6380. Troponin 0.822 and 0.181. Cardiology and ID is on board. 03/16/2025 Patient is resting in the bed. Awake alert and oriented. Denied any complaints of abdominal pain. No complaints of chest pain or shortness of breath. Denied any blood in the stool. No fever no chills. Patient remains on antibiotics in the form of Zosyn. Patient is also on IV Solu-Medrol 20 mg Q8 hourly. 03/17/2025 Patient is able to ambulate in the hallway. No complaints of abdominal pain. No diarrhea. Tolerating oral diet slowly. Patient remains on antibiotics of Zosyn. Patient has been afebrile. Laboratory showed WBC 9.4 hemoglobin 8.5 and platelets 326 MCV 78.9 03/18/2025 Patient is sitting in the bed. Awake alert and oriented. Currently on room air. No complaints of chest pain or shortness of breath. Abdominal pain much i mproved. Denied any nausea or vomiting. No cough or sputum production. Patient has been afebrile. Patient remains on IV antibiotics. Laboratory data WBC 10.3 hemoglobin 8.8 and platelets 419. Iron profile showed deficiency. Anticipate discharge in next 24 hours if hemoglobin is stable. Review of systems: GEN.: Tired, febrile EYES: None HEENT: None NECK: None RESPIRATORY: None CARDIOVASCULAR: None GASTROINTESTINAL: As above including nausea vomiting GENITOURINARY: None MUSCULOSKELETAL: None LYMPHATICS: None HEMATOLOGICAL: None PSYCHIATRY: Tired NEUROLOGICAL: None Social history: Lives with his brother. Works in the [employer]. Denies any smoking alcohol recreational drugs. Physical examination: VITAL SIGNS: Tmax 100.1, heart rate 135 on presentation, 19, 95/57, 99% room air yesterday GENERAL: BMI 44.5, lying in bed tired EYES: Pupils equal. Conjunctiva huber l. HEENT: External appearance of nose and ears normal, oral cavity grossly normal. NECK: JVD not raised; masses not palpable. HEART: First and second heart sounds are normal; no edema. LUNGS: Respiratory rate normal; clear to auscultation. ABDOMEN: Soft, some abdominal tenderness, no guarding rigidity r, liver spleen not palpable, no masses palpable. PSYCH: Rather tired but able to answer questions MUSCULOSKELETAL:No Clubbing/cyanosis;muscles-grossly intact NEUROLOGICAL: Cranial nerves grossly intact; no facial asymmetry, power and sensation grossly intact. LYMPHATICS: No lymph nodes palpable in the axilla and neck INVESTIGATIONS, reviewed in the clinical context: March 14, 2025: White count 8.9 hemoglobin 10.2 platelets 365 sodium 134 potassium 3.5 creatinine 1.06 UA: Ketones 1+ blood moderate leukoesterase small WBC 102 RBC 24 C. difficile: Negative EKG tracing personally reviewed by me-normal sinus rhythm. Nonspecific T wave changes Chest x-ray film personally reviewed by me-unremarkable CT abdomen pelvis: Persistent stooland long segment wall thickening of the transverse descending and sigmoid colon with mild adjacent eccentric inflammatory changes. Suggestive of inflammatory colitis.. Assessment plan: - Acute flare of ulcerative colitis. CT of the abdomen pelvis showed thickening of distal transverse descending and sigmoid colon and inflammatory changes suggestive of inflammatory colitis. At baseline patient says 4-5 bowel movements a day. Some pain of the baseline. For last 4 to 5 days about 8-10 bowel movements a day. Increase in abdominal pain. Decreased appetite. Some fever. This seems to be precipitated by probably a systemic viral infection. Initially patient headache body aches stiffness. Patient does have a colonoscopy on February [address] Samreen Antunez. Findings are compatible with ulcerative colitis. Also the biopsy results. Patient started outpatient, with mesalamine. Had not started the dose. Patient just finished a course of steroid taper. IV Solu-Medrol 40 every 8. Will switch to 20 mg Q8 from tomorrow. Switched to prednisone 30 mg daily tapering course on 03/17/2025. Full liquid diet and advance as tolerated. Continue IV antibiotics in the form of Zosyn.. - Sepsis from above IV fluids at the rate of 150 cc an hour. Decrease it to 75 cc/h. Patient is tolerating oral diet.. Procalcitonin 0.26. Influenza, COVID and RSV PCR not detected. ID is on board. Elevated troponin level likely t type II demand ischemia due to sepsis Could be an element of myocarditis Troponin trending down. 2D echo was ordered. Cardiology on board. - Morbid obesity BMI 44.5 Weight loss measures - normocytic iron deficiency anemia from blood loss anemia from GI bleed from ulcerative colitis in the last 3 months. Will start on IV iron supplementation. - Lactic acidosis from sepsis. Improved. - Hypoalbuminemia, reactive - Clinical dehydration IV fluids Discussed with the patient and mother at the bedside. Objective - Vital Signs Vital signs: Vital Signs Temp 98.0 F 03/18/25 20:00 Pulse 72 03/18/25 20:00 Resp 18 03/18/25 20:00 BP 111/71 03/18/25 20:00 Pulse Ox 100 03/18/25 20:00 FiO2 Intake & Output 03/18/25 03/18/25 03/19/25 06:59 18:59 06:59 Intake Total 540 780 Balance 540 780 Weight 149 kg Intake: Oral 540 780 Other: Voiding Method Urinal Urinal Urinal # Voids 2 1 # Bowel Movements 3 1 - Labs CBC & Chem 7: 03/18/25 05:37 03/18/25 05:37 Labs: Abnormal Lab Results - Last 24 Hours (Table) 03/18/25 03/18/25 Range/Units 05:37 05:37 WBC 10.30 H (4.50-10.00) 10*3/uL RBC 3.67 L (4.40-5.60) 10*6/uL Hgb 8.8 L (13.0-17.0) g/dL Hct 28.8 L (39.6-50.0) % MCV 78.5 L (80.0-97.0) fL MCH 24.0 L (27.0-32.0) pg MCHC 30.6 L (32.0-37.0) g/dL Immature Gran # 0.10 H (0.00-0.04) 10*3/uL Neutrophils # 8.04 H (1.80-7.70) 10*3/uL Eosinophils # 0.01 L (0.04-0.35) 10*3/uL Iron 17 L (65-175) UG/DL % Saturation 6.49 L (15.00-50.00) Transferrin 187.0 L (204.0-354.0) mg/dL Microbiology - Last 24 Hours (Table) 03/14/25 11:15 Stool Culture - Final Stool
[2025-03-19 07:16] LABS: Basophils # (A) 0.01 10*3/uL (0.00-0.10); Basophils % (A) 0.1 %; Eosinophils # (A) 0.07 10*3/uL (0.04-0.35); Eosinophils % (A) 0.6 %; HCT 28.1 % (39.6-50.0); HGB 8.5 g/dL (13.0-17.0); Lymphocytes # (A) 2.56 10*3/uL (0.90-5.00); Lymphocytes % (A) 23.7 %; MCH 24.1 pg (27.0-32.0); MCHC 30.2 g/dL (32.0-37.0); MCV 79.6 fL (80.0-97.0); Monocytes # (A) 0.76 10*3/uL (0.20-1.00); Monocytes % (A) 7.1 %; Neutrophils # (A) 7.19 10*3/uL (1.80-7.70); Neutrophils % (A) 66.7 %; Platelet Count 443 10*3/uL (140-440); RBC 3.53 10*6/uL (4.40-5.60); RDW 14.2 % (11.5-14.5); WBC 10.78 10*3/uL (4.50-10.00)
[2025-03-19 07:39] LABS: African American GFR (CKD) >90 (>60 ml/min/1.73 sqM); Anion Gap 5 mmol/L; Blood Urea Nitrogen 10 mg/dL (9-20); Calcium 8.3 mg/dL (8.4-10.2); Carbon Dioxide 29 mmol/L (22-30); Chloride 103 mmol/L (98-107); Glucose 75 mg/dL (74-99); Non-African American GFR(CKD) >90 (>60 ml/min/1.73 sqM); Potassium 3.7 mmol/L (3.5-5.1); Sodium 137 mmol/L (137-145)
[2025-03-19 14:40] VITALS: BMI 44.6
[2025-03-19 15:16] VITALS: BP 103/69; PULSE 84; RESP 17; TEMP 98.2
--- NOTE | 2025-03-19 15:32 | P.PN ---
Subjective Progress Note Date: 03/19/25 Principal diagnosis: Reason for follow-up is fever leukocytosis/colitis Patient is a 25-year-old male past medical history significant for anxiety depression bipolar history of ulcerative colitis for the patient has been on prednisone and mesalamine presenting to the ER concerning for nausea and vomiting unable to keep anything down did have a fever elevated white count prompted this consultation. On today's evaluation that is 03/19/2025, the patient continues to be afebrile, the patient is on room air and breathing comfortably, the Pt denies having any chest pain or cough, the patient denies having any abdominal pain no vomiting or any diarrhea. Patient white count is 10.78, creatinine 0.74 Objective - Vital Signs Vital signs: Vital Signs Temp 98.2 F 03/19/25 15:16 Pulse 84 03/19/25 15:16 Resp 17 03/19/25 15:16 BP 103/69 03/19/25 15:16 Pulse Ox 98 03/19/25 15:16 FiO2 Intake & Output 03/18/25 03/19/25 03/19/25 18:59 06:59 18:59 Intake Total 780 560 Balance 780 560 Weight 145.4 kg 145.4 kg Intake: Intake, IV Titration 200 Amount Piperacillin-Tazobactam 3 100 .375 gm In Sodium Chloride 0.9% 100 ml @ 25 mls/hr IVPB Q8HR [facility] Rx# :[id number] Sodium Ferric Gluconat- 100 Sucrose 125 mg In Sodium Chloride 0.9% 100 ml @ 100 mls/hr IVPB DAILY [facility] Rx#:[id number] Oral 780 360 Other: Voiding Method Urinal Urinal Urinal # Voids 2 1 # Bowel Movements 3 1 - Exam GENERAL DESCRIPTION: Middle-age male lying in bed in no distress RESPIRATORY SYSTEM: Unlabored breathing , decreased breath sounds at bases HEART: S1 S2 regular rate and rhythm , ABDOMEN: Soft , no tenderness EXTREMITIES: No edema feet - Labs CBC & Chem 7: 03/19/25 07:03 03/19/25 07:03 Labs: Abnormal Lab Results - Last 24 Hours (Table) 03/18/25 03/19/25 03/19/25 Range/Units 05:37 07:03 07:03 WBC 10.78 H (4.50-10.00) 10*3/uL RBC 3.53 L (4.40-5.60) 10*6/uL Hgb 8.5 L (13.0-17.0) g/dL Hct 28.1 L (39.6-50.0) % MCV 79.6 L (80.0-97.0) fL MCH 24.1 L (27.0-32.0) pg MCHC 30.2 L (32.0-37.0) g/dL Plt Count 443 H (140-440) 10*3/uL Immature Gran # 0.19 H (0.00-0.04) 10*3/uL Calcium 8.3 L (8.4-10.2) mg/dL Iron 17 L (65-175) UG/DL % Saturation 6.49 L (15.00-50.00) Transferrin 187.0 L (204.0-354.0) mg/dL Microbiology - Last 24 Hours (Table) 03/13/25 16:22 Blood Culture - Final Blood Assessment and Plan (1) Fever Current Visit: Yes Status: Acute Code(s): R50.9 - FEVER, UNSPECIFIED SNOMED Code(s): 160230252 (2) Colitis Current Visit: Yes Status: Acute Code(s): K52.9 - NONINFECTIVE GASTROE NTERITIS AND COLITIS, UNSPECIFIED SNOMED Code(s): 92907388 Plan: 1patient presented to hospital with intractable nausea and vomiting unable to get in within normal along with diarrhea he did have low-grade fever with evidence of long segment of colitis on the CT and diarrhea concerning for infectious versus noninfectious colitis and 84 for the enteric gram-negative with likely pathogen less likely gram-positive stool for C. difficile has been negative. 2stool culture as well as stool for ova parasite currently pending 3patient did have resolution of his fever white count normalized culture have been negative so far 4patient will be treated with IV Zosyn while inpatient transition to oral antibiotics on discharge Dictation was produced using [employer] dictation software. please excuse any grammatical, word or spelling errors. Time with Patient: Less than 30
--- NOTE | 2025-03-24 15:03 | P.PN ---
Subjective Progress Note Date: 03/24/25 Principal diagnosis: Reason for follow-up is fever leukocytosis/colitis Patient is a 25-year-old male with a past medical history significant for ulcerative colitis recent admission to the hospital with a fever and has evidence of colitis on the CT concerning for possible exacerbation of his UC stool for C. difficile was negative patient was treated with Zosyn did have clinical improvement discharged home on oral antibiotics now presenting back to the hospital with sepsis and evidence of colitis on the CT. On today's evaluation that is 03/24/2025,the patient d did have resolution of his fever and is afebrile today, patient is breathing comfortably on room air, the patient denies chest pain shortness of breath and no significant cough, patient denies abdominal pain, no further vomiting or any worsening diarrhea. The patient white count is down to 10.16 creatinine 0.65 stool for C. difficile is negative stool cultures are pending. Objective - Vital Signs Vital signs: Vital Signs Temp 98.2 F 03/19/25 15:16 Pulse 84 03/19/25 15:16 Resp 17 03/19/25 15:16 BP 103/69 03/19/25 15:16 Pulse Ox 98 03/19/25 15:16 FiO2 - Exam GENERAL DESCRIPTION: Middle-age male lying in bed in no distress RESPIRATORY SYSTEM: Unlabored breathing , decreased breath sounds at bases HEART: S1 S2 regular rate and rhythm , ABDOMEN: Soft , no tenderness EXTREMITIES: No edema feet - Labs CBC & Chem 7: 03/19/25 07:03 03/19/25 07:03 Assessment and Plan (1) Colitis Status: Acute Code(s): K52.9 - NONINFECTIVE GASTROENTERITIS AND COLITIS, UNSPECIFIED SNOMED Code(s): 37589893 (2) Sepsis Status: Acute Code(s): A41.9 - SEPSIS, UNSPECIFIED ORGANISM SNOMED Code(s): 08722456 Plan: 1patient presented hospital with sepsis in this patient who did have a fever tachycardia hypotension elevated white count, elevated lactic acid meeting criteria for SIRS //sepsis source likely abdominal in this patient who did have a history of UC and recently to hospital with colitis will require further enteric gram-negative both aerobes and anaerobes 2- CT of abdominal pelvis did shows evidence of colitis no perforation or abscess 3-stool for C. difficile negative stool culture currently pending 4-patient mention some clinical improvement white count is trending down continue with Zosyn 3.375 g every 8 hours GI following the patient as well Dictation was produced using [employer] dictation software. please excuse any grammatical, word or spelling errors. Time with Patient: Less than 30
== END 2025-03-19 16:01 | disposition home or self-care (01) | DRG 871 ==
LOC: EC 15:37 → 3SCARD 20:06
PROVIDERS: ADMIT Hospitalist; ATTEND Hospitalist
DX: A41.9 Sepsis, unspecified organism (principal); I21.A1 Myocardial infarction type 2; E87.20 Acidosis, unspecified; K51.90 Ulcerative colitis, unspecified, without complications; N39.0 Urinary tract infection, site not specified; Z68.41 Body mass index [BMI] 40.0-44.9, adult; E66.01 Morbid (severe) obesity due to excess calories; F31.9 Bipolar disorder, unspecified; D50.0 Iron deficiency anemia secondary to blood loss (chronic); E88.09 Other disorders of plasma-protein metabolism, not elsewhere classified; E86.0 Dehydration; F41.9 Anxiety disorder, unspecified; I95.9 Hypotension, unspecified; R31.9 Hematuria, unspecified; Z79.60 Long term (current) use of unspecified immunomodulators and immunosuppressants; Z79.899 Other long term (current) drug therapy; Z71.3 Dietary counseling and surveillance
CPT/HCPCS: 36415; 71045; 71275; 74177; 80048; 80053; 81001; 81003; 82550; 83540; 83550; 83605; 83735; 83880; 84100; 84145; 84443; 84484; 85025; 85379; 85610; 85730; 86140; 87040; 87045; 87046; 87324; 87636; 93005; 93306; 96361; 96365; 96367; 96375; 99291

== ENCOUNTER 2025-03-23 11:54 | Inpatient (IN) | payer BC ==
--- NOTE | 2025-03-23 12:23 | ED ---
General Adult HPI - General Chief complaint: Weakness Stated complaint: Fever/Vomiting/Irrg Labs Time Seen by Provider: 03/23/25 12:12 Source: patient, family Mode of arrival: ambulatory Limitations: no limitations - History of Present Illness Initial comments: Dictation was produced using [employer] dictation software. please excuse any grammatical, word or spelling errors. Chief Complaint: 25-year-old male presents emergency department with weakness History of Present Illness: Patient 25-year-old male recently diagnosed with ulcerative colitis was recently admitted to the hospital for sepsis. Patient was just discharged 4 days ago. Was doing fine until yesterday started to feel little lightheaded. Mother who provides history present illness states that patient texted her today and told her that he was feeling ill. Mother went to check his blood pressure was found to be low. Patient denies any pain complaints. She states that he is feeling really fatigued and lethargic. Denies any pain complaints. The ROS documented in this emergency department record has been reviewed and confirmed by me. Those systems with pertinent positive or negative responses have been documented in the HPI. All other systems are other negative and/or n oncontributory. - Related Data Home Medications Medication Instructions Recorded Confirmed Mesalamine [Lialda] 4.8 gm PO HS@2100 03/13/25 03/13/25 Previous Rx's Medication Instructions Recorded Acetaminophen Tab [Tylenol] 650 mg PO Q6HR PRN tab 02/06/25 Amoxic-Pot Clav 875-125Mg 1 tab PO BID 4 Days #8 tab 03/19/25 [Augmentin 875-125] predniSONE See Taper PO DAILY 19 Days #36 tab 03/19/25 Allergies Allergy/AdvReac Type Severity Reaction Status Date / Time No Known Allergies Allergy Verified 03/13/25 18:36 Review of Systems ROS Statement: Those systems with pertinent positive or pertinent negative responses have been documented in the HPI. ROS Other: All systems not noted in ROS Statement are negative. Past Medical History Past Medical History: No Reported History Additional Past Medical History / Comment(s): colitis History of Any Multi-Drug Resistant Organisms: None Reported Past Surgical History: No Surgical Hx Reported Past Psychological History: Anxiety, Bipolar, Depression Smoking Status: Never smoker Past Alcohol Use History: None Reported Past Drug Use History: None Reported General Exam - General Exam Comments Initial Comments: PHYSICAL EXAM: General Impression: Alert and oriented x3, lethargic, pale HEENT: Normocephalic atraumatic, extra-ocular movements intact, pupils equal and reactive to light bilaterally, mucous membranes moist. Cardiovascular: Heart regular rate and rhythm Chest: Able to complete full sentences, no retractions, no tachypnea Abdomen: abdomen soft, non-tender, non-distended, no organomegaly Musculoskeletal: Pulses present and equal in all extremities, no peripheral edema Motor: no focal deficits noted Neurological: CN II-XII grossly intact, no focal motor or sensory deficits noted Skin: Intact with no visualized rashes Psych: Normal affect and mood Limitations: no limitations Course Vital Signs 03/23/25 03/23/25 03/23/25 11:59 12:15 13:00 Temperature 100.9 F H Pulse Rate 103 H 91 92 Respiratory 20 20 18 Rate Blood Pressure 74/37 99/77 90/33 O2 Sat by Pulse 99 97 96 Oximetry 03/23/25 03/23/25 03/23/25 13:22 13:53 14:15 Temperature 100.2 F H Pulse Rate 93 93 83 Respiratory 20 20 20 Rate Blood Pressure 88/32 91/38 82/42 O2 Sat by Pulse 99 98 96 Oximetry 03/23/25 03/23/25 14:45 14:56 Temperature 101.1 F H Pulse Rate 82 76 Respiratory 22 22 Rate Blood Pressure 84/41 93/49 O2 Sat by Pulse 94 L 96 Oximetry Procedures - Sepsis Sepsis Focused Exam #1 Time Sepsis Criteria Met: 14:23 Sepsis Focused Exam Date: 03/23/25 Sepsis Focused Exam Time: 14:23 Sepsis Focused Exam Complete: Yes Vital Signs & RN Notes Reviewed: Yes Capillary Refill: > 2 Seconds: Fingers, Toes Peripheral Pulses: Weak: Radial (R), Radial (L), Posterior Tibialis (R), Posterior Tibialis (L), Dorsalis Pedis (R), Dorsalis Pedis (L) Skin Color: Ashen Respiratory Exam: normal lung sounds Cardiovascular Exam: regular rate Medical Decision Making - Medical Decision Making Was pt. sent in by a medical professional or institution (, PA, NEWSPAPER CARRIER, urgent care, hospital, or custodial...) When possible be specific @ -No Did you speak to anyone other than the patient for history (EMS, parent, family, police, friend...)? What history was obtained from this source @ -Mother as described above Did you review nursing and triage notes (agree or disagree)? Why? @ -I reviewed and agree with nursing and triage notes Were old charts reviewed (outside hosp., previous admission, EMS record, old EKG, old radiological studies, urgent care reports/EKG's, custodial records)? Report findings @ -Documents from previous admission was reviewed showing patient was admitted for colitis. He was seen by infectious disease had normal microbiology stool results. Is concerned that patient have an exacerbation of his ulcerative colitis Differential Diagnosis (chest pain, altered mental status, abdominal pain women, abdominal pain men, vaginal bleeding, musculoskeletal, weakness, fever, dyspnea, syncope, headache, dizziness, GI bleed, back pain, seizure, CVA, palpatations, mental health)? @ -Differential Weakness: Hypoglycemia, shock, sepsis, hyponatremia, anemia, infection, AK, ETOH, adverse medicine reaction, overdose, stroke, this is not meant to be an all-inclusive list. EKG interpreted by me (3pts min.). @ -My EKG interpretation: Ventricular rate 84, sinus rhythm, GA 127, QRS 89, QTc 356. No GA prolongation, no QTC prolongation, no ST or T-wave changes noted. Overall, this EKG is unremarkable X-rays interpreted by me (1pt min.). @ -Chest x-ray is nonacute CT interpreted by me (1pt min.). @ -None done U/S interpreted by me (1pt. min.). @ -None done What testing was considered but not performed or refused? (CT, X-rays, U/S, labs)? Why? @ -None What meds were considered but not given or refused? Why? @ -None Was smoking cessation discussed for >3mins.? @ -No Were there social determinants of health that impacted care today? How? (Home lessness, low income, unemployed, alcoholism, drug addiction, transportation, low edu. Level, literacy, decrease access to med. care, penitentiary, rehab)? @ -No Was there de-escalation of care discussed even if they declined (Discuss DNR or withdrawal of care, Hospice)? DNR status @ -No What co-morbidities impacted this encounter? (DM, HTN, Smoking, COPD, CAD, Cancer, CVA, ARF, Chemo, Hep., AIDS, mental health diagnosis, sleep apnea, morbid obesity)? @ -Ulcerative colitis Was patient admitted / discharged? Hospital course, mention meds given and route, prescriptions, significant lab abnormalities, going to OR and other pertinent info. @ -25-year-old male with recent diagnosis of ulcerative colitis and just discharged 4 days ago Mercedes presents to the emergency department for lethargy. Patient significantly weak. Denies any pain. Blood pressure upon arrival shows measurement of 74/37 given 30 cc/kg bolus based on ideal body weight of lactated Ringer's. Patient's blood pressure improved patient lethargic pale appearing at the bedside. Laboratory evaluation shows leukocytosis of 15.36, hemoglobin 7.0. Lactic acidosis 2.7. Given patient's hypotension there is concern of sepsis. Patient started on antibiotics. Patient started on single dose vasopressors will be admitted to the ICU. Case discussed with hospitalist for admission Case discussed with administrative volunteer for admission. Did you discuss the management of the patient with other professionals (professionals i.e. , PA, NEWSPAPER CARRIER, lab, RT, psych nurse, home health care social worker, dental technician instructor, teacher, chief mechanical officer, case resource manager)? Give summary @ -See above Was critical care preformed (if so, how long)? @ -Yes, 77 minutes Undiagnosed new problem with uncertain prognosis? @ -No Drug Therapy requiring intensive monitoring for toxicity (Heparin, Nitro, Insulin, Cardizem)? @ -No Were any procedures done? @ -No Diagnosis/symptom? Acute, or Chronic, or Acute on Chronic? Uncomplicated (without systemic symptoms) or Complicated (systemic symptoms)? @ -Hemorrhagic shock Side effects of treatment? @ -No Exacerbation, Progression, or Severe Exacerbation? @ -No Poses a threat to life or bodily function? How? (Chest pain, USA, AK, pneumonia, PE, COPD, DKA, ARF, appy, cholecystitis, CVA, Diverticulitis, Homicidal, Suicidal, threat to staff... and all critical care pts) @ -yes - Lab Data Result diagrams: 03/23/25 12:41 03/23/25 12:41 Lab Results 03/23/25 03/23/25 03/23/25 Range/Units 12:41 12:41 12:41 WBC 15.36 H (4.50-10.00) 10*3/uL RBC 2.72 L (4.40-5.60) 10*6/uL Hgb 7.0 L D (13.0-17.0) g/dL Hct 22.1 L (39.6-50.0) % MCV 81.3 (80.0-97.0) fL MCH 25.7 L (27.0-32.0) pg MCHC 31.7 L (32.0-37.0) g/dL Plt Count 448 H (140-440) 10*3/uL MPV 10.2 (9.5-12.2) fL Immature Gran % (Auto) 1.6 % Neutrophils % 80.0 % Lymphocytes % 8.6 % Monocytes % 9.6 % Eosinophils % 0.0 % Basophils % 0.2 % Immature Gran # 0.25 H (0.00-0.04) 10*3/uL Neutrophils # 12.28 H (1.80-7.70) 10*3/uL Lymphocytes # 1.32 (0.90-5.00) 10*3/uL Monocytes # 1.48 H (0.20-1.00) 10*3/uL Eosinophils # 0.00 L (0.04-0.35) 10*3/uL Basophils # 0.03 (0.00-0.10) 10*3/uL PT 11.2 (10.0-12.5) sec INR 1.0 (<1.2) APTT 21.3 L (22.0-30.0) sec Sodium 134 L (137-145) mmol/L Potassium 4.6 (3.5-5.1) mmol/L Chloride 102 (98-107) mmol/L Carbon Dioxide 25 (22-30) mmol/L Anion Gap 7 mmol/L BUN 13 (9-20) mg/dL Creatinine 0.83 (0.66-1.25) mg/dL Est GFR (CKD-EPI)AfAm >90 (>60 ml/min/1.73 sqM) Est GFR (CKD-EPI)NonAf >90 (>60 ml/min/1.73 sqM) Glucose 87 (74-99) mg/dL Plasma Lactic Acid Dain (0.7-2.0) mmol/L Calcium 8.6 (8.4-10.2) mg/dL Total Bilirubin 0.8 (0.2-1.3) mg/dL AST 25 (17-59) U/L ALT 30 (4-49) U/L Alkaline Phosphatase 51 (38-126) U/L Total Protein 5.6 L (6.3-8.2) g/dL Albumin 3.1 L (3.5-5.0) g/dL 03/23/25 Range/Units 12:41 WBC (4.50-10.00) 10*3/uL RBC (4.40-5.60) 10*6/uL Hgb (13.0-17.0) g/dL Hct (39.6-50.0) % MCV (80.0-97.0) fL MCH (27.0-32.0) pg MCHC (32.0-37.0) g/dL Plt Count (140-440) 10*3/uL MPV (9.5-12.2) fL Immature Gran % (Auto) % Neutrophils % % Lymphocytes % % Monocytes % % Eosinophils % % Basophils % % Immature Gran # (0.00-0.04) 10*3/uL Neutrophils # (1.80-7.70) 10*3/uL Lymphocytes # (0.90-5.00) 10*3/uL Monocytes # (0.20-1.00) 10*3/uL Eosinophils # (0.04-0.35) 10*3/uL Basophils # (0.00-0.10) 10*3/uL PT (10.0-12.5) sec INR (<1.2) APTT (22.0-30.0) sec Sodium (137-145) mmol/L Potassium (3.5-5.1) mmol/L Chloride (98-107) mmol/L Carbon Dioxide (22-30) mmol/L Anion Gap mmol/L BUN (9-20) mg/dL Creatinine (0.66-1.25) mg/dL Est GFR (CKD-EPI)AfAm (>60 ml/min/1.73 sqM) Est GFR (CKD-EPI)NonAf (>60 ml/min/1.73 sqM) Glucose (74-99) mg/dL Plasma Lactic Acid Dain 2.7 H* (0.7-2.0) mmol/L Calcium (8.4-10.2) mg/dL Total Bilirubin (0.2-1.3) mg/dL AST (17-59) U/L ALT (4-49) U/L Alkaline Phosphatase (38-126) U/L Total Protein (6.3-8.2) g/dL Albumin (3.5-5.0) g/dL Disposition Clinical Impression: Hemorrhagic shock Disposition: ADMITTED IP TO THIS [facility] Condition: Critical Referrals: Federico Carrington MD [Primary Care Provider] - 1-2 days Decision Time: 15:16
[2025-03-23] MEDS: LACTATED RINGERS 1,000 ML IV SCH ×2 (12:43→14:55)
[2025-03-23 13:04] LABS: Basophils # (A) 0.03 10*3/uL (0.00-0.10); Basophils % (A) 0.2 %; Eosinophils # (A) 0.00 10*3/uL (0.04-0.35); Eosinophils % (A) 0.0 %; HCT 22.1 % (39.6-50.0); Lymphocytes # (A) 1.32 10*3/uL (0.90-5.00); Lymphocytes % (A) 8.6 %; MCH 25.7 pg (27.0-32.0); MCHC 31.7 g/dL (32.0-37.0); MCV 81.3 fL (80.0-97.0); Monocytes # (A) 1.48 10*3/uL (0.20-1.00); Monocytes % (A) 9.6 %; Neutrophils # (A) 12.28 10*3/uL (1.80-7.70); Neutrophils % (A) 80.0 %; Platelet Count 448 10*3/uL (140-440); RBC 2.72 10*6/uL (4.40-5.60); RDW 16.9 % (11.5-14.5); WBC 15.36 10*3/uL (4.50-10.00)
[2025-03-23 13:05] LABS: HGB 7.0 g/dL (13.0-17.0)
[2025-03-23] MEDS: ACETAMINOPHEN IV (For NPO) 1,000 MG in EMPTY BAG 1 BAG IVPB STA (13:18)
[2025-03-23 13:19] LABS: ALT 30 U/L (4-49); AST 25 U/L (17-59); African American GFR (CKD) >90 (>60 ml/min/1.73 sqM); Albumin 3.1 g/dL (3.5-5.0); Alkaline Phosphatase 51 U/L (38-126); Anion Gap 7 mmol/L; Blood Urea Nitrogen 13 mg/dL (9-20); Calcium 8.6 mg/dL (8.4-10.2); Carbon Dioxide 25 mmol/L (22-30); Chloride 102 mmol/L (98-107); Glucose 87 mg/dL (74-99); Non-African American GFR(CKD) >90 (>60 ml/min/1.73 sqM); Potassium 4.6 mmol/L (3.5-5.1); Sodium 134 mmol/L (137-145); Total Protein 5.6 g/dL (6.3-8.2)
--- NOTE | 2025-03-23 13:29 | XR ---
EXAMINATION TYPE: XR chest 1V portable DATE OF EXAM: 03/23/2025 COMPARISON: 03/13/2025 CLINICAL INDICATION: Male, 25 years old with history of Fever; , TECHNIQUE: XR chest 1V portable views of the chest. FINDINGS: The lungs are clear and there is no pneumothorax, pleural effusion, or focal pneumonia. Borderline c ardiomegaly.. Mild coarsening of the interstitium. Reduced inspiration. IMPRESSION: 1. Coarsening of the interstitium could be related to reduced inspiration correlate clinically to exc lude a bronchitis or infectious interstitial pneumonitis. [facility], , 03/23/2025 1:27 PM
[2025-03-23 13:32] LABS: INR 1.0 (<1.2); Partial Thromboplastin Time 21.3 sec (22.0-30.0); Prothrombin Time 11.2 sec (10.0-12.5)
[2025-03-23] MEDS ORDERED: NALOXONE 0.4 MG/ML 1 ML VIAL IV PRN ×2 (14:31→21:18)
[2025-03-23] MEDS: NOREPINEPHRINE 8 MG in SODIUM CHLORIDE 0.9% 250 ML IV SCH (14:47)
[2025-03-23] MEDS: PIPERACILLIN-TAZOBACTAM 3.375 GM in SODIUM CHLORIDE 0.9% 100 ML IVPB SCH (15:47)
[2025-03-23] MEDS ORDERED: IOPAMIDOL CONTRAST (ORAL USE) VIAL PO PRN (16:09)
[2025-03-23] MEDS ORDERED: HYDROcodone/APAP 5-325MG 1 EACH TAB PO PRN (16:10)
[2025-03-23] MEDS ORDERED: HYDROmorphone 0.5 MG/0.5 ML SYRINGE IVP PRN (16:10)
[2025-03-23] MEDS ORDERED: DEXTROSE 50% SYRINGE 50 ML IVP PRN ×2 (16:11)
[2025-03-23] MEDS: methylPREDNISolone SOD SUCCI 125 MG/2 ML VIAL IV SCH (16:45)
[2025-03-23] MEDS: metroNIDAZOLE-NS PMX 500 MG in SALINE 1 100ML.BAG IVPB SCH (16:54)
[2025-03-23 17:34] LABS: Glucose,Whole Blood 84 mg/dL (70-110)
[2025-03-23] MEDS: INSULIN LISPRO (HumaLOG) 100 UNIT/ML 10 mL VL SQ SCH (17:34)
[2025-03-23 20:29] LABS: Glucose,Whole Blood 126 mg/dL (70-110)
[2025-03-23] MEDS: PANTOPRAZOLE 40 MG/10 ML VIAL IVP SCH (21:00)
[2025-03-23] MEDS: HEPARIN SODIUM,PORCINE 5,000 UNIT/ML 1 ML VIAL SQ SCH (21:00)
--- NOTE | 2025-03-23 22:01 | P.CONS ---
History of Present Illness - Reason for Consult Consult date: 03/23/25 Sepsis Requesting physician: Kun Quezada - Chief Complaint Weakness and vomiting x 1 day - History of Present Illness Patient is a 25-year-old male with a past medical history significant for ulcerative colitis recent admission to the hospital with a fever and has evidence of colitis on the CT concerning for possible exacerbation of his UC stool for C. difficile was negative on that admission and also have stool cultures were negative blood culture negative patient was treated with Zosyn did have improvement and the patient was subsequently discharged home in stable condition on 03/19/2029 patient now presented back to the hospital for evaluation of weakness and lightheadedness apparently the patient was doing well over the last 2 days and he went went to work however this morning he was complaining of feeling lightheaded weak and no energy started feeling sick and did have episodes of vomiting patient denies significant abdominal pain he did have d iarrhea which he is attributed to his UC denies any worsening diarrhea or any blood or mucus in the stools on presentation to the hospital patient was febrile with a temperature of 100.9 F subsequent spike temperature of 101 F patient was tachycardic hypotensive requiring admission to the ICU but not hypoxic or need for supplemental oxygen patient was started on Zosyn blood culture has been obtained still abdominal pelvis currently pelvis infectious disease was consulted for further management/sepsis Review of Systems Positive point and negatives has been mentioned in the HPI, complete review of systems was performed and all other systems are negative Past Medical History Past Medical History: No Reported History Additional Past Medical History / Comment(s): colitis History of Any Multi-Drug Resistant Organisms: None Reported Past Surgical History: No Surgical Hx Reported Past Anesthesia/Blood Transfusion Reactions: No Reported Reaction Past Psychological History: Anxiety, Bipolar, Depression Smoking Status: Never smoker Past Alcohol Use History: None Reported Past Drug Use History: None Reported Medications and Allergies Home Medications Medication Instructions Recorded Confirmed Type Acetaminophen Tab [Tylenol] 650 mg PO Q6HR PRN tab 02/06/25 03/23/25 Rx Mesalamine [Lialda] 4.8 gm PO HS@2100 03/13/25 03/23/25 History Amoxic-Pot Clav 875-125Mg 1 tab PO BID 4 Days #8 tab 03/19/25 03/23/25 Rx [Augmentin 875-125] predniSONE See Taper PO DAILY 19 Days #36 tab 03/19/25 03/23/25 Rx Allergies Allergy/AdvReac Type Severity Reaction Status Date / Time No Known Allergies Allergy Verified 03/23/25 17:02 Physical Exam Vitals: Vital Signs Temp Pulse Resp BP Pulse Ox 03/23/25 20:35 88 18 114/57 97 03/23/25 19:03 99.8 F H 67 18 107/50 96 03/23/25 18:55 100.5 F H 75 20 121/48 95 03/23/25 18:45 100.5 F H 86 18 112/67 98 03/23/25 18:35 100.6 F H 72 18 107/56 97 03/23/25 17:55 73 18 103/56 96 03/23/25 17:15 78 20 95/49 97 03/23/25 16:45 99.9 F H 92 22 100/55 97 03/23/25 16:00 67 18 111/48 98 03/23/25 15:40 77 16 95/42 98 03/23/25 14:56 76 22 93/49 96 03/23/25 14:45 101.1 F H 82 22 84/41 94 L 03/23/25 14:15 83 20 82/42 96 03/23/25 13:53 100.2 F H 93 20 91/38 98 03/23/25 13:22 93 20 88/32 99 03/23/25 13:00 92 18 90/33 96 03/23/25 12:15 91 20 99/77 97 03/23/25 11:59 100.9 F H 103 H 20 74/37 99 Intake and Output 03/23/25 03/23/25 03/23/25 06:59 14:59 22:59 Intake Total 334.184 Balance 334.184 Intake: Intake, IV Titration 24.184 Amount Norepinephrine 8 mg In 24.184 Sodium Chloride 0.9% 250 ml @ 0.03 MCG/KG/MIN 8. 689 mls/hr IV .Q24H [facility] Rx#:[id number] Blood Product 310 Unit 310 Other: Weight 149.685 kg 149.685 kg GENERAL DESCRIPTION: Middle age male lying in bed, no distress. No tachypnea or accessory muscle of respiration use. HEENT: Shows Pallor , no scleral icterus. Oral mucous membrane is dry. NECK: Trachea central, no thyromegaly. LUNGS: Unlabored breathing. Clear to auscultation anteriorly. No wheeze or crackle. HEART: S1, S2, regular rate and rhythm. No loud murmur ABDOMEN: Soft, no tenderness ,no guarding or rigidity, EXTREMITIES: No edema of feet. SKIN: No rash, no masses palpable. NEUROLOGICAL: The patient is lethargic but arousable, mood and affect normal. Results CBC & Chem 7: 03/23/25 12:41 03/23/25 12:41 Labs: Abnormal Lab Results - Last 24 Hours (Table) 03/23/25 03/23/25 03/23/25 Range/Units 12:41 12:41 12:41 WBC 15.36 H (4.50-10.00) 10*3/uL RBC 2.72 L (4.40-5.60) 10*6/uL Hgb 7.0 L D (13.0-17.0) g/dL Hct 22.1 L (39.6-50.0) % MCH 25.7 L (27.0-32.0) pg MCHC 31.7 L (32.0-37.0) g/dL Plt Count 448 H (140-440) 10*3/uL Immature Gran # 0.25 H (0.00-0.04) 10*3/uL Neutrophils # 12.28 H (1.80-7.70) 10*3/uL Monocytes # 1.48 H (0.20-1.00) 10*3/uL Eosinophils # 0.00 L (0.04-0.35) 10*3/uL APTT 21.3 L (22.0-30.0) sec Sodium 134 L (137-145) mmol/L POC Glucose (mg/dL) (70-110) mg/dL Plasma Lactic Acid Dain (0.7-2.0) mmol/L Total Protein 5.6 L (6.3-8.2) g/dL Albumin 3.1 L (3.5-5.0) g/dL Crossmatch 03/23/25 03/23/25 03/23/25 Range/Units 12:41 16:29 16:29 WBC (4.50-10.00) 10*3/uL RBC (4.40-5.60) 10*6/uL Hgb (13.0-17.0) g/dL Hct (39.6-50.0) % MCH (27.0-32.0) pg MCHC (32.0-37.0) g/dL Plt Count (140-440) 10*3/uL Immature Gran # (0.00-0.04) 10*3/uL Neutrophils # (1.80-7.70) 10*3/uL Monocytes # (0.20-1.00) 10*3/uL Eosinophils # (0.04-0.35) 10*3/uL APTT (22.0-30.0) sec Sodium (137-145) mmol/L POC Glucose (mg/dL) (70-110) mg/dL Plasma Lactic Acid Dain 2.7 H* 2.4 H* (0.7-2.0) mmol/L Total Protein (6.3-8.2) g/dL Albumin (3.5-5.0) g/dL Crossmatch See Detail 03/23/25 Range/Units 20:28 WBC (4.50-10.00) 10*3/uL RBC (4.40-5.60) 10*6/uL Hgb (13.0-17.0) g/dL Hct (39.6-50.0) % MCH (27.0-32.0) pg MCHC (32.0-37.0) g/dL Plt Count (140-440) 10*3/uL Immature Gran # (0.00-0.04) 10*3/uL Neutrophils # (1.80-7.70) 10*3/uL Monocytes # (0.20-1.00) 10*3/uL Eosinophils # (0.04-0.35) 10*3/uL APTT (22.0-30.0) sec Sodium (137-145) mmol/L POC Glucose (mg/dL) 126 H (70-110) mg/dL Plasma Lactic Acid Dain (0.7-2.0) mmol/L Total Protein (6.3-8.2) g/dL Albumin (3.5-5.0) g/dL Crossmatch Assessment and Plan (1) Colitis Current Visit: No Status: Acute Code(s): K52.9 - NONINFECTIVE GASTROENTERITIS AND COLITIS, UNSPECIFIED SNOMED Code(s): 45925526 (2) Sepsis Current Visit: No Status: Acute Code(s): A41.9 - SEPSIS, UNSPECIFIED ORGANISM SNOMED Code(s): 52592171 Plan: 1patient presented hospital with sepsis in this patient who did have a fever tachycardia hypotension elevated white count, elevated lactic acid meeting criteria for SIRS //sepsis source likely abdominal in this patient who did have a history of UC and recently to hospital with colitis will require further enteric gram-negative both aerobes and anaerobes 2-await CT of abdominal pelvis with oral contrast 3-we will check a stool for C. difficile and stool culture 4-patient empirically treated with Zosyn 3.375 g every 8 hours along with a fluid and pressor support Family at the bedside question answered We will follow on clinical condition and cultures to further adjust medication if needed Thank you for this consultation we will follow the patient along with you Dictation was produced using [employer] dictation software. please excuse any grammatical, word or spelling errors. Time with Patient: Greater than 30
--- NOTE | 2025-03-24 00:36 | CT ---
EXAM: CT Abdomen and Pelvis Without Intravenous Contrast CLINICAL HISTORY: ITS.REASON CT Reason: mckeon colitis TECHNIQUE: Axial computed tomography images of the abdomen and pelvis without intravenous contrast. CTDI is 30.5 mGy and DLP is 2005.4 mGy-cm. This CT exam was performed using one or more of the following dose reduction techniques: automated exposure control, adjustment of the mA and/or kV according to patient size, and/or use of iterative reconstruction technique. COMPARISON: No relevant prior studies available. FINDINGS: Lung bases: Atelectasis at the lung bases. ABDOMEN: Liver: Unremarkable. Gallbladder and bile ducts: Unremarkable. No calcified stones. No ductal dilation. Pancreas: Unremarkable. No ductal dilation. Spleen: Unremarkable. No splenomegaly. Adrenals: Unremarkable. No mass. Kidneys and ureters: Unremarkable. No obstructing stones. No hydronephrosis. Stomach and bowel: Wall thickening of the colon, concerning for pancolitis. Minimal pericolonic fat stranding. No obstruction. PELVIS: Appendix: No findings to suggest acute appendicitis. Bladder: Unremarkable. No stones. Reproductive: Unremarkable as visualized. ABDOMEN and PELVIS: Intraperitoneal space: Unremarkable. No free air. No significant fluid collection. Bones/joints: No acute fracture. No dislocation. Soft tissues: Unremarkable. Vasculature: Unremarkable. No abdominal aortic aneurysm. Lymph nodes: Unremarkable. No enlarged lymph nodes. IMPRESSION: Wall thickening of the colon, concerning for pancolitis. Minimal pericolonic fat stranding.
--- NOTE | 2025-03-24 00:48 | P.CNPUL ---
History of Present Illness Consult date: 03/24/25 Requesting physician: Joo Cox Reason for consult: other (ICU management) Chief complaint: Lethargy, fever, weakness History of present illness: Patient is a 25-year-old male with past medical history significant for recently diagnosed inflammatory bowel disease. Did have a colonoscopy on 02/04/2025 for chronic diarrhea with bloody mucus in stool for about 1 month. Findings remarkable for pancolitis with mucosal erythema, friability, granularity with exudates and spontaneous bleeding noted throughout the whole colon. Findings concerning for ulcerative colitis. Biopsies were taken and compatible with inflammatory bowel disease. He was started on mesalamine. More recently, ho spitalized earlier this month February 11 with acute flareup of his UC. Abdominal CT from March 13 remarkable for liquid stool suggesting diarrhea and long segment wall thickening of the colon suggestive of infectious or inflammatory colitis. No pericolic abscesses or fistulas. No free air. No bowel obstructions. He started on IV steroids and discharged on 03/19/2025 with prednisone taper and antibiotics. He returns to the emergency department yesterday afternoon after being discharged for approximately 4 days. He started his mesalamine back up on Saturday. He went back to work on Saturday. Started feeling lightheaded, increasing lethargic. Intermittent fevers. His mother checked his blood pressure which was reportedly low. On arrival to the emergency department his blood pressure was 74/37 mmHg. Lactic 2.7. Febrile with a Tmax of 101.1 F. Leukocytosis on CBC. Hemoglobin only 7 g/dL. He was fluid bolused with 3 L of lactated Ringer's. Subsequently, started on low-dose norepinephrine for blood pressure support. Remaining workup consistent of a chest x-ray showing coarse interstitial likely related to reduced inspiratory effort. Patient has no pulmonary complaints. Abdominal CT is pending. Labs including a CBC with a WBC count of 15.36, hemoglobin 7 g/dL, platelets 448. CMP grossly unremarkable, electrolytes WDL, creatinine 0.83, glucose 126. Lactic is now down to 1.3. Patient currently being seen in the intensive care unit. He is resting comfortably on room air. No acute distress. Was having approximately 5-6 bowel movements for the last several days intermittent loose versus liquid stools. No ramos blood. Admits to some nausea and intermittent vomiting that was watery and then bile. No hematemesis. No further bowel movements or vomiting since his hospitalization. Abdomen is not particularly tender. Norepinephrine is infusing at 0.02 mcg/kg/min. Lactated Ringer's infusing at 130 mL/h. He was empirically placed on a combination of Zosyn and Flagyl. Review of Systems Constitutional: Reports chills, Reports fatigue, Reports fever, Reports lethargy, Reports poor appetite, Denies sweats, Denies weight gain, Denies weight loss Ears, nose, mouth and throat: Reports headache, Denies dysphagia, Denies nasal congestion, Denies nasal discharge, Denies post-nasal drip, Denies sinus pain, Denies sinus pressure, Denies sore throat Cardiovascular: Denies chest pain, Denies leg edema, Denies lightheadedness, Denies orthopnea, Denies palpitations, Denies paroxysmal nocturnal dyspnea, Denies syncope Respiratory: Denies congestion, Denies cough, Denies cough with sputum, Denies dyspnea, Denies hemoptysis Gastrointestinal: Reports as per HPI Genitourinary: Denies dysuria, Denies flank pain, Denies hematuria Musculoskeletal: Denies limitation of motion Integumentary: Denies rash Neurological: Denies seizures, Denies syncope Psychiatric: Denies anxiety, Denies depression Past Medical History Past Medical History: No Reported History Additional Past Medical History / Comment(s): colitis History of Any Multi-Drug Resistant Organisms: None Reported Past Surgical History: No Surgical Hx Reported Past Anesthesia/Blood Transfusion Reactions: No Reported Reaction Past Psychological History: Anxiety, Bipolar, Depression Smoking Status: Never smoker Past Alcohol Use History: None Reported Past Drug Use History: None Reported Medications and Allergies Home Medications Medication Instructions Recorded Confirmed Type Acetaminophen Tab [Tylenol] 650 mg PO Q6HR PRN tab 02/06/25 03/23/25 Rx Mesalamine [Lialda] 4.8 gm PO HS@2100 03/13/25 03/23/25 History Amoxic-Pot Clav 875-125Mg 1 tab PO BID 4 Days #8 tab 03/19/25 03/23/25 Rx [Augmentin 875-125] predniSONE See Taper PO DAILY 19 Days #36 tab 03/19/25 03/23/25 Rx Allergies Allergy/AdvReac Type Severity Reaction Status Date / Time No Known Allergies Allergy Verified 03/23/25 17:02 Physical Exam Vitals: Vital Signs Temp Pulse Resp BP Pulse Ox 03/24/25 00:00 98.1 F 68 0 L 119/59 92 L 03/23/25 23:00 70 0 L 105/59 95 03/23/25 22:00 59 L 20 118/63 96 03/23/25 21:30 98.4 F 64 16 118/63 03/23/25 21:00 82 8 L 118/64 96 03/23/25 20:35 88 18 114/57 97 03/23/25 20:00 64 29 H 102/60 96 03/23/25 19:03 99.8 F H 67 18 107/50 96 03/23/25 19:00 67 34 H 121/48 96 03/23/25 18:55 100.5 F H 75 20 121/48 95 03/23/25 18:45 100.5 F H 86 18 112/67 98 03/23/25 18:35 100.6 F H 72 18 107/56 97 03/23/25 18:00 84 34 H 103/56 100 03/23/25 17:55 73 18 103/56 96 03/23/25 17:15 78 20 95/49 97 03/23/25 17:00 71 33 H 84/47 84 L 03/23/25 16:45 99.9 F H 92 22 100/55 97 03/23/25 16:00 71 35 H 103/57 98 03/23/25 15:40 77 16 95/42 98 03/23/25 15:00 82 29 H 93/49 97 03/23/25 14:56 76 22 93/49 96 03/23/25 14:45 101.1 F H 82 22 84/41 94 L 03/23/25 14:15 83 20 82/42 96 03/23/25 14:00 89 30 H 91/38 97 03/23/25 13:53 100.2 F H 93 20 91/38 98 03/23/25 13:22 90 32 H 54/40 99 03/23/25 13:00 92 18 90/33 96 03/23/25 12:15 91 20 99/77 97 03/23/25 11:59 100.9 F H 103 H 20 74/37 99 Intake and Output 03/23/25 03/23/25 03/24/25 14:59 22:59 06:59 Intake Total 724.184 536.130 Output Total 600 500 Balance 124.184 36.130 Intake: IV 390 460 Lactated Ringers 1,000 ml 390 260 @ 130 mls/hr IV .Q7H42M [facility] Rx#:[id number] Piperacillin-Tazobactam 3 100 .375 gm In Sodium Chloride 0.9% 100 ml @ 25 mls/hr IVPB Q8HR [facility] Rx# :[id number] metroNIDAZOLE-NS PMX 500 100 mg In Saline 1 100ml.bag @ 100 mls/hr IVPB Q8HR [facility] Rx#:[id number] Intake, IV Titration 24.184 76.130 Amount Norepinephrine 8 mg In 24.184 76.130 Sodium Chloride 0.9% 250 ml @ 0.03 MCG/KG/MIN 8. 689 mls/hr IV .Q24H [facility] Rx#:[id number] Blood Product 310 Rc As-1 Unit 310 [id number] Output: Urine 600 500 Other: # Bowel Movements 1 Weight 149.685 kg 149.685 kg GENERAL EXAM: Alert, 25-year-old obese male, comfortable in no apparent dis tress. HEAD: Normocephalic and atraumatic EYES: Normal reaction of pupils, equal size. NOSE: Clear with pink turbinates. THROAT: No erythema or exudates. NECK: No masses, no JVD. CHEST: No chest wall deformity. LUNGS: Equal air entry with no crackles, wheeze, rhonchi or dullness. On room air. No conversational dyspnea or accessory muscle use.. CVS: S1 and S2 normal with no audible murmur, regular rhythm. No extra heart sounds ABDOMEN: No hepatosplenomegaly, active bowel sounds, no guarding or rigidity. SPINE: No scoliosis or deformity SKIN: No rashes CENTRAL NERVOUS SYSTEM: No focal deficits, tone is normal in all 4 extremities. EXTREMITIES: There is no peripheral edema, clubbing, or cyanosis. Peripheral pulses are intact. Results - Laboratory Findings CBC and BMP: 03/23/25 12:41 03/23/25 12:41 PT/INR, D-dimer PT 11.2 sec (10.0-12.5) 03/23/25 12:41 INR 1.0 (<1.2) 03/23/25 12:41 Abnormal lab findings: Abnormal Labs 03/23/25 03/23/25 03/23/25 12:41 12:41 12:41 WBC 15.36 H RBC 2.72 L Hgb 7.0 L D Hct 22.1 L MCH 25.7 L MCHC 31.7 L Plt Count 448 H Immature Gran # 0.25 H Neutrophils # 12.28 H Monocytes # 1.48 H Eosinophils # 0.00 L APTT 21.3 L Sodium 134 L POC Glucose (mg/dL) Plasma Lactic Acid Dain Total Protein 5.6 L Albumin 3.1 L Crossmatch 03/23/25 03/23/25 03/23/25 12:41 16:29 16:29 WBC RBC Hgb Hct MCH MCHC Plt Count Immature Gran # Neutrophils # Monocytes # Eosinophils # APTT Sodium POC Glucose (mg/dL) Plasma Lactic Acid Dain 2.7 H* 2.4 H* Total Protein Albumin Crossmatch See Detail 03/23/25 20:28 WBC RBC Hgb Hct MCH MCHC Plt Count Immature Gran # Neutrophils # Monocytes # Eosinophils # APTT Sodium POC Glucose (mg/dL) 126 H Plasma Lactic Acid Dain Total Protein Albumin Crossmatch - Diagnostic Findings Chest x-ray: image reviewed Assessment and Plan Assessment: Sepsis, septic shock, refractory to fluid resuscitation, currently on low-dose norepinephrine Acute flareup of ulcerative colitis, restarted on IV Solu-Medrol Anemia, secondary to above Acute leukocytosis Febrile illness History of inflammatory bowel disease/ulcerative colitis, Did have a colonoscopy on 02/04/2025 for chronic diarrhea with bloody mucus in stool for about 1 month. Findings remarkable for pancolitis with mucosal erythema, friability, granularity with exudates and spontaneous bleeding noted throughout the whole colon. Findings concerning for ulcerative colitis. Biopsies were taken and compatible with inflammatory bowel disease. He was started on mesalamine. Recent UC flare earlier this month, discharged on prednisone taper and antibiotics. Morbid obesity, BMI 46 kg/m Plan: Continues to require low-dose norepinephrine, currently at 0.02 mcg/kg/min Continue IV maintenance fluids Abdominal CT is pending Started on IV Solu-Medrol 60 mg Q6 Started on empiric antibiotics in the form of Zosyn and Flagyl Blood culture sent Stool cultures and C. difficile ordered N.p.o. Continue IV Protonix ID is consulted GI is consulted We will continue to follow the patient while in the intensive care unit I have personally seen and examined the patient, performed the documentation and the assessment and plan as written. Number of minutes spent on the visit:25 This dictation was produced using [employer] dictation software please excuse grammatical errors Time with Patient: Greater than 30
[2025-03-24 06:24] LABS: Basophils # (A) 0.00 10*3/uL (0.00-0.10); Basophils % (A) 0.0 %; Eosinophils # (A) 0.00 10*3/uL (0.04-0.35); Eosinophils % (A) 0.0 %; HCT 22.9 % (39.6-50.0); HGB 7.1 g/dL (13.0-17.0); Lymphocytes # (A) 0.47 10*3/uL (0.90-5.00); Lymphocytes % (A) 4.6 %; MCH 25.4 pg (27.0-32.0); MCHC 31.0 g/dL (32.0-37.0); MCV 82.1 fL (80.0-97.0); Monocytes # (A) 0.12 10*3/uL (0.20-1.00); Monocytes % (A) 1.2 %; Neutrophils # (A) 9.46 10*3/uL (1.80-7.70); Neutrophils % (A) 93.1 %; Platelet Count 441 10*3/uL (140-440); RBC 2.79 10*6/uL (4.40-5.60); RDW 16.8 % (11.5-14.5); WBC 10.16 10*3/uL (4.50-10.00)
[2025-03-24 06:28] LABS: Glucose,Whole Blood 142 mg/dL (70-110)
[2025-03-24 06:39] LABS: ALT 23 U/L (4-49); AST 19 U/L (17-59); African American GFR (CKD) >90 (>60 ml/min/1.73 sqM); Albumin 2.7 g/dL (3.5-5.0); Alkaline Phosphatase 51 U/L (38-126); Anion Gap 4 mmol/L; Blood Urea Nitrogen 12 mg/dL (9-20); Calcium 8.7 mg/dL (8.4-10.2); Carbon Dioxide 26 mmol/L (22-30); Chloride 104 mmol/L (98-107); Glucose 136 mg/dL (74-99); Non-African American GFR(CKD) >90 (>60 ml/min/1.73 sqM); Potassium 4.5 mmol/L (3.5-5.1); Sodium 134 mmol/L (137-145); Total Protein 5.2 g/dL (6.3-8.2)
--- NOTE | 2025-03-24 09:27 | HP ---
HISTORY AND PHYSICAL CHIEF COMPLAINT: Weakness, fever, vomiting, diarrhea. HISTORY OF PRESENT ILLNESS: This 25-year-old gentleman with a past medical history of multiple medical problems including significant ulcerative colitis. The patient was having recent possible mckeon colitis and was having sepsis. The patient was discharged also on a tapering dose of steroids. The patient complaining of weakness, fever, and the patient has multiple medical issues. The patient came to [facility] and was admitted for further evaluation and treatment. White count is elevated. Hemoglobin 7, the previous hemoglobin was 8.5, sodium is 134, lactic acid 2.7. There is no history of fever, rigors, chills at this time. PAST MEDICAL HISTORY: History of ulcerative colitis, history of anxiety, bipolar, depression. Rest of the chart and rest of the history is also reviewed. CURRENT MEDICATIONS: Reviewed include prednisone. Rest of medications reviewed. ALLERGIES: None. FAMILY HISTORY: No history of heart disease or strokes in the family. SOCIAL HISTORY: No history of smoking, alcohol. REVIEW OF SYSTEMS: Fourteen-point review is negative. PHYSICAL EXAMINATION: VITAL SIGNS: Pulse 76, blood pressure 93/40, respirations 20. HEENT: Conjunctivae normal. NECK: No jugular venous distention. CARDIOVASCULAR: S1, S2. RESPIRATION: Breath sounds diminished at the bases. Scattered rhonchi and crackles. ABDOMEN: Soft, mild diffuse discomfort. No guarding. No rigidity, no mass palpable. LEGS: No edema. No swelling. LABORATORY DATA: WBC 15.2. Rest of the labs as noted. ASSESSMENT: 1. Acute severe pancolitis, recurrent with possible sepsis, present on admission. 2. Anemia, acute on chronic blood loss. 3. Elevated WBC, possibly secondary to sepsis. 4. Hyponatremia. 5. Elevated lactic acid and lactic acidemia. 6. Anxiety, bipolar, depression. RECOMMENDATION: This 25-year-old gentleman presented with multiple complex medical issues. We will monitor the patient closely. Recommend broad-spectrum IV antibiotics. Gastroenterology, Infectious Disease evaluation, obtain cultures, CT scan of the abdomen. Cautious fluids, guarded prognosis because of multiple transfusion. Guarded prognosis because of multiple complex medical conditions. Further recommendations to follow. See orders for details. The chest x-ray showed some interstitial changes. MMODL / IJN: [id number] /
[2025-03-24 11:21] LABS: Glucose,Whole Blood 136 mg/dL (70-110)
--- NOTE | 2025-03-24 11:45 | P.CONS ---
History of Present Illness - Reason for Consult Consult date: 03/24/25 anemia Requesting physician: Joo Cox - Chief Complaint Ill feeling, nausea and vomiting - History of Present Illness This a pleasant 25-year-old male recently hospitalized for sepsis and viral infection who returned to the emergency department yesterday with fever chills and vomiting. Patient was just discharged about 4 days ago and apparently yesterday started feeling little bit dizzy and was noted to have low blood pressure. They came in for further evaluation. He was recently diagnosed with ulcerative colitis and underwent colonoscopy 02/04/2025, he was discharged on prednisone taper and started on mesalamine. He states as far as his colitis goes that has improved. He has about 4-5 bowel movements a day no blood no abdominal pain. Patient is admitted to the intensive care unit currently on Levophed and was started on Flagyl and Zosyn. He had been on prednisone 20 mg prior to coming into this last hospitalization and was discharged on prednisone 30 mg daily. He was initially started on Solu-Medrol 60 mg every 8 hours on this admission. Today's labs WBC 10.1 hemoglobin 7.1 platelet count 441,000 sodium 134 potassium 4.5 BUN 12 creatinine 0.6 total bilirubin 0.7 AST 19 ALT 23 alkaline phosphatase 51 Review of Systems REVIEW OF SYSTEMS: CARDIOPULMONARY: No chest pain or shortness of breath. Gastrointestinal: No abdominal pain. Positive nausea and vomiting. No hematemesis, coffee-ground emesis. No rectal bleeding, or melena. GENITOURINARY: No dysuria or hematuria. MUSCULOSKELETAL: Reports normal range of motion. SKIN: No rashes. No jaundice. ENDOCRINE: No chills, fevers. No excessive weight gain or loss. No polydipsia or polyuria. PSYCHIATRIC: Unremarkable. NEUROLOGY: No change in mental status. Denies dizziness, headache. ENT: Vision unremarkable. CONSTITUTIONAL: Fever, chills, dizziness. Past Medical History Past Medical History: No Reported History Additional Past Medical History / Comment(s): colitis History of Any Multi-Drug Resistant Organisms: None Reported Past Surgical History: No Surgical Hx Reported Past Anesthesia/Blood Transfusion Reactions: No Reported Reaction Past Psychological History: Anxiety, Bipolar, Depression Smoking Status: Never smoker Past Alcohol Use History: None Reported Past Drug Use History: None Reported Medications and Allergies Home Medications Medication Instructions Recorded Confirmed Type Acetaminophen Tab [Tylenol] 650 mg PO Q6HR PRN tab 02/06/25 03/23/25 Rx Mesalamine [Lialda] 4.8 gm PO HS@2100 03/13/25 03/23/25 History Amoxic-Pot Clav 875-125Mg 1 tab PO BID 4 Days #8 tab 03/19/25 03/23/25 Rx [Augmentin 875-125] predniSONE See Taper PO DAILY 19 Days #36 tab 03/19/25 03/23/25 Rx Allergies Allergy/AdvReac Type Severity Reaction Status Date / Time No Known Allergies Allergy Verified 03/23/25 17:02 Physical Exam Vitals: Vital Signs Temp Pulse Resp BP Pulse Ox 03/24/25 06:00 49 L 99/46 95 03/24/25 05:00 71 12 112/70 93 L 03/24/25 04:00 62 12 102/49 95 03/24/25 03:00 55 L 14 96/55 94 L 03/24/25 02:00 62 15 92/48 96 03/24/25 01:00 73 12 96/63 96 03/24/25 00:09 71 12 106/54 93 L 03/24/25 00:00 98.1 F 68 0 L 119/59 92 L 03/23/25 23:00 70 0 L 105/59 95 03/23/25 22:00 59 L 20 118/63 96 03/23/25 21:30 98.4 F 64 16 118/63 03/23/25 21:00 82 12 118/64 96 03/23/25 20:35 88 18 114/57 97 03/23/25 20:00 64 14 102/60 96 03/23/25 19:03 99.8 F H 67 18 107/50 96 03/23/25 19:00 67 14 121/48 96 03/23/25 18:55 100.5 F H 75 20 121/48 95 03/23/25 18:45 100.5 F H 86 18 112/67 98 03/23/25 18:35 100.6 F H 72 18 107/56 97 03/23/25 18:00 84 34 H 103/56 100 03/23/25 17:55 73 18 103/56 96 03/23/25 17:15 78 20 95/49 97 03/23/25 17:00 71 33 H 84/47 84 L 03/23/25 16:45 99.9 F H 92 22 100/55 97 03/23/25 16:00 71 35 H 103/57 98 03/23/25 15:40 77 16 95/42 98 03/23/25 15:00 82 29 H 93/49 97 03/23/25 14:56 76 22 93/49 96 03/23/25 14:45 101.1 F H 82 22 84/41 94 L 03/23/25 14:15 83 20 82/42 96 03/23/25 14:00 89 30 H 91/38 97 03/23/25 13:53 100.2 F H 93 20 91/38 98 03/23/25 13:22 90 32 H 54/40 99 03/23/25 13:00 92 18 90/33 96 03/23/25 12:15 91 20 99/77 97 03/23/25 11:59 100.9 F H 103 H 20 74/37 99 Intake and Output 03/23/25 03/23/25 03/24/25 14:59 22:59 06:59 Intake Total 326.968 8126.032 Output Total 600 1000 Balance 124.184 344.032 Intake: IV 390 1240 Lactated Ringers 1,000 ml 390 1040 @ 130 mls/hr IV .Q7H42M [facility] Rx#:[id number] Piperacillin-Tazobactam 3 100 .375 gm In Sodium Chloride 0.9% 100 ml @ 25 mls/hr IVPB Q8HR [facility] Rx# :[id number] metroNIDAZOLE-NS PMX 500 100 mg In Saline 1 100ml.bag @ 100 mls/hr IVPB Q8HR [facility] Rx#:[id number] Intake, IV Titration 24.184 104.032 Amount Norepinephrine 8 mg In 24.184 104.032 Sodium Chloride 0.9% 250 ml @ 0.03 MCG/KG/MIN 8. 689 mls/hr IV .Q24H [facility] Rx#:[id number] Blood Product 310 Rc As-1 Unit 310 [id number] Output: Urine 600 1000 Other: Voiding Method Urinal Urinal # Voids 1 # Bowel Movements 1 1 Weight 149.685 kg 149.685 kg 149.1 kg General appearance: The patient is alert, oriented, appears in no acute distress. HET: Head is normocephalic and atraumatic. Conjunctiva pink. Sclera anicteric. Neck: Supple without lymphadenopathy. Trachea midline. Heart: Regular. Lungs: Equal expansion, normal respiratory effort. Abdomen: Soft, nontender, nondistended. Skin: No rashes. No jaundice. Extremities: Normal skin color and turgor. No pedal edema. Neurological: No focal deficits. Alert and oriented x3. Results CBC & Chem 7: 03/24/25 05:26 03/24/25 05:26 Labs: Abnormal Lab Results - Last 24 Hours (Table) 03/23/25 03/23/25 03/23/25 Range/Units 12:41 12:41 12:41 WBC 15.36 H (4.50-10.00) 10*3/uL RBC 2.72 L (4.40-5.60) 10*6/uL Hgb 7.0 L D (13.0-17.0) g/dL Hct 22.1 L (39.6-50.0) % MCH 25.7 L (27.0-32.0) pg MCHC 31.7 L (32.0-37.0) g/dL Plt Count 448 H (140-440) 10*3/uL Immature Gran # 0.25 H (0.00-0.04) 10*3/uL Neutrophils # 12.28 H (1.80-7.70) 10*3/uL Lymphocytes # (0.90-5.00) 10*3/uL Monocytes # 1.48 H (0.20-1.00) 10*3/uL Eosinophils # 0.00 L (0.04-0.35) 10*3/uL APTT 21.3 L (22.0-30.0) sec Sodium 134 L (137-145) mmol/L Creatinine (0.66-1.25) mg/dL Glucose (74-99) mg/dL POC Glucose (mg/dL) (70-110) mg/dL Plasma Lactic Acid Dain (0.7-2.0) mmol/L Total Protein 5.6 L (6.3-8.2) g/dL Albumin 3.1 L (3.5-5.0) g/dL Crossmatch 03/23/25 03/23/25 03/23/25 Range/Units 12:41 16:29 16:29 WBC (4.50-10.00) 10*3/uL RBC (4.40-5.60) 10*6/uL Hgb (13.0-17.0) g/dL Hct (39.6-50.0) % MCH (27.0-32.0) pg MCHC (32.0-37.0) g/dL Plt Count (140-440) 10*3/uL Immature Gran # (0.00-0.04) 10*3/uL Neutrophils # (1.80-7.70) 10*3/uL Lymphocytes # (0.90-5.00) 10*3/uL Monocytes # (0.20-1.00) 10*3/uL Eosinophils # (0.04-0.35) 10*3/uL APTT (22.0-30.0) sec Sodium (137-145) mmol/L Creatinine (0.66-1.25) mg/dL Glucose (74-99) mg/dL POC Glucose (mg/dL) (70-110) mg/dL Plasma Lactic Acid Dain 2.7 H* 2.4 H* (0.7-2.0) mmol/L Total Protein (6.3-8.2) g/dL Albumin (3.5-5.0) g/dL Crossmatch See Detail 03/23/25 03/24/25 03/24/25 Range/Units 20:28 05:26 05:26 WBC 10.16 H (4.50-10.00) 10*3/uL RBC 2.79 L (4.40-5.60) 10*6/uL Hgb 7.1 L (13.0-17.0) g/dL Hct 22.9 L (39.6-50.0) % MCH 25.4 L (27.0-32.0) pg MCHC 31.0 L (32.0-37.0) g/dL Plt Count 441 H (140-440) 10*3/uL Immature Gran # 0.11 H (0.00-0.04) 10*3/uL Neutrophils # 9.46 H (1.80-7.70) 10*3/uL Lymphocytes # 0.47 L (0.90-5.00) 10*3/uL Monocytes # 0.12 L (0.20-1.00) 10*3/uL Eosinophils # 0.00 L (0.04-0.35) 10*3/uL APTT (22.0-30.0) sec Sodium 134 L (137-145) mmol/L Creatinine 0.65 L (0.66-1.25) mg/dL Glucose 136 H (74-99) mg/dL POC Glucose (mg/dL) 126 H (70-110) mg/dL Plasma Lactic Acid Dain (0.7-2.0) mmol/L Total Protein 5.2 L (6.3-8.2) g/dL Albumin 2.7 L (3.5-5.0) g/dL Crossmatch 03/24/25 Range/Units 06:27 WBC (4.50-10.00) 10*3/uL RBC (4.40-5.60) 10*6/uL Hgb (13.0-17.0) g/dL Hct (39.6-50.0) % MCH (27.0-32.0) pg MCHC (32.0-37.0) g/dL Plt Count (140-440) 10*3/uL Immature Gran # (0.00-0.04) 10*3/uL Neutrophils # (1.80-7.70) 10*3/uL Lymphocytes # (0.90-5.00) 10*3/uL Monocytes # (0.20-1.00) 10*3/uL Eosinophils # (0.04-0.35) 10*3/uL APTT (22.0-30.0) sec Sodium (137-145) mmol/L Creatinine (0.66-1.25) mg/dL Glucose (74-99) mg/dL POC Glucose (mg/dL) 142 H (70-110) mg/dL Plasma Lactic Acid Dain (0.7-2.0) mmol/L Total Protein (6.3-8.2) g/dL Albumin (3.5-5.0) g/dL Crossmatch Comments: CT abdomen pelvis impression reports wall thickening of the colon, concerning for pancolitis. Minimal pericolonic fat stranding. Assessment and Plan (1) Ulcerative colitis Narrative/Plan: 25-year-old male recently diagnosed with ulcerative colitis by colonoscopy on 02/04/2025. Was started on IV steroids while in the hospital and then discharged home on prednisone 40 mg taper and was started on mesalamine once seen for follow-up. Patient recently admitted with sepsis thought to have viral infection. Now readmitted with anemia and hypotension. Seems symptoms for ulcerative colitis are actually improved from when he was diagnosed. Patient without any bloody bowel movements, improvement in number of bowel movements daily. Recommend continuing steroids, will decrease Solu-Medrol to 20 mg every 8 hours. Current Visit: Yes Status: Acute Code(s): K51.90 - ULCERATIVE COLITIS, UNSPECIFIED, WITHOUT COMPLICATIONS SNOMED Code(s): 79907357 (2) Anemia Current Visit: Yes Status: Acute Code(s): D64.9 - ANEMIA, UNSPECIFIED SNOMED Code(s): 866361428 (3) Hypotension Current Visit: Yes Status: Acute Code(s): I95.9 - HYPOTENSION, UNSPECIFIED SNOMED Code(s): 58551454 Plan: 1. Continue symptomatic and supportive care 2. Clear liquid diet 3. Decrease Solu-Medrol to 20 mg every 8 hours 4. Antiemetics as needed 5. No plans on endoscopic evaluation patient had recent colonoscopy with new diagnosis of ulcerative colitis 6. Daily CBC, transfuse for hemoglobin less than 7 7. Protonix 40 mg daily for GI prophylaxis 8. Rest of medical management per installer soft top/primary team Thank you for this consultation, we will continue to follow. Dr. Samreen Antunez I agree with the dictator's note, documented as a scribe by Bhumi Mccracken.
--- NOTE | 2025-03-24 15:33 | P.GSCN ---
History of Present Illness Consult date: 03/24/25 History of present illness: CHIEF COMPLAINT: Ill feeling with nausea and vomiting HISTORY OF PRESENT ILLNESS: This is a 25-year-old male with recent diagnosis in January of ulcerative colitis. He had recent hospitalization with sepsis and viral infection. He was just recently discharged on Saturday. Patient reports that he started not to feel well again having nausea and vomiting and some abdominal pain he was also hypotensive and having fevers. Patient does report having diarrhea which is not new for him. There has been occasional blood. Currently admitted to the ICU. He is CT scan had showed evidence of pancolitis. He is on antibiotics and steroids. GI service is following. Surgical service was consulted for colitis. Patient reports that he is starting to feel better. He is tolerating clear liquids. PAST MEDICAL HISTORY: Ulcerative colitis, anxiety, bipolar, depression PAST SURGICAL HISTORY: None MEDICATIONS: See below ALLERGIES: See below SOCIAL HISTORY: No illicit drug use. REVIEW OF SYSTEMS: CONSTITUTIONAL: Denies fever or chills. HEENT: Denies blurred vision, vision changes, or eye pain. Denies hemoptysis CARDIOVASCULAR: Denies chest pain or pressure. RESPIRATORY: No shortness of breath. GASTROINTESTINAL: See HPI for pertinent findings HEMATOLOGIC: Denies bleeding disorders. GENITOURINARY: Denies any blood in urine or increased urinary frequency. SKIN: Denies pruitis. Denies rash. PHYSICAL EXAM: VITAL SIGNS: Reviewed GENERAL: Well-developed in no acute distress. HEENT: No sclera icterus. Extraocular movements grossly intact. Moist buccal mucosa. Head is atraumatic, normocephalic. No nasal drainage. ABDOMEN: Soft. Obese. Nondistended. Nontender NEUROLOGIC: Alert and oriented. Cranial nerves II through XII grossly intact. LABORATORY DATA: WBC 15.36-10.16 Hgb 7.1 platelets 441 Sodium 134 potassium 4.5 creatinine 0.65 Lactic acid 2.7 down to 1.3 IMAGING: CT scan abdomen pelvis reports wall thickening of the colon concerning for pancolitis. Minimal pericolonic fat stranding ASSESSMENT: 1. Ulcerative colitis 2. Sepsis PLAN: - Surgical service will remain on standby - Continue to monitor - Continue steroids per GI service - Continue ICU management and supportive care Physician Solar Mechanical Engineer note has been reviewed by physician. Signing provider agrees with the documented findings, assessment, and plan of care. Past Medical History Past Medical History: No Reported History Additional Past Medical History / Comment(s): colitis History of Any Multi-Drug Resistant Organisms: None Reported Past Surgical History: No Surgical Hx Reported Past Anesthesia/Blood Transfusion Reactions: No Reported Reaction Past Psychological History: Anxiety, Bipolar, Depression Smoking Status: Never smoker Past Alcohol Use History: None Reported Past Drug Use History: None Reported Medications and Allergies Home Medications Medication Instructions Recorded Confirmed Type Acetaminophen Tab [Tylenol] 650 mg PO Q6HR PRN tab 02/06/25 03/23/25 Rx Mesalamine [Lialda] 4.8 gm PO HS@2100 03/13/25 03/23/25 History Amoxic-Pot Clav 875-125Mg 1 tab PO BID 4 Days #8 tab 03/19/25 03/23/25 Rx [Augmentin 875-125] predniSONE See Taper PO DAILY 19 Days #36 tab 03/19/25 03/23/25 Rx Allergies Allergy/AdvReac Type Severity Reaction Status Date / Time No Known Allergies Allergy Verified 03/23/25 17:02 Surgical - Exam Vital Signs Temp Pulse Resp BP Pulse Ox 100.9 F H 103 H 20 74/37 99 03/23/25 11:59 03/23/25 11:59 03/23/25 11:59 03/23/25 11:59 03/23/25 11:59 Results - Labs 03/24/25 05:26 03/24/25 05:26 Abnormal Lab Results - Last 24 Hours (Table) 03/23/25 03/23/25 03/23/25 Range/Units 16:29 16:29 20:28 WBC (4.50-10.00) 10*3/uL RBC (4.40-5.60) 10*6/uL Hgb (13.0-17.0) g/dL Hct (39.6-50.0) % MCH (27.0-32.0) pg MCHC (32.0-37.0) g/dL Plt Count (140-440) 10*3/uL Immature Gran # (0.00-0.04) 10*3/uL Neutrophils # (1.80-7.70) 10*3/uL Lymphocytes # (0.90-5.00) 10*3/uL Monocytes # (0.20-1.00) 10*3/uL Eosinophils # (0.04-0.35) 10*3/uL Sodium (137-145) mmol/L Creatinine (0.66-1.25) mg/dL Glucose (74-99) mg/dL POC Glucose (mg/dL) 126 H (70-110) mg/dL Plasma Lactic Acid Dain 2.4 H* (0.7-2.0) mmol/L Total Protein (6.3-8.2) g/dL Albumin (3.5-5.0) g/dL Crossmatch See Detail 03/24/25 03/24/25 03/24/25 Range/Units 05:26 05:26 06:27 WBC 10.16 H (4.50-10.00) 10*3/uL RBC 2.79 L (4.40-5.60) 10*6/uL Hgb 7.1 L (13.0-17.0) g/dL Hct 22.9 L (39.6-50.0) % MCH 25.4 L (27.0-32.0) pg MCHC 31.0 L (32.0-37.0) g/dL Plt Count 441 H (140-440) 10*3/uL Immature Gran # 0.11 H (0.00-0.04) 10*3/uL Neutrophils # 9.46 H (1.80-7.70) 10*3/uL Lymphocytes # 0.47 L (0.90-5.00) 10*3/uL Monocytes # 0.12 L (0.20-1.00) 10*3/uL Eosinophils # 0.00 L (0.04-0.35) 10*3/uL Sodium 134 L (137-145) mmol/L Creatinine 0.65 L (0.66-1.25) mg/dL Glucose 136 H (74-99) mg/dL POC Glucose (mg/dL) 142 H (70-110) mg/dL Plasma Lactic Acid Dain (0.7-2.0) mmol/L Total Protein 5.2 L (6.3-8.2) g/dL Albumin 2.7 L (3.5-5.0) g/dL Crossmatch 03/24/25 Range/Units 11:20 WBC (4.50-10.00) 10*3/uL RBC (4.40-5.60) 10*6/uL Hgb (13.0-17.0) g/dL Hct (39.6-50.0) % MCH (27.0-32.0) pg MCHC (32.0-37.0) g/dL Plt Count (140-440) 10*3/uL Immature Gran # (0.00-0.04) 10*3/uL Neutrophils # (1.80-7.70) 10*3/uL Lymphocytes # (0.90-5.00) 10*3/uL Monocytes # (0.20-1.00) 10*3/uL Eosinophils # (0.04-0.35) 10*3/uL Sodium (137-145) mmol/L Creatinine (0.66-1.25) mg/dL Glucose (74-99) mg/dL POC Glucose (mg/dL) 136 H (70-110) mg/dL Plasma Lactic Acid Dain (0.7-2.0) mmol/L Total Protein (6.3-8.2) g/dL Albumin (3.5-5.0) g/dL Crossmatch Diabetes panel 03/24/25 03/24/25 Range/Units 05:26 05:26 Sodium 134 L (137-145) mmol/L Potassium 4.5 (3.5-5.1) mmol/L Chloride 104 (98-107) mmol/L Carbon Dioxide 26 (22-30) mmol/L BUN 12 (9-20) mg/dL Creatinine 0.65 L (0.66-1.25) mg/dL Glucose 136 H (74-99) mg/dL Hemoglobin A1c 5.5 (<=6.0) % Calcium 8.7 (8.4-10.2) mg/dL AST 19 (17-59) U/L ALT 23 (4-49) U/L Alkaline Phosphatase 51 (38-126) U/L Total Protein 5.2 L (6.3-8.2) g/dL Albumin 2.7 L (3.5-5.0) g/dL Calcium panel 03/24/25 Range/Units 05:26 Calcium 8.7 (8.4-10.2) mg/dL Albumin 2.7 L (3.5-5.0) g/dL Pituitary panel 03/24/25 Range/Units 05:26 Sodium 134 L (137-145) mmol/L Potassium 4.5 (3.5-5.1) mmol/L Chloride 104 (98-107) mmol/L Carbon Dioxide 26 (22-30) mmol/L BUN 12 (9-20) mg/dL Creatinine 0.65 L (0.66-1.25) mg/dL Glucose 136 H (74-99) mg/dL Calcium 8.7 (8.4-10.2) mg/dL Adrenal panel 03/24/25 Range/Units 05:26 Sodium 134 L (137-145) mmol/L Potassium 4.5 (3.5-5.1) mmol/L Chloride 104 (98-107) mmol/L Carbon Dioxide 26 (22-30) mmol/L BUN 12 (9-20) mg/dL Creatinine 0.65 L (0.66-1.25) mg/dL Glucose 136 H (74-99) mg/dL Calcium 8.7 (8.4-10.2) mg/dL Total Bilirubin 0.7 (0.2-1.3) mg/dL AST 19 (17-59) U/L ALT 23 (4-49) U/L Alkaline Phosphatase 51 (38-126) U/L Total Protein 5.2 L (6.3-8.2) g/dL Albumin 2.7 L (3.5-5.0) g/dL
--- NOTE | 2025-03-24 16:42 | P.CONS ---
History of Present Illness - Reason for Consult Consult date: 03/24/25 - History of Present Illness Patient is a 25-year-old male with ulcerative colitis who presents with progressively worsening diarrhea over the last few days. Hematology oncology has been consulted for evaluation of patient's anemia. Patient was found to have ulcerative colitis in January 2025 with colonoscopy completed at that time. He was started on mesalamine at that time. Following this he was admitted to the hospital March 13 for UC flareup. Abdominal CT suggestive of infectious or inflammatory colitis. He was subsequently discharged on 03/19/2025 on prednisone taper and steroids. Yesterday, patient presented to the ER with worsening nonbloody diarrhea 5-6 episodes per day over the last 4 days. He also felt in creasingly lethargic, and lightheaded. He also attest to some nausea and vomiting during this time. In the emergency room his blood pressure was hypotensive with Tmax of 101.1 F, leukocytosis, hemoglobin 7.0. He was subsequently placed on Levophed and was brought to the ICU. Today, he has no co mplaints of abdominal pain, chest pain, shortness of breath. He continues to feel lethargic however this is beginning to improve. Diarrhea is nonbloody. He has been placed on Zosyn and Flagyl therapy. He has no other complaints at this time. Review of Systems Constitutional: Reports as per HPI Past Medical History Past Medical History: No Reported History Additional Past Medical History / Comment(s): colitis History of Any Multi-Drug Resistant Organisms: None Reported Past Surgical History: No Surgical Hx Reported Past Anesthesia/Blood Transfusion Reactions: No Reported Reaction Past Psychological History: Anxiety, Bipolar, Depression Smoking Status: Never smoker Past Alcohol Use History: None Reported Past Drug Use History: None Reported Medications and Allergies Home Medications Medication Instructions Recorded Confirmed Type Acetaminophen Tab [Tylenol] 650 mg PO Q6HR PRN tab 02/06/25 03/23/25 Rx Mesalamine [Lialda] 4.8 gm PO HS@2100 03/13/25 03/23/25 History Amoxic-Pot Clav 875-125Mg 1 tab PO BID 4 Days #8 tab 03/19/25 03/23/25 Rx [Augmentin 875-125] Ferrous Sulfate [Iron (65 MG 325 mg PO BID-W/MEALS tab 03/26/25 Rx Elemental)] predniSONE See Taper PO DAILY 19 Days #36 tab 03/26/25 03/23/25 Rx Allergies Allergy/AdvReac Type Severity Reaction Status Date / Time No Known Allergies Allergy Verified 03/23/25 17:02 Physical Exam Vitals: Vital Signs Temp Pulse Resp BP Pulse Ox 03/24/25 11:00 82 7 L 95/65 96 03/24/25 10:00 83 6 L 104/65 98 03/24/25 09:00 66 22 106/62 95 03/24/25 08:00 98.3 F 83 23 108/70 98 03/24/25 07:00 86 13 115/62 100 03/24/25 06:00 49 L 99/46 95 03/24/25 05:00 71 12 112/70 93 L 03/24/25 04:00 62 12 102/49 95 03/24/25 03:00 55 L 14 96/55 94 L 03/24/25 02:00 62 15 92/48 96 03/24/25 01:00 73 12 96/63 96 03/24/25 00:09 71 12 106/54 93 L 03/24/25 00:00 98.1 F 68 0 L 119/59 92 L 03/23/25 23:00 70 0 L 105/59 95 03/23/25 22:00 59 L 20 118/63 96 03/23/25 21:30 98.4 F 64 16 118/63 03/23/25 21:00 82 12 118/64 96 03/23/25 20:35 88 18 114/57 97 03/23/25 20:00 64 14 102/60 96 03/23/25 19:03 99.8 F H 67 18 107/50 96 03/23/25 19:00 67 14 121/48 96 03/23/25 18:55 100.5 F H 75 20 121/48 95 03/23/25 18:45 100.5 F H 86 18 112/67 98 03/23/25 18:35 100.6 F H 72 18 107/56 97 03/23/25 18:00 84 34 H 103/56 100 03/23/25 17:55 73 18 103/56 96 03/23/25 17:15 78 20 95/49 97 03/23/25 17:00 71 33 H 84/47 84 L 03/23/25 16:45 99.9 F H 92 22 100/55 97 03/23/25 16:00 71 35 H 103/57 98 03/23/25 15:40 77 16 95/42 98 03/23/25 15:00 82 29 H 93/49 97 03/23/25 14:56 76 22 93/49 96 03/23/25 14:45 101.1 F H 82 22 84/41 94 L 03/23/25 14:15 83 20 82/42 96 03/23/25 14:00 89 30 H 91/38 97 03/23/25 13:53 100.2 F H 93 20 91/38 98 03/23/25 13:22 90 32 H 54/40 99 03/23/25 13:00 92 18 90/33 96 03/23/25 12:15 91 20 99/77 97 03/23/25 11:59 100.9 F H 103 H 20 74/37 99 Intake and Output 03/23/25 03/24/25 03/24/25 22:59 06:59 14:59 Intake Total 018.622 4123.721 1052.704 Output Total 600 1000 400 Balance 124.184 352.721 652.704 Intake: IV 390 1240 850 Lactated Ringers 1,000 ml 390 1040 650 @ 130 mls/hr IV .Q7H42M [facility] Rx#:[id number] Piperacillin-Tazobactam 3 100 200 .375 gm In Sodium Chloride 0.9% 100 ml @ 25 mls/hr IVPB Q8HR [facility] Rx# :[id number] metroNIDAZOLE-NS PMX 500 100 mg In Saline 1 100ml.bag @ 100 mls/hr IVPB Q8HR [facility] Rx#:[id number] Intake, IV Titration 24.184 112.721 202.704 Amount Norepinephrine 8 mg In 24.184 112.721 2.704 Sodium Chloride 0.9% 250 ml @ 0.03 MCG/KG/MIN 8. 689 mls/hr IV .Q24H [facility] Rx#:[id number] metroNIDAZOLE-NS PMX 500 200 mg In Saline 1 100ml.bag @ 100 mls/hr IVPB Q8HR [facility] Rx#:[id number] Blood Product 310 Rc As-1 Unit 310 [id number] Output: Urine 600 1000 400 Other: Voiding Method Urinal Urinal Urinal # Voids 1 # Bowel Movements 1 1 1 Weight 149.685 kg 149.1 kg VITAL SIGNS: Reviewed GENERAL: Resting comfortably in bed. Pale EYES: PERRL, no scleral injection or icterus. HENT: Normocephalic, atraumatic, hearing grossly intact, moist mucous membranes. CARDIOVASCULAR: S1 and S2 present. No murmurs, rubs, or gallops. PULMONARY: Chest is clear to auscultation, no wheezing, rhonchi, or crackles. ABDOMEN: Soft, nontender, nondistended. No palpable organomegaly. NEUROLOGICAL: Alert and oriented. Gross neurological examination with no apparent focal deficits. EXTREMITIES: No pedal edema. SKIN: No apparent rashes. Results CBC & Chem 7: 03/26/25 04:27 03/26/25 04:27 Labs: Abnormal Lab Results - Last 24 Hours (Table) 03/23/25 03/23/25 03/23/25 Range/Units 12:41 12:41 12:41 WBC 15.36 H (4.50-10.00) 10*3/uL RBC 2.72 L (4.40-5.60) 10*6/uL Hgb 7.0 L D (13.0-17.0) g/dL Hct 22.1 L (39.6-50.0) % MCH 25.7 L (27.0-32.0) pg MCHC 31.7 L (32.0-37.0) g/dL Plt Count 448 H (140-440) 10*3/uL Immature Gran # 0.25 H (0.00-0.04) 10*3/uL Neutrophils # 12.28 H (1.80-7.70) 10*3/uL Lymphocytes # (0.90-5.00) 10*3/uL Monocytes # 1.48 H (0.20-1.00) 10*3/uL Eosinophils # 0.00 L (0.04-0.35) 10*3/uL APTT 21.3 L (22.0-30.0) sec Sodium 134 L (137-145) mmol/L Creatinine (0.66-1.25) mg/dL Glucose (74-99) mg/dL POC Glucose (mg/dL) (70-110) mg/dL Plasma Lactic Acid Dain (0.7-2.0) mmol/L Total Protein 5.6 L (6.3-8.2) g/dL Albumin 3.1 L (3.5-5.0) g/dL Crossmatch 03/23/25 03/23/25 03/23/25 Range/Units 12:41 16:29 16:29 WBC (4.50-10.00) 10*3/uL RBC (4.40-5.60) 10*6/uL Hgb (13.0-17.0) g/dL Hct (39.6-50.0) % MCH (27.0-32.0) pg MCHC (32.0-37.0) g/dL Plt Count (140-440) 10*3/uL Immature Gran # (0.00-0.04) 10*3/uL Neutrophils # (1.80-7.70) 10*3/uL Lymphocytes # (0.90-5.00) 10*3/uL Monocytes # (0.20-1.00) 10*3/uL Eosinophils # (0.04-0.35) 10*3/uL APTT (22.0-30.0) sec Sodium (137-145) mmol/L Creatinine (0.66-1.25) mg/dL Glucose (74-99) mg/dL POC Glucose (mg/dL) (70-110) mg/dL Plasma Lactic Acid Dain 2.7 H* 2.4 H* (0.7-2.0) mmol/L Total Protein (6.3-8.2) g/dL Albumin (3.5-5.0) g/dL Crossmatch See Detail 03/23/25 03/24/25 03/24/25 Range/Units 20:28 05:26 05:26 WBC 10.16 H (4.50-10.00) 10*3/uL RBC 2.79 L (4.40-5.60) 10*6/uL Hgb 7.1 L (13.0-17.0) g/dL Hct 22.9 L (39.6-50.0) % MCH 25.4 L (27.0-32.0) pg MCHC 31.0 L (32.0-37.0) g/dL Plt Count 441 H (140-440) 10*3/uL Immature Gran # 0.11 H (0.00-0.04) 10*3/uL Neutrophils # 9.46 H (1.80-7.70) 10*3/uL Lymphocytes # 0.47 L (0.90-5.00) 10*3/uL Monocytes # 0.12 L (0.20-1.00) 10*3/uL Eosinophils # 0.00 L (0.04-0.35) 10*3/uL APTT (22.0-30.0) sec Sodium 134 L (137-145) mmol/L Creatinine 0.65 L (0.66-1.25) mg/dL Glucose 136 H (74-99) mg/dL POC Glucose (mg/dL) 126 H (70-110) mg/dL Plasma Lactic Acid Dain (0.7-2.0) mmol/L Total Protein 5.2 L (6.3-8.2) g/dL Albumin 2.7 L (3.5-5.0) g/dL Crossmatch 03/24/25 03/24/25 Range/Units 06:27 11:20 WBC (4.50-10.00) 10*3/uL RBC (4.40-5.60) 10*6/uL Hgb (13.0-17.0) g/dL Hct (39.6-50.0) % MCH (27.0-32.0) pg MCHC (32.0-37.0) g/dL Plt Count (140-440) 10*3/uL Immature Gran # (0.00-0.04) 10*3/uL Neutrophils # (1.80-7.70) 10*3/uL Lymphocytes # (0.90-5.00) 10*3/uL Monocytes # (0.20-1.00) 10*3/uL Eosinophils # (0.04-0.35) 10*3/uL APTT (22.0-30.0) sec Sodium (137-145) mmol/L Creatinine (0.66-1.25) mg/dL Glucose (74-99) mg/dL POC Glucose (mg/dL) 142 H 136 H (70-110) mg/dL Plasma Lactic Acid Dain (0.7-2.0) mmol/L Total Protein (6.3-8.2) g/dL Albumin (3.5-5.0) g/dL Crossmatch Assessment and Plan Plan: #Acute flareup of ulcerative colitis #Anemia #Acute leukocytosis #Septic shock Initial hemoglobin 7.0 - Ferritin, iron panel, folate, vitamin B12 ordered - S/p 1u pRBC, without appropriate response - Leukocytosis may be do to underlying inflammation vs infectious cause Maintain hemoglobin >7.0, infuse pRBC as needed to maintain - Monitor CBC - GI and surgery following Federico Davis MD Internal Medicine Resident, PGY2 Hematology oncology service Patient seen with resident and agree with assessment and plan as outlined above. Alea Fitzgerald MD
[2025-03-24 17:17] LABS: Glucose,Whole Blood 123 mg/dL (70-110)
[2025-03-24] MEDS: methylPREDNISolone SOD SUCCI 40 MG/ML 1 ML VIAL IV SCH (17:22)
[2025-03-24 17:37] LABS: Ferritin 107.0 ng/mL (22.0-322.0); Iron 7.0 UG/DL (65-175); Total Iron Binding Capacity 318.0 UG/DL (228-460); Vitamin B12 429.0 pg/mL (200.0-944.0)
--- NOTE | 2025-03-24 17:51 | PN ---
PROGRESS NOTE DATE OF SERVICE: 03/24/2025 SUBJECTIVE: This is a 25-year-old gentleman who was admitted with acute severe pancolitis and possible sepsis, is being closely monitored in ICU. The blood pressure is slightly improved. Multiple consultants are following the patient closely. CT scan of the abdomen showed wall thickening of the colon and concerning the pancolitis. PAST MEDICAL HISTORY: Reviewed. REVIEW OF SYSTEMS: 14-point review of systems negative except as mentioned earlier. CURRENT MEDICATIONS: Reviewed. PHYSICAL EXAMINATION: VITAL SIGNS: Pulse is 80, blood pressure is n, respirations 17. HEENT: Conjunctivae normal. NECK: No jugular venous distention. CARDIOVASCULAR: S1 and S2. ABDOMEN: Soft, obese. LEGS: No edema. NERVOUS SYSTEM: Nonfocal. LABORATORY DATA: Reviewed. ASSESSMENT: 1. Acute severe pancolitis, recurrent with possible sepsis present on admission. 2. Anemia, acute on chronic with blood loss. 3. Elevated WBC, possibly secondary to sepsis. 4. Hyponatremia. 5. Elevated lactic acid and lactic acidemia. 6. Anxiety, bipolar, depression. RECOMMENDATIONS: Recommend to continue current management and continue symptomatic treatment. Otherwise I would recommend repeat labs. Continue with IV steroids. Continue with empiric antibiotics. Closely follow with multiple consultants. Prognosis guarded because of multiple complex medical issues. Further recommendations to follow. See orders for details. MMODL / IJN: [id number] / MTDD
[2025-03-24 20:05] LABS: Glucose,Whole Blood 143 mg/dL (70-110)
[2025-03-25 03:32] LABS: Basophils # (A) 0.03 10*3/uL (0.00-0.10); Basophils % (A) 0.2 %; Eosinophils # (A) 0.00 10*3/uL (0.04-0.35); Eosinophils % (A) 0.0 %; HCT 21.5 % (39.6-50.0); Lymphocytes # (A) 1.15 10*3/uL (0.90-5.00); Lymphocytes % (A) 8.5 %; MCH 25.8 pg (27.0-32.0); MCHC 32.1 g/dL (32.0-37.0); MCV 80.5 fL (80.0-97.0); Monocytes # (A) 0.70 10*3/uL (0.20-1.00); Monocytes % (A) 5.2 %; Neutrophils # (A) 11.56 10*3/uL (1.80-7.70); Neutrophils % (A) 85.0 %; Platelet Count 339 10*3/uL (140-440); RBC 2.67 10*6/uL (4.40-5.60); RDW 16.7 % (11.5-14.5); WBC 13.59 10*3/uL (4.50-10.00)
[2025-03-25 03:48] LABS: HGB 6.9 g/dL (13.0-17.0)
[2025-03-25 04:06] LABS: African American GFR (CKD) >90 (>60 ml/min/1.73 sqM); Anion Gap 9 mmol/L; Blood Urea Nitrogen 13 mg/dL (9-20); Calcium 8.9 mg/dL (8.4-10.2); Carbon Dioxide 21 mmol/L (22-30); Chloride 105 mmol/L (98-107); Glucose 125 mg/dL (74-99); Non-African American GFR(CKD) >90 (>60 ml/min/1.73 sqM); Potassium 4.6 mmol/L (3.5-5.1); Sodium 135 mmol/L (137-145)
[2025-03-25 06:53] LABS: Glucose,Whole Blood 120 mg/dL (70-110)
[2025-03-25 10:43] LABS: HCT 25.2 % (39.6-50.0); HGB 7.8 g/dL (13.0-17.0); MCH 25.6 pg (27.0-32.0); MCHC 31.0 g/dL (32.0-37.0); MCV 82.6 fL (80.0-97.0); Platelet Count 314 10*3/uL (140-440); RBC 3.05 10*6/uL (4.40-5.60); RDW 17.0 % (11.5-14.5); WBC 17.95 10*3/uL (4.50-10.00)
--- NOTE | 2025-03-25 11:15 | P.PN ---
Subjective Progress Note Date: 03/25/25 Principal diagnosis: Sepsis. Patient is a 25-year-old male with past medical history significant for recently diagnosed inflammatory bowel disease. Did have a colonoscopy on 02/04/2025 for chronic diarrhea with bloody mucus in stool for about 1 month. Findings remarkable for pancolitis with mucosal erythema, friability, granularity with exudates and spontaneous bleeding noted throughout the whole colon. Findings concerning for ulcerative colitis. Biopsies were taken and compatible with inflammatory bowel disease. He was started on mesalamine. More recently, hospitalized earlier this month February 11 with acute flareup of his UC. Abdominal CT from March 13 remarkable for liquid stool suggesting diarrhea and long segment wall thickening of the colon suggestive of infectious or inflammatory colitis. No pericolic abscesses or fistulas. No free air. No bowel obstructions. He started on IV steroids and discharged on 03/19/2025 with prednisone taper and antibiotics. He returns to the emergency department yesterday afternoon after being discharged for approximately 4 days. He started his mesalamine back up on Saturday. He went back to work on Saturday. Started feeling lightheaded, increasing lethargic. Intermittent fevers. His mother checked his blood pressure which was reportedly low. On arrival to the emergency department his blood pressure was 74/37 mmHg. Lactic 2.7. Febrile with a Tmax of 101.1 F. Leukocytosis on CBC. Hemoglobin only 7 g/dL. He was fluid bolused with 3 L of lactated Ringer's. Subsequently, started on low-dose norepinephrine for blood pressure support. Remaining workup consistent of a chest x-ray showing coarse interstitial likely related to reduced inspiratory effort. Patient has no pulmonary complaints. Abdominal CT is pending. Labs including a CBC with a WBC count of 15.36, hemoglobin 7 g/dL, platelets 448. CM P grossly unremarkable, electrolytes WDL, creatinine 0.83, glucose 126. Lactic is now down to 1.3. Patient currently being seen in the intensive care unit. He is resting comfortably on room air. No acute distress. Was having approximately 5-6 bowel movements for the last several days intermittent loose versus liquid stools. No ramos blood. Admits to some nausea and intermittent vomiting that was watery and then bile. No hematemesis. No further bowel movements or vomiting since his hospitalization. Abdomen is not particularly tender. Norepinephrine is infusing at 0.02 mcg/kg/min. Lactated Ringer's infusing at 130 mL/h. He was empirically placed on a combination of Zosyn and Flagyl. Progress note dated March 25, 2025. 25-year-old male seen in the intensive care unit, room 251. He is currently on room air. He is getting LR or lactated Ringer's at 130 cc an hour. He continu es on Flagyl and Zosyn. He has received a total of 2 units of packed red blood cells. Norepinephrine was weaned off yesterday morning. He feels better, and he looks better. Current laboratory data includes a white count of 17.9, hemoglobin 7.8, hematocrit 25.2, platelet count of 314,000. Sodium 135, potassium 4.6, chlorides 105, CO2 21, BUN 13, creatinine 0.76. Glucose is 120. Calcium is 8.9. Blood cultures are thus far negative. Objective - Vital Signs Vital signs: Vital Signs Temp 97.9 F 03/25/25 08:26 Pulse 61 03/25/25 09:00 Resp 14 03/25/25 09:00 BP 106/66 03/25/25 09:00 Pulse Ox 95 03/25/25 09:00 FiO2 Intake & Output 03/24/25 03/25/25 03/25/25 18:59 06:59 18:59 Intake Total 6343.513 6700 700 Output Total 401 600 Balance 9289.386 5057 700 Weight 148.8 kg Intake: IV 1660 1950 390 0.9 KVO 90 Lactated Ringers 1,000 ml 1560 1560 390 @ 130 mls/hr IV .Q7H42M [facility] Rx#:[id number] Piperacillin-Tazobactam 3 100 200 .375 gm In Sodium Chloride 0.9% 100 ml @ 25 mls/hr IVPB Q8HR [facility] Rx# :[id number] metroNIDAZOLE-NS PMX 500 100 mg In Saline 1 100ml.bag @ 100 mls/hr IVPB Q8HR [facility] Rx#:[id number] Intake, IV Titration 102.704 Amount Norepinephrine 8 mg In 2.704 Sodium Chloride 0.9% 250 ml @ 0.03 MCG/KG/MIN 8. 689 mls/hr IV .Q24H [facility] Rx#:[id number] metroNIDAZOLE-NS PMX 500 100 mg In Saline 1 100ml.bag @ 100 mls/hr IVPB Q8HR [facility] Rx#:[id number] Blood Product 0 310 Rc As-1 Unit 0 310 [id number] Output: Urine 400 600 Stool 1 Other: Voiding Method Urinal Urinal Urinal # Voids 1 1 # Bowel Movements 1 1 1 - Exam No acute distress, oriented 3. Currently on room air. HEENT examination is grossly unremarkable. Mucous membranes are moist. No oral lesions. Neck supple. Full range of motion. No adenopathy thyromegaly or neck vein distention. Cardiovascular examination reveals regular rhythm rate. S1-S2 normal. No S3 or S4. No discernible murmur noted. Lungs reveal clear breath sounds. Breath sounds are equal bilaterally. No adventitious lung sounds including wheezes rhonchi or crackles. Abdomen soft bowel sounds are heard. No masses or tenderness. Extremities are intact. No cyanosis clubbing or edema. Skin is without rash or lesion. Neurologic examination is brief but nonfocal. - Labs CBC & Chem 7: 03/25/25 10:15 03/25/25 03:21 Labs: Abnormal Lab Results - Last 24 Hours (Table) 03/23/25 03/24/25 03/24/25 Range/Units 16:29 05:26 11:20 WBC (4.50-10.00) 10*3/uL RBC (4.40-5.60) 10*6/uL Hgb (13.0-17.0) g/dL Hct (39.6-50.0) % MCH (27.0-32.0) pg MCHC (32.0-37.0) g/dL Immature Gran # (0.00-0.04) 10*3/uL Neutrophils # (1.80-7.70) 10*3/uL Eosinophils # (0.04-0.35) 10*3/uL Sodium (137-145) mmol/L Carbon Dioxide (22-30) mmol/L Glucose (74-99) mg/dL POC Glucose (mg/dL) 136 H (70-110) mg/dL Iron 7 L (65-175) UG/DL % Saturation 2.20 L (15.00-50.00) Crossmatch See Detail 03/24/25 03/24/25 03/25/25 Range/Units 17:16 20:03 03:21 WBC 13.59 H (4.50-10.00) 10*3/uL RBC 2.67 L (4.40-5.60) 10*6/uL Hgb 6.9 L* (13.0-17.0) g/dL Hct 21.5 L (39.6-50.0) % MCH 25.8 L (27.0-32.0) pg MCHC (32.0-37.0) g/dL Immature Gran # 0.15 H (0.00-0.04) 10*3/uL Neutrophils # 11.56 H (1.80-7.70) 10*3/uL Eosinophils # 0.00 L (0.04-0.35) 10*3/uL Sodium (137-145) mmol/L Carbon Dioxide (22-30) mmol/L Glucose (74-99) mg/dL POC Glucose (mg/dL) 123 H 143 H (70-110) mg/dL Iron (65-175) UG/DL % Saturation (15.00-50.00) Crossmatch 03/25/25 03/25/25 03/25/25 Range/Units 03:21 06:51 10:15 WBC 17.95 H (4.50-10.00) 10*3/uL RBC 3.05 L (4.40-5.60) 10*6/uL Hgb 7.8 L (13.0-17.0) g/dL Hct 25.2 L (39.6-50.0) % MCH 25.6 L (27.0-32.0) pg MCHC 31.0 L (32.0-37.0) g/dL Immature Gran # 0.38 H (0.00-0.04) 10*3/uL Neutrophils # (1.80-7.70) 10*3/uL Eosinophils # (0.04-0.35) 10*3/uL Sodium 135 L (137-145) mmol/L Carbon Dioxide 21 L (22-30) mmol/L Glucose 125 H (74-99) mg/dL POC Glucose (mg/dL) 120 H (70-110) mg/dL Iron (65-175) UG/DL % Saturation (15.00-50.00) Crossmatch Microbiology - Last 24 Hours (Table) 03/23/25 12:41 Blood Culture - Preliminary Blood Assessment and Plan Assessment: Sepsis/septic shock, refractory to fluid resuscitation. Acute flareup of ulcerative colitis. Anemia, secondary to above. Acute leukocytosis. Febrile illness. History of inflammatory bowel disease/ulcerative colitis. Plan: Plan dated March 25, 2025. The patient is seen in room 251. He is currently on room air. He is getting lactated Ringer's at 130 cc an hour. Norepinephrine, which was used for blood pressure support, was weaned off yesterday at 7:30 AM. The patient has received a total of 2 units of PRBCs. He is currently on Flagyl and Zosyn. He is also getting Solu-Medrol. Labs, x-rays, and all medications are reviewed. We will continue to follow the patient, make recommendations were appropriate. If the patient remains stable, the patient can be transferred out of the intensive care unit. Dictation was produced using [employer] dictation software. Please excuse any grammatical, word or spelling errors. Time with Patient: Less than 30
[2025-03-25 12:14] LABS: Glucose,Whole Blood 127 mg/dL (70-110)
[2025-03-25 12:17] LABS: Lymphocytes # (M) 0.72 k/uL (1.0-4.8); Monocytes # (M) 0.54 k/uL (0-1.0); Neutrophils # (M) 16.87 k/uL (1.3-7.7); Neutrophils % (M) 94 %; Total Cells Counted 200
[2025-03-25 12:19] LABS: Ovalocytes Present
[2025-03-25 12:20] LABS: Anisocytosis (M) Present; Poikilocytosis (M) Present
--- NOTE | 2025-03-25 13:23 | P.PN ---
Subjective Progress Note Date: 03/25/25 Principal diagnosis: Ulcerative colitis This a pleasant 25-year-old male recently hospitalized for sepsis and viral infection who returned to the emergency department yesterday with fever chills and vomiting. Patient was just discharged about 4 days ago and apparently yesterday started feeling little bit dizzy and was noted to have low blood pressure. They came in for further evaluation. He was recently diagnosed with ulcerative colitis and underwent colonoscopy 02/04/2025, he was discharged on prednisone taper and started on mesalamine. He states as far as his colitis goes that has improved. He has about 4-5 bowel movements a day no blood no abdominal pain. Patient is admitted to the intensive care unit currently on Levophed and was started on Flagyl and Zosyn. He had been on prednisone 20 mg prior to coming into this last hospitalization and was discharged on prednisone 30 mg daily. He was initially started on Solu-Medrol 60 mg every 8 hours on this admission. Today's labs WBC 10.1 hemoglobin 7.1 platelet count 441,000 sodium 134 potassium 4.5 BUN 12 creatinine 0.6 total bilirubin 0.7 AST 19 ALT 23 alkaline phosphatase 51 03/25/2025 Patient seen and examined today as a follow-up. States he is feeling better. He would like to try and eat. Had about 3 bowel movements on nonbloody. No abdominal pain. He did have a drop in his hemoglobin to 6.9. Status post second unit of blood given. Hemodynamically stable. He is off of Levophed. Objective - Vital Signs Vital signs: Vital Signs Temp 97.9 F 03/25/25 08:26 Pulse 64 03/25/25 08:26 Resp 18 03/25/25 08:26 BP 110/64 03/25/25 08:26 Pulse Ox 98 03/25/25 08:26 FiO2 Intake & Output 03/24/25 03/25/25 03/25/25 18:59 06:59 18:59 Intake Total 4211.547 3843 440 Output Total 401 600 Balance 2827.146 8708 440 Weight 148.8 kg Intake: IV 1660 1950 130 0.9 KVO 90 Lactated Ringers 1,000 ml 1560 1560 130 @ 130 mls/hr IV .Q7H42M [facility] Rx#:[id number] Piperacillin-Tazobactam 3 100 200 .375 gm In Sodium Chloride 0.9% 100 ml @ 25 mls/hr IVPB Q8HR [facility] Rx# :[id number] metroNIDAZOLE-NS PMX 500 100 mg In Saline 1 100ml.bag @ 100 mls/hr IVPB Q8HR [facility] Rx#:[id number] Intake, IV Titration 102.704 Amount Norepinephrine 8 mg In 2.704 Sodium Chloride 0.9% 250 ml @ 0.03 MCG/KG/MIN 8. 689 mls/hr IV .Q24H [facility] Rx#:[id number] metroNIDAZOLE-NS PMX 500 100 mg In Saline 1 100ml.bag @ 100 mls/hr IVPB Q8HR [facility] Rx#:[id number] Blood Product 0 310 Rc As-1 Unit 0 310 [id number] Output: Urine 400 600 Stool 1 Other: Voiding Method Urinal Urinal # Voids 1 1 # Bowel Movements 1 1 1 - Exam General appearance: The patient is alert, oriented, appears in no acute distress. HET: Head is normocephalic and atraumatic. Conjunctiva pink. Sclera anicteric. Neck: Supple without lymphadenopathy. Abdomen: Soft, nontender, nondistended. Extremities: Normal skin color and turgor. No pedal edema Skin: No rashes, no jaundice Neurological: No focal deficits. Alert and oriented. - Labs CBC & Chem 7: 03/25/25 10:15 03/25/25 03:21 Labs: Abnormal Lab Results - Last 24 Hours (Table) 03/23/25 03/24/25 03/24/25 Range/Units 16:29 05:26 11:20 WBC (4.50-10.00) 10*3/uL RBC (4.40-5.60) 10*6/uL Hgb (13.0-17.0) g/dL Hct (39.6-50.0) % MCH (27.0-32.0) pg Immature Gran # (0.00-0.04) 10*3/uL Neutrophils # (1.80-7.70) 10*3/uL Eosinophils # (0.04-0.35) 10*3/uL Sodium (137-145) mmol/L Carbon Dioxide (22-30) mmol/L Glucose (74-99) mg/dL POC Glucose (mg/dL) 136 H (70-110) mg/dL Iron 7 L (65-175) UG/DL % Saturation 2.20 L (15.00-50.00) Crossmatch See Detail 03/24/25 03/24/25 03/25/25 Range/Units 17:16 20:03 03:21 WBC 13.59 H (4.50-10.00) 10*3/uL RBC 2.67 L (4.40-5.60) 10*6/uL Hgb 6.9 L* (13.0-17.0) g/dL Hct 21.5 L (39.6-50.0) % MCH 25.8 L (27.0-32.0) pg Immature Gran # 0.15 H (0.00-0.04) 10*3/uL Neutrophils # 11.56 H (1.80-7.70) 10*3/uL Eosinophils # 0.00 L (0.04-0.35) 10*3/uL Sodium (137-145) mmol/L Carbon Dioxide (22-30) mmol/L Glucose (74-99) mg/dL POC Glucose (mg/dL) 123 H 143 H (70-110) mg/dL Iron (65-175) UG/DL % Saturation (15.00-50.00) Crossmatch 03/25/25 03/25/25 Range/Units 03:21 06:51 WBC (4.50-10.00) 10*3/uL RBC (4.40-5.60) 10*6/uL Hgb (13.0-17.0) g/dL Hct (39.6-50.0) % MCH (27.0-32.0) pg Immature Gran # (0.00-0.04) 10*3/uL Neutrophils # (1.80-7.70) 10*3/uL Eosinophils # (0.04-0.35) 10*3/uL Sodium 135 L (137-145) mmol/L Carbon Dioxide 21 L (22-30) mmol/L Glucose 125 H (74-99) mg/dL POC Glucose (mg/dL) 120 H (70-110) mg/dL Iron (65-175) UG/DL % Saturation (15.00-50.00) Crossmatch Microbiology - Last 24 Hours (Table) 03/23/25 12:41 Blood Culture - Preliminary Blood Assessment and Plan (1) Ulcerative colitis Narrative/Plan: 25-year-old male recently diagnosed with ulcerative colitis by colonoscopy on 02/04/2025. Was started on IV steroids while in the hospital and then discharged home on prednisone 40 mg taper and was started on mesalamine once seen for follow-up. Patient recently admitted with sepsis thought to have viral infection. Now readmitted with anemia and hypotension. Seems symptoms for ulcerative colitis are actually improved from when he was diagnosed. Patient without any bloody bowel movements, improvement in number of bowel movements daily. Recommend continuing steroids, will decrease Solu-Medrol to 20 mg every 8 hours. Current Visit: Yes Status: Acute Code(s): K51.90 - ULCERATIVE COLITIS, UNSPECIFIED, WITHOUT COMPLICATIONS SNOMED Code(s): 77781864 (2) Anemia Current Visit: Yes Status: Acute Code(s): D64.9 - ANEMIA, UNSPECIFIED SNOMED Code(s): 575458435 (3) Hypotension Current Visit: Yes Status: Acute Code(s): I95.9 - HYPOTENSION, UNSPECIFIED SNOMED Code(s): 02045234 Plan: 1. Continue symptomatic and supportive care 2. May advance to regular diet 3. Continue Solu-Medrol to 20 mg every 8 hours 4. Antiemetics as needed 5. No plans on endoscopic evaluation patient had recent colonoscopy with new diagnosis of ulcerative colitis 6. Daily CBC, transfuse for hemoglobin less than 7 7. Protonix 40 mg daily for GI prophylaxis 8. 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 Dr. Samreen Antunez I agree with the dictator's note, documented as a scribe by Bhumi Mccracken.
--- NOTE | 2025-03-25 13:27 | P.PN ---
Subjective Progress Note Date: 03/25/25 SURGICAL PROGRESS NOTE CHIEF COMPLAINT: Ulcerative colitis HISTORY OF PRESENT ILLNESS: Patient reports improvement in his abdominal pain. He denies any nausea or vomiting. He did have 5 episodes of diarrhea yesterday. He reports no blood in the stools. His hemoglobin did go down from 7.1-6.9 he did receive 2 units of blood. WBC went from 10-13. Patient tolerating regular diet. PHYSICAL EXAM: VITAL SIGNS: Reviewed. GENERAL: Well-developed in no acute distress. HEENT: No sclera icterus. Extraocular movements grossly intact. Moist buccal mucosa. Head is atraumatic, normocephalic. ABDOMEN: Soft. Nondistended. Nontender. NEUROLOGIC: Alert and oriented. Cranial nerves II through XII grossly intact. ASSESSMENT: 1. Ulcerative colitis 2. Sepsis PLAN: - Surgical service will remain on standby - Continue to monitor - Continue steroids per GI service - Continue regular diet Physician Corporate Real Estate Specialist note has been reviewed by physician. Signing provider agrees with the documented findings, assessment, and plan of care. Objective - Vital Signs Vital signs: Vital Signs Temp 97.9 F 03/25/25 08:26 Pulse 61 03/25/25 09:00 Resp 14 03/25/25 09:00 BP 106/66 03/25/25 09:00 Pulse Ox 95 03/25/25 09:00 FiO2 Intake & Output 03/24/25 03/25/25 03/25/25 18:59 06:59 18:59 Intake Total 1926.074 5947 700 Output Total 401 600 Balance 9334.677 2347 700 Weight 148.8 kg Intake: IV 1660 1950 390 0.9 KVO 90 Lactated Ringers 1,000 ml 1560 1560 390 @ 130 mls/hr IV .Q7H42M [facility] Rx#:[id number] Piperacillin-Tazobactam 3 100 200 .375 gm In Sodium Chloride 0.9% 100 ml @ 25 mls/hr IVPB Q8HR [facility] Rx# :[id number] metroNIDAZOLE-NS PMX 500 100 mg In Saline 1 100ml.bag @ 100 mls/hr IVPB Q8HR [facility] Rx#:[id number] Intake, IV Titration 102.704 Amount Norepinephrine 8 mg In 2.704 Sodium Chloride 0.9% 250 ml @ 0.03 MCG/KG/MIN 8. 689 mls/hr IV .Q24H [facility] Rx#:[id number] metroNIDAZOLE-NS PMX 500 100 mg In Saline 1 100ml.bag @ 100 mls/hr IVPB Q8HR [facility] Rx#:[id number] Blood Product 0 310 Rc As-1 Unit 0 310 [id number] Output: Urine 400 600 Stool 1 Other: Voiding Method Urinal Urinal Urinal # Voids 1 1 # Bowel Movements 1 1 1 - Labs CBC & Chem 7: 03/25/25 10:15 03/25/25 03:21 Labs: Abnormal Lab Results - Last 24 Hours (Table) 03/23/25 03/24/25 03/24/25 Range/Units 16:29 05:26 17:16 WBC (4.50-10.00) 10*3/uL RBC (4.40-5.60) 10*6/uL Hgb (13.0-17.0) g/dL Hct (39.6-50.0) % MCH (27.0-32.0) pg MCHC (32.0-37.0) g/dL Immature Gran # (0.00-0.04) 10*3/uL Neutrophils # (1.80-7.70) 10*3/uL Neutrophils # (Manual) (1.3-7.7) k/uL Lymphocytes # (Manual) (1.0-4.8) k/uL Eosinophils # (0.04-0.35) 10*3/uL Sodium (137-145) mmol/L Carbon Dioxide (22-30) mmol/L Glucose (74-99) mg/dL POC Glucose (mg/dL) 123 H (70-110) mg/dL Iron 7 L (65-175) UG/DL % Saturation 2.20 L (15.00-50.00) Crossmatch See Detail 03/24/25 03/25/25 03/25/25 Range/Units 20:03 03:21 03:21 WBC 13.59 H (4.50-10.00) 10*3/uL RBC 2.67 L (4.40-5.60) 10*6/uL Hgb 6.9 L* (13.0-17.0) g/dL Hct 21.5 L (39.6-50.0) % MCH 25.8 L (27.0-32.0) pg MCHC (32.0-37.0) g/dL Immature Gran # 0.15 H (0.00-0.04) 10*3/uL Neutrophils # 11.56 H (1.80-7.70) 10*3/uL Neutrophils # (Manual) (1.3-7.7) k/uL Lymphocytes # (Manual) (1.0-4.8) k/uL Eosinophils # 0.00 L (0.04-0.35) 10*3/uL Sodium 135 L (137-145) mmol/L Carbon Dioxide 21 L (22-30) mmol/L Glucose 125 H (74-99) mg/dL POC Glucose (mg/dL) 143 H (70-110) mg/dL Iron (65-175) UG/DL % Saturation (15.00-50.00) Crossmatch 03/25/25 03/25/25 03/25/25 Range/Units 06:51 10:15 12:13 WBC 17.95 H (4.50-10.00) 10*3/uL RBC 3.05 L (4.40-5.60) 10*6/uL Hgb 7.8 L (13.0-17.0) g/dL Hct 25.2 L (39.6-50.0) % MCH 25.6 L (27.0-32.0) pg MCHC 31.0 L (32.0-37.0) g/dL Immature Gran # 0.38 H (0.00-0.04) 10*3/uL Neutrophils # (1.80-7.70) 10*3/uL Neutrophils # (Manual) 16.87 H (1.3-7.7) k/uL Lymphocytes # (Manual) 0.72 L (1.0-4.8) k/uL Eosinophils # (0.04-0.35) 10*3/uL Sodium (137-145) mmol/L Carbon Dioxide (22-30) mmol/L Glucose (74-99) mg/dL POC Glucose (mg/dL) 120 H 127 H (70-110) mg/dL Iron (65-175) UG/DL % Saturation (15.00-50.00) Crossmatch Microbiology - Last 24 Hours (Table) 03/23/25 12:41 Blood Culture - Preliminary Blood
[2025-03-25 15:57] LABS: Glucose,Whole Blood 148 mg/dL (70-110)
[2025-03-25 20:49] VITALS: RESP 16
[2025-03-25 21:08] LABS: Glucose,Whole Blood 119 mg/dL (70-110)
--- NOTE | 2025-03-26 00:39 | PN ---
PROGRESS NOTE DATE OF SERVICE: 03/25/2025 HISTORY OF PRESENT ILLNESS: This is a 25-year-old gentleman with a past medical history of multiple medical problems including colitis, was admitted with pancolitis. The patient also abuses substance. The patient is closely monitored at this time. Cultures are negative so far. The patient is on tapering dose steroids and his blood pressure is slightly improved. Patient monitored in ICU. Recent colonoscopy showed ulcerative colitis. The patient is closely monitored. There is no history of fever, rigors, or chills at this time. PAST MEDICAL HISTORY: Reviewed. REVIEW OF SYSTEMS: Fourteen-point review of systems is negative except as mentioned earlier. CURRENT MEDICATIONS: Reviewed. PHYSICAL EXAMINATION: VITAL SIGNS: Pulse is 64, blood pressure 110/65, respirations 18. HEENT: Conjunctivae normal. NECK: No jugular venous distention. CARDIOVASCULAR: S1 and S2. RESPIRATIONS: Breath sounds diminished at the bases. Scattered rhonchi. ABDOMEN: Soft, mild diffuse discomfort. EXTREMITIES: Legs: No edema. NERVOUS SYSTEM: Nonfocal. LABORATORY DATA: Reviewed. ASSESSMENT: 1. Acute severe pancolitis, recurrent with possible sepsis present on admission. 2. Recent diagnosis of ulcerative colitis. 3. Anemia, acute on chronic with blood loss anemia. 4. Elevated WBC possibly secondary to sepsis. 5. Hyponatremia. 6. Elevated lactic acid, lactic acidemia. 7. Anxiety and bipolar depression. RECOMMENDATIONS AND DISCUSSION: Recommend to continue current management and treatment plan. Continue the antibiotics. Follow the cultures. Repeat labs. Tapering steroids. Closely follow with multiple consultants. Increase ambulation. Advance diet. Prognosis guarded. Further recommendations to follow. MMODL / IJN: [id number] /
[2025-03-26 05:00] LABS: Basophils # (A) 0.00 10*3/uL (0.00-0.10); Basophils % (A) 0.0 %; Eosinophils # (A) 0.00 10*3/uL (0.04-0.35); Eosinophils % (A) 0.0 %; HCT 22.3 % (39.6-50.0); HGB 7.0 g/dL (13.0-17.0); Lymphocytes # (A) 0.64 10*3/uL (0.90-5.00); Lymphocytes % (A) 6.2 %; MCH 26.3 pg (27.0-32.0); MCHC 31.4 g/dL (32.0-37.0); MCV 83.8 fL (80.0-97.0); Monocytes # (A) 0.44 10*3/uL (0.20-1.00); Monocytes % (A) 4.3 %; Neutrophils # (A) 9.11 10*3/uL (1.80-7.70); Neutrophils % (A) 88.7 %; Platelet Count 318 10*3/uL (140-440); RBC 2.66 10*6/uL (4.40-5.60); RDW 17.1 % (11.5-14.5); WBC 10.27 10*3/uL (4.50-10.00)
[2025-03-26 05:11] LABS: African American GFR (CKD) >90 (>60 ml/min/1.73 sqM); Anion Gap 8 mmol/L; Blood Urea Nitrogen 14 mg/dL (9-20); Calcium 8.5 mg/dL (8.4-10.2); Carbon Dioxide 23 mmol/L (22-30); Chloride 104 mmol/L (98-107); Glucose 103 mg/dL (74-99); Non-African American GFR(CKD) >90 (>60 ml/min/1.73 sqM); Potassium 4.3 mmol/L (3.5-5.1); Sodium 135 mmol/L (137-145)
[2025-03-26 06:29] LABS: Glucose,Whole Blood 116 mg/dL (70-110)
[2025-03-26 07:28] VITALS: BP 100/66; PULSE 53; TEMP 98.2
--- NOTE | 2025-03-26 09:08 | P.PN ---
Subjective Progress Note Date: 03/26/25 Principal diagnosis: Ulcerative colitis This a pleasant 25-year-old male recently hospitalized for sepsis and viral infection who returned to the emergency department yesterday with fever chills and vomiting. Patient was just discharged about 4 days ago and apparently yesterday started feeling little bit dizzy and was noted to have low blood pressure. They came in for further evaluation. He was recently diagnosed with ulcerative colitis and underwent colonoscopy 02/04/2025, he was discharged on prednisone taper and started on mesalamine. He states as far as his colitis goes that has improved. He has about 4-5 bowel movements a day no blood no abdominal pain. Patient is admitted to the intensive care unit currently on Levophed and was started on Flagyl and Zosyn. He had been on prednisone 20 mg prior to coming into this last hospitalization and was discharged on prednisone 30 mg daily. He was initially started on Solu-Medrol 60 mg every 8 hours on this admission. Today's labs WBC 10.1 hemoglobin 7.1 platelet count 441,000 sodium 134 potassium 4.5 BUN 12 creatinine 0.6 total bilirubin 0.7 AST 19 ALT 23 alkaline phosphatase 51 03/25/2025 Patient seen and examined today as a follow-up. States he is feeling better. He would like to try and eat. Had about 3 bowel movements on nonbloody. No abdominal pain. He did have a drop in his hemoglobin to 6.9. Status post second unit of blood given. Hemodynamically stable. He is off of Levophed. 03/26/2025 Patient seen and examined today as a follow-up. States that he is doing pretty good. He has been afebrile. No blood per rectum. Still having some loose stools which is normal for him. No abdominal pain nausea or vomiting. Hemoglobin this morning is 7.0. Will start him on iron. Objective - Vital Signs Vital signs: Vital Signs Temp 97.7 F 03/26/25 02:00 Pulse 54 L 03/26/25 02:00 Resp 16 03/26/25 02:00 BP 105/69 03/26/25 02:00 Pulse Ox 98 03/26/25 02:00 FiO2 Intake & Output 03/25/25 03/25/25 03/26/25 06:59 18:59 06:59 Intake Total 1950 1870 200 Output Total 600 Balance 1350 1870 200 Weight 148.8 kg 149.3 kg Intake: IV 1950 1560 0.9 KVO 90 Lactated Ringers 1,000 ml 1560 1560 @ 75 mls/hr IV .[id number] [facility] Rx#:[id number] Piperacillin-Tazobactam 3 200 .375 gm In Sodium Chloride 0.9% 100 ml @ 25 mls/hr IVPB Q8HR [facility] Rx# :[id number] metroNIDAZOLE-NS PMX 500 100 mg In Saline 1 100ml.bag @ 100 mls/hr IVPB Q8HR [facility] Rx#:[id number] Intake, IV Titration 200 Amount Piperacillin-Tazobactam 3 100 .375 gm In Sodium Chloride 0.9% 100 ml @ 25 mls/hr IVPB Q8HR [facility] Rx# :[id number] metroNIDAZOLE-NS PMX 500 100 mg In Saline 1 100ml.bag @ 100 mls/hr IVPB Q8HR [facility] Rx#:[id number] Blood Product 0 310 Rc As-1 Unit 0 310 [id number] Output: Urine 600 Other: Voiding Method Urinal Urinal Toilet # Voids 1 1 2 # Bowel Movements 1 3 1 - Exam General appearance: The patient is alert, oriented, appears in no acute d istress. HET: Head is normocephalic and atraumatic. Conjunctiva pink. Sclera anicteric. Neck: Supple without lymphadenopathy. Abdomen: Soft, nontender, nondistended. Extremities: Normal skin color and turgor. No pedal edema Skin: No rashes, no jaundice Neurological: No focal deficits. Alert and oriented. - Labs CBC & Chem 7: 03/26/25 04:27 03/26/25 04:27 Labs: Abnormal Lab Results - Last 24 Hours (Table) 03/23/25 03/25/25 03/25/25 Range/Units 16:29 06:51 10:15 WBC 17.95 H (4.50-10.00) 10*3/uL RBC 3.05 L (4.40-5.60) 10*6/uL Hgb 7.8 L (13.0-17.0) g/dL Hct 25.2 L (39.6-50.0) % MCH 25.6 L (27.0-32.0) pg MCHC 31.0 L (32.0-37.0) g/dL Immature Gran # 0.38 H (0.00-0.04) 10*3/uL Neutrophils # (1.80-7.70) 10*3/uL Neutrophils # (Manual) 16.87 H (1.3-7.7) k/uL Lymphocytes # (0.90-5.00) 10*3/uL Lymphocytes # (Manual) 0.72 L (1.0-4.8) k/uL Eosinophils # (0.04-0.35) 10*3/uL Sodium (137-145) mmol/L Glucose (74-99) mg/dL POC Glucose (mg/dL) 120 H (70-110) mg/dL Crossmatch See Detail 03/25/25 03/25/25 03/25/25 Range/Units 12:13 15:56 21:06 WBC (4.50-10.00) 10*3/uL RBC (4.40-5.60) 10*6/uL Hgb (13.0-17.0) g/dL Hct (39.6-50.0) % MCH (27.0-32.0) pg MCHC (32.0-37.0) g/dL Immature Gran # (0.00-0.04) 10*3/uL Neutrophils # (1.80-7.70) 10*3/uL Neutrophils # (Manual) (1.3-7.7) k/uL Lymphocytes # (0.90-5.00) 10*3/uL Lymphocytes # (Manual) (1.0-4.8) k/uL Eosinophils # (0.04-0.35) 10*3/uL Sodium (137-145) mmol/L Glucose (74-99) mg/dL POC Glucose (mg/dL) 127 H 148 H 119 H (70-110) mg/dL Crossmatch 03/26/25 03/26/25 03/26/25 Range/Units 04:27 04:27 06:28 WBC 10.27 H (4.50-10.00) 10*3/uL RBC 2.66 L (4.40-5.60) 10*6/uL Hgb 7.0 L (13.0-17.0) g/dL Hct 22.3 L (39.6-50.0) % MCH 26.3 L (27.0-32.0) pg MCHC 31.4 L (32.0-37.0) g/dL Immature Gran # 0.08 H (0.00-0.04) 10*3/uL Neutrophils # 9.11 H (1.80-7.70) 10*3/uL Neutrophils # (Manual) (1.3-7.7) k/uL Lymphocytes # 0.64 L (0.90-5.00) 10*3/uL Lymphocytes # (Manual) (1.0-4.8) k/uL Eosinophils # 0.00 L (0.04-0.35) 10*3/uL Sodium 135 L (137-145) mmol/L Glucose 103 H (74-99) mg/dL POC Glucose (mg/dL) 116 H (70-110) mg/dL Crossmatch Microbiology - Last 24 Hours (Table) 03/23/25 12:41 Blood Culture - Preliminary Blood Assessment and Plan (1) Ulcerative colitis Narrative/Plan: 25-year-old male recently diagnosed with ulcerative colitis by colonoscopy on 02/04/2025. Was started on IV steroids while in the hospital and then discharged home on prednisone 40 mg taper and was started on mesalamine once seen for follow-up. Patient recently admitted with sepsis thought to have viral infection. Now readmitted with anemia and hypotension. Seems symptoms for ulcerative colitis are actually improved from when he was diagnosed. Patient without any bloody bowel movements, improvement in number of bowel movements daily. Recommend continuing steroids, will decrease Solu-Medrol to 20 mg every 8 hours. Current Visit: Yes Status: Acute Code(s): K51.90 - ULCERATIVE COLITIS, UNSPECIFIED, WITHOUT COMPLICATIONS SNOMED Code(s): 35882495 (2) Anemia Current Visit: Yes Status: Acute Code(s): D64.9 - ANEMIA, UNSPECIFIED SNOMED Code(s): 822546104 (3) Hypotension Current Visit: Yes Status: Acute Code(s): I95.9 - HYPOTENSION, UNSPECIFIED SNOMED Code(s): 28102470 Plan: 1. Continue symptomatic and supportive care 2. May advance to regular diet 3. Can start prednisone 40 mg daily tomorrow, patient to be discharged on 40 mg daily. Patient instructed taper by 5 mg weekly 4. Antiemetics as needed 5. No plans on endoscopic evaluation patient had recent colonoscopy with new diagnosis of ulcerative colitis 6. Daily CBC, transfuse for hemoglobin less than 7 7. Protonix 40 mg daily for GI prophylaxis 8. Recommend oral iron twice daily 9. Patient instructed to resume mesalamine at discharge. Patient to follow-up next week with gastroenterology further discussion for Biologics at that time. Hepatitis B and C as well as TB ordered secondary to initiating Biologics. Thank you for this consultation, patient is cleared from gastroenterology. Patient instructed to follow-up next week with gastroenterology. We will sign off at this time. Dr. Samreen Antunez I agree with the dictator's note, documented as a scribe by Bhumi Mccracken.
[2025-03-26] MEDS: FERROUS SULFATE 325 MG TAB PO SCH (09:23)
--- NOTE | 2025-03-26 09:46 | P.PN ---
Subjective Progress Note Date: 03/26/25 The patient feels better. He denies any significant abdominal pain. He has had some minimal diarrhea. On exam vital signs were stable. Abdomen is soft. Resolving ulcerative colitis. There is no surgical invention planned. We will sign off. Objective - Vital Signs Vital signs: Vital Signs Temp 98.2 F 03/26/25 07:12 Pulse 53 L 03/26/25 07:12 Resp 16 03/26/25 07:12 BP 100/66 03/26/25 07:12 Pulse Ox 96 03/26/25 07:12 FiO2 Intake & Output 03/25/25 03/26/25 03/26/25 18:59 06:59 18:59 Intake Total 1870 740 Balance 1870 740 Weight 149.3 kg Intake: IV 1560 Lactated Ringers 1,000 ml 1560 @ 75 mls/hr IV .[id number] [facility] Rx#:[id number] Intake, IV Titration 200 Amount Piperacillin-Tazobactam 3 100 .375 gm In Sodium Chloride 0.9% 100 ml @ 25 mls/hr IVPB Q8HR [facility] Rx# :[id number] metroNIDAZOLE-NS PMX 500 100 mg In Saline 1 100ml.bag @ 100 mls/hr IVPB Q8HR [facility] Rx#:[id number] Oral 540 Blood Product 310 Rc As-1 Unit 310 [id number] Other: Voiding Method Urinal Toilet # Voids 1 1 # Bowel Movements 3 1 - Labs CBC & Chem 7: 03/26/25 04:27 03/26/25 04:27 Labs: Abnormal Lab Results - Last 24 Hours (Table) 03/25/25 03/25/25 03/25/25 Range/Units 10:15 12:13 15:56 WBC 17.95 H (4.50-10.00) 10*3/uL RBC 3.05 L (4.40-5.60) 10*6/uL Hgb 7.8 L (13.0-17.0) g/dL Hct 25.2 L (39.6-50.0) % MCH 25.6 L (27.0-32.0) pg MCHC 31.0 L (32.0-37.0) g/dL Immature Gran # 0.38 H (0.00-0.04) 10*3/uL Neutrophils # (1.80-7.70) 10*3/uL Neutrophils # (Manual) 16.87 H (1.3-7.7) k/uL Lymphocytes # (0.90-5.00) 10*3/uL Lymphocytes # (Manual) 0.72 L (1.0-4.8) k/uL Eosinophils # (0.04-0.35) 10*3/uL Sodium (137-145) mmol/L Glucose (74-99) mg/dL POC Glucose (mg/dL) 127 H 148 H (70-110) mg/dL 03/25/25 03/26/25 03/26/25 Range/Units 21:06 04:27 04:27 WBC 10.27 H (4.50-10.00) 10*3/uL RBC 2.66 L (4.40-5.60) 10*6/uL Hgb 7.0 L (13.0-17.0) g/dL Hct 22.3 L (39.6-50.0) % MCH 26.3 L (27.0-32.0) pg MCHC 31.4 L (32.0-37.0) g/dL Immature Gran # 0.08 H (0.00-0.04) 10*3/uL Neutrophils # 9.11 H (1.80-7.70) 10*3/uL Neutrophils # (Manual) (1.3-7.7) k/uL Lymphocytes # 0.64 L (0.90-5.00) 10*3/uL Lymphocytes # (Manual) (1.0-4.8) k/uL Eosinophils # 0.00 L (0.04-0.35) 10*3/uL Sodium 135 L (137-145) mmol/L Glucose 103 H (74-99) mg/dL POC Glucose (mg/dL) 119 H (70-110) mg/dL 03/26/25 Range/Units 06:28 WBC (4.50-10.00) 10*3/uL RBC (4.40-5.60) 10*6/uL Hgb (13.0-17.0) g/dL Hct (39.6-50.0) % MCH (27.0-32.0) pg MCHC (32.0-37.0) g/dL Immature Gran # (0.00-0.04) 10*3/uL Neutrophils # (1.80-7.70) 10*3/uL Neutrophils # (Manual) (1.3-7.7) k/uL Lymphocytes # (0.90-5.00) 10*3/uL Lymphocytes # (Manual) (1.0-4.8) k/uL Eosinophils # (0.04-0.35) 10*3/uL Sodium (137-145) mmol/L Glucose (74-99) mg/dL POC Glucose (mg/dL) 116 H (70-110) mg/dL Microbiology - Last 24 Hours (Table) 03/23/25 12:41 Blood Culture - Preliminary Blood
[2025-03-26 11:23] LABS: Glucose,Whole Blood 132 mg/dL (70-110)
[2025-03-26 11:38] LABS: Hepatitis B Surface Antigen Nonreactive (Nonreactive); Hepatitis C IgG Antibody Nonreactive (Nonreactive)
[2025-03-26] MEDS: SODIUM FERRIC GLUCONAT-SUCROSE 125 MG in SODIUM CHLORIDE 0.9% 100 ML IVPB SCH (14:21)
--- NOTE | 2025-03-26 18:32 | P.PN ---
Subjective Progress Note Date: 03/24/25 Principal diagnosis: Reason for follow-up is sepsis/colitis Patient is a 25-year-old male with a past medical history significant for ulcerative colitis presented to the hospital with fever nausea vomiting has been diagnosed with colitis with sepsis prompting this consultation On today's evaluation that is 03/24/2025 patient did have resolution of his fever and the patient is afebrile this point the patient is breathing comfortably P denies having any chest pain shortness of breath or cough abdominal pain has decreased no further nausea vomiting and denies any worsening diarrhea. Patient white count is down to 10.16, creatinine 0.65 blood and stool cultures currently pending stool for C. difficile was negative Objective - Vital Signs Vital signs: Vital Signs Temp 97.9 F 03/25/25 08:26 Pulse 61 03/25/25 09:00 Resp 14 03/25/25 09:00 BP 106/66 03/25/25 09:00 Pulse Ox 95 03/25/25 09:00 FiO2 Intake & Output 03/24/25 03/25/25 03/25/25 18:59 06:59 18:59 Intake Total 8210.074 8714 700 Output Total 401 600 Balance 7444.285 2937 700 Weight 148.8 kg Intake: IV 1660 1950 390 0.9 KVO 90 Lactated Ringers 1,000 ml 1560 1560 390 @ 130 mls/hr IV .Q7H42M [facility] Rx#:[id number] Piperacillin-Tazobactam 3 100 200 .375 gm In Sodium Chloride 0.9% 100 ml @ 25 mls/hr IVPB Q8HR [facility] Rx# :[id number] metroNIDAZOLE-NS PMX 500 100 mg In Saline 1 100ml.bag @ 100 mls/hr IVPB Q8HR [facility] Rx#:[id number] Intake, IV Titration 102.704 Amount Norepinephrine 8 mg In 2.704 Sodium Chloride 0.9% 250 ml @ 0.03 MCG/KG/MIN 8. 689 mls/hr IV .Q24H [facility] Rx#:[id number] metroNIDAZOLE-NS PMX 500 100 mg In Saline 1 100ml.bag @ 100 mls/hr IVPB Q8HR [facility] Rx#:[id number] Blood Product 0 310 Rc As-1 Unit 0 310 [id number] Output: Urine 400 600 Stool 1 Other: Voiding Method Urinal Urinal Urinal # Voids 1 1 # Bowel Movements 1 1 1 - Exam GENERAL DESCRIPTION: A Young male lying in bed in no distress RESPIRATORY SYSTEM: Unlabored breathing , decreased breath sounds at bases HEART: S1 S2 regular rate and rhythm , ABDOMEN: Soft , no tenderness EXTREMITIES: No edema feet - Labs CBC & Chem 7: 03/26/25 04:27 03/26/25 04:27 Labs: Abnormal Lab Results - Last 24 Hours (Table) 03/23/25 03/24/25 03/24/25 Range/Units 16:29 05:26 17:16 WBC (4.50-10.00) 10*3/uL RBC (4.40-5.60) 10*6/uL Hgb (13.0-17.0) g/dL Hct (39.6-50.0) % MCH (27.0-32.0) pg MCHC (32.0-37.0) g/dL Immature Gran # (0.00-0.04) 10*3/uL Neutrophils # (1.80-7.70) 10*3/uL Neutrophils # (Manual) (1.3-7.7) k/uL Lymphocytes # (Manual) (1.0-4.8) k/uL Eosinophils # (0.04-0.35) 10*3/uL Sodium (137-145) mmol/L Carbon Dioxide (22-30) mmol/L Glucose (74-99) mg/dL POC Glucose (mg/dL) 123 H (70-110) mg/dL Iron 7 L (65-175) UG/DL % Saturation 2.20 L (15.00-50.00) Crossmatch See Detail 03/24/25 03/25/25 03/25/25 Range/Units 20:03 03:21 03:21 WBC 13.59 H (4.50-10.00) 10*3/uL RBC 2.67 L (4.40-5.60) 10*6/uL Hgb 6.9 L* (13.0-17.0) g/dL Hct 21.5 L (39.6-50.0) % MCH 25.8 L (27.0-32.0) pg MCHC (32.0-37.0) g/dL Immature Gran # 0.15 H (0.00-0.04) 10*3/uL Neutrophils # 11.56 H (1.80-7.70) 10*3/uL Neutrophils # (Manual) (1.3-7.7) k/uL Lymphocytes # (Manual) (1.0-4.8) k/uL Eosinophils # 0.00 L (0.04-0.35) 10*3/uL Sodium 135 L (137-145) mmol/L Carbon Dioxide 21 L (22-30) mmol/L Glucose 125 H (74-99) mg/dL POC Glucose (mg/dL) 143 H (70-110) mg/dL Iron (65-175) UG/DL % Saturation (15.00-50.00) Crossmatch 03/25/25 03/25/25 03/25/25 Range/Units 06:51 10:15 12:13 WBC 17.95 H (4.50-10.00) 10*3/uL RBC 3.05 L (4.40-5.60) 10*6/uL Hgb 7.8 L (13.0-17.0) g/dL Hct 25.2 L (39.6-50.0) % MCH 25.6 L (27.0-32.0) pg MCHC 31.0 L (32.0-37.0) g/dL Immature Gran # 0.38 H (0.00-0.04) 10*3/uL Neutrophils # (1.80-7.70) 10*3/uL Neutrophils # (Manual) 16.87 H (1.3-7.7) k/uL Lymphocytes # (Manual) 0.72 L (1.0-4.8) k/uL Eosinophils # (0.04-0.35) 10*3/uL Sodium (137-145) mmol/L Carbon Dioxide (22-30) mmol/L Glucose (74-99) mg/dL POC Glucose (mg/dL) 120 H 127 H (70-110) mg/dL Iron (65-175) UG/DL % Saturation (15.00-50.00) Crossmatch Microbiology - Last 24 Hours (Table) 03/23/25 12:41 Blood Culture - Preliminary Blood Assessment and Plan (1) Colitis Status: Acute Code(s): K52.9 - NONINFECTIVE GASTROENTERITIS AND COLITIS, UNSPECIFIED SNOMED Code(s): 09280670 (2) Sepsis Status: Acute Code(s): A41.9 - SEPSIS, UNSPECIFIED ORGANISM SNOMED Code(s): 09263651 Plan: 1patient presented hospital with sepsis in this patient who did have a fever tachycardia hypotension elevated white count, elevated lactic acid meeting criteria for SIRS //sepsis source likely abdominal in this patient who did have a history of UC and recently to hospital with colitis will require further enteric gram-negative both aerobes and anaerobes 2- CT of abdominal pelvis with oral contrast shows evidence of colitis no abscess 3- stool for C. difficile negative and stool culture currently pending 4-patient did have resolution of his fever white count is trending down to continue with Zosyn 3.375 g every 8 hours and monitor clinical course closely Dictation was produced using [employer] dictation software. please excuse any grammatical, word or spelling errors. Time with Patient: Less than 30
--- NOTE | 2025-03-26 18:34 | P.PN ---
Subjective Progress Note Date: 03/25/25 Principal diagnosis: Reason for follow-up is sepsis/colitis Patient is a 25-year-old male with a past medical history significant for ulcerative colitis presented to the hospital with fever nausea vomiting has been diagnosed with colitis with sepsis prompting this consultation On today's evaluation that is 03/25/2025,the patient remains to be afebrile, patient is on room air not requiring supplemental oxygen and mentioned breathing comfortably with no chest pain or cough.Patient denies having any nausea or vomiting, no abdominal pain and denies having any worsening diarrhea Patient white count is slightly up to 17.95 today, creatinine 0.76 blood and stool culture currently pending Objective - Vital Signs Vital signs: Vital Signs Temp 97.9 F 03/25/25 08:26 Pulse 61 03/25/25 09:00 Resp 14 03/25/25 09:00 BP 106/66 03/25/25 09:00 Pulse Ox 95 03/25/25 09:00 FiO2 Intake & Output 03/24/25 03/25/25 03/25/25 18:59 06:59 18:59 Intake Total 6587.003 5633 700 Output Total 401 600 Balance 0601.398 2166 700 Weight 148.8 kg Intake: IV 1660 1950 390 0.9 KVO 90 Lactated Ringers 1,000 ml 1560 1560 390 @ 130 mls/hr IV .Q7H42M [facility] Rx#:[id number] Piperacillin-Tazobactam 3 100 200 .375 gm In Sodium Chloride 0.9% 100 ml @ 25 mls/hr IVPB Q8HR [facility] Rx# :[id number] metroNIDAZOLE-NS PMX 500 100 mg In Saline 1 100ml.bag @ 100 mls/hr IVPB Q8HR [facility] Rx#:[id number] Intake, IV Titration 102.704 Amount Norepinephrine 8 mg In 2.704 Sodium Chloride 0.9% 250 ml @ 0.03 MCG/KG/MIN 8. 689 mls/hr IV .Q24H [facility] Rx#:[id number] metroNIDAZOLE-NS PMX 500 100 mg In Saline 1 100ml.bag @ 100 mls/hr IVPB Q8HR [facility] Rx#:[id number] Blood Product 0 310 Rc As-1 Unit 0 310 [id number] Output: Urine 400 600 Stool 1 Other: Voiding Method Urinal Urinal Urinal # Voids 1 1 # Bowel Movements 1 1 1 - Exam GENERAL DESCRIPTION: A Young male lying in bed in no distress RESPIRATORY SYSTEM: Unlabored breathing , decreased breath sounds at bases HEART: S1 S2 regular rate and rhythm , ABDOMEN: Soft , no tenderness EXTREMITIES: No edema feet - Labs CBC & Chem 7: 03/26/25 04:27 03/26/25 04:27 Labs: Abnormal Lab Results - Last 24 Hours (Table) 03/23/25 03/24/25 03/24/25 Range/Units 16:29 05:26 17:16 WBC (4.50-10.00) 10*3/uL RBC (4.40-5.60) 10*6/uL Hgb (13.0-17.0) g/dL Hct (39.6-50.0) % MCH (27.0-32.0) pg MCHC (32.0-37.0) g/dL Immature Gran # (0.00-0.04) 10*3/uL Neutrophils # (1.80-7.70) 10*3/uL Neutrophils # (Manual) (1.3-7.7) k/uL Lymphocytes # (Manual) (1.0-4.8) k/uL Eosinophils # (0.04-0.35) 10*3/uL Sodium (137-145) mmol/L Carbon Dioxide (22-30) mmol/L Glucose (74-99) mg/dL POC Glucose (mg/dL) 123 H (70-110) mg/dL Iron 7 L (65-175) UG/DL % Saturation 2.20 L (15.00-50.00) Crossmatch See Detail 03/24/25 03/25/25 03/25/25 Range/Units 20:03 03:21 03:21 WBC 13.59 H (4.50-10.00) 10*3/uL RBC 2.67 L (4.40-5.60) 10*6/uL Hgb 6.9 L* (13.0-17.0) g/dL Hct 21.5 L (39.6-50.0) % MCH 25.8 L (27.0-32.0) pg MCHC (32.0-37.0) g/dL Immature Gran # 0.15 H (0.00-0.04) 10*3/uL Neutrophils # 11.56 H (1.80-7.70) 10*3/uL Neutrophils # (Manual) (1.3-7.7) k/uL Lymphocytes # (Manual) (1.0-4.8) k/uL Eosinophils # 0.00 L (0.04-0.35) 10*3/uL Sodium 135 L (137-145) mmol/L Carbon Dioxide 21 L (22-30) mmol/L Glucose 125 H (74-99) mg/dL POC Glucose (mg/dL) 143 H (70-110) mg/dL Iron (65-175) UG/DL % Saturation (15.00-50.00) Crossmatch 03/25/25 03/25/25 03/25/25 Range/Units 06:51 10:15 12:13 WBC 17.95 H (4.50-10.00) 10*3/uL RBC 3.05 L (4.40-5.60) 10*6/uL Hgb 7.8 L (13.0-17.0) g/dL Hct 25.2 L (39.6-50.0) % MCH 25.6 L (27.0-32.0) pg MCHC 31.0 L (32.0-37.0) g/dL Immature Gran # 0.38 H (0.00-0.04) 10*3/uL Neutrophils # (1.80-7.70) 10*3/uL Neutrophils # (Manual) 16.87 H (1.3-7.7) k/uL Lymphocytes # (Manual) 0.72 L (1.0-4.8) k/uL Eosinophils # (0.04-0.35) 10*3/uL Sodium (137-145) mmol/L Carbon Dioxide (22-30) mmol/L Glucose (74-99) mg/dL POC Glucose (mg/dL) 120 H 127 H (70-110) mg/dL Iron (65-175) UG/DL % Saturation (15.00-50.00) Crossmatch Microbiology - Last 24 Hours (Table) 03/23/25 12:41 Blood Culture - Preliminary Blood Assessment and Plan (1) Colitis Status: Acute Code(s): K52.9 - NONINFECTIVE GASTROENTERITIS AND COLITIS, UNSPECIFIED SNOMED Code(s): 39670726 (2) Sepsis Status: Acute Code(s): A41.9 - SEPSIS, UNSPECIFIED ORGANISM SNOMED Code(s): 99138596 Plan: 1patient presented hospital with sepsis in this patient who did have a fever tachycardia hypotension elevated white count, elevated lactic acid meeting criteria for SIRS //sepsis source likely abdominal in this patient who did have a history of UC and recently to hospital with colitis will require further enteric gram-negative both aerobes and anaerobes 2- CT of abdominal pelvis with oral contrast shows evidence of colitis no abscess 3- stool for C. difficile negative and stool culture currently pending 4-patient did have resolution of his fever white count is slightly up today that we will monitor closely questionable steroid related for now continue with Zosyn 3.375 g every 8 hours and monitor clinical course closely Dictation was produced using [employer] dictation software. please excuse any grammatical, word or spelling errors. Time with Patient: Less than 30
--- NOTE | 2025-03-26 18:35 | P.PN ---
Subjective Progress Note Date: 03/26/25 Principal diagnosis: Reason for follow-up is sepsis/colitis Patient is a 25-year-old male with a past medical history significant for ulcerative colitis presented to the hospital with fever nausea vomiting has been diagnosed with colitis with sepsis prompting this consultation On today's evaluation that is 03/26/2025, the patient continues to be afebrile, the patient is on room air and breathing comfortably, the Pt denies having any chest pain or cough, the patient denies having any abdominal pain no vomiting or any diarrhea, mention feeling better patient seem to have been discharged by the admitting team as reported by the nursing staff. Patient white count is down to 10.27 creatinine 0.82 Objective - Vital Signs Vital signs: Vital Signs Temp 98.2 F 03/26/25 07:12 Pulse 53 L 03/26/25 08:25 Resp 16 03/26/25 07:12 BP 100/66 03/26/25 07:12 Pulse Ox 96 03/26/25 07:12 FiO2 Intake & Output 03/25/25 03/26/25 03/26/25 18:59 06:59 18:59 Intake Total 1870 740 Balance 1870 740 Weight 149.3 kg Intake: IV 1560 Lactated Ringers 1,000 ml 1560 @ 75 mls/hr IV .[id number] [facility] Rx#:[id number] Intake, IV Titration 200 Amount Piperacillin-Tazobactam 3 100 .375 gm In Sodium Chloride 0.9% 100 ml @ 25 mls/hr IVPB Q8HR [facility] Rx# :[id number] metroNIDAZOLE-NS PMX 500 100 mg In Saline 1 100ml.bag @ 100 mls/hr IVPB Q8HR [facility] Rx#:[id number] Oral 540 Blood Product 310 Rc As-1 Unit 310 [id number] Other: Voiding Method Urinal Toilet Toilet # Voids 1 1 # Bowel Movements 3 1 - Exam GENERAL DESCRIPTION: A Young male lying in bed in no distress RESPIRATORY SYSTEM: Unlabored breathing , decreased breath sounds at bases HEART: S1 S2 regular rate and rhythm , ABDOMEN: Soft , no tenderness EXTREMITIES: No edema feet - Labs CBC & Chem 7: 03/26/25 04:27 03/26/25 04:27 Labs: Abnormal Lab Results - Last 24 Hours (Table) 03/25/25 03/25/25 03/26/25 Range/Units 15:56 21:06 04:27 WBC 10.27 H (4.50-10.00) 10*3/uL RBC 2.66 L (4.40-5.60) 10*6/uL Hgb 7.0 L (13.0-17.0) g/dL Hct 22.3 L (39.6-50.0) % MCH 26.3 L (27.0-32.0) pg MCHC 31.4 L (32.0-37.0) g/dL Immature Gran # 0.08 H (0.00-0.04) 10*3/uL Neutrophils # 9.11 H (1.80-7.70) 10*3/uL Lymphocytes # 0.64 L (0.90-5.00) 10*3/uL Eosinophils # 0.00 L (0.04-0.35) 10*3/uL Sodium (137-145) mmol/L Glucose (74-99) mg/dL POC Glucose (mg/dL) 148 H 119 H (70-110) mg/dL 03/26/25 03/26/25 03/26/25 Range/Units 04:27 06:28 11:21 WBC (4.50-10.00) 10*3/uL RBC (4.40-5.60) 10*6/uL Hgb (13.0-17.0) g/dL Hct (39.6-50.0) % MCH (27.0-32.0) pg MCHC (32.0-37.0) g/dL Immature Gran # (0.00-0.04) 10*3/uL Neutrophils # (1.80-7.70) 10*3/uL Lymphocytes # (0.90-5.00) 10*3/uL Eosinophils # (0.04-0.35) 10*3/uL Sodium 135 L (137-145) mmol/L Glucose 103 H (74-99) mg/dL POC Glucose (mg/dL) 116 H 132 H (70-110) mg/dL Microbiology - Last 24 Hours (Table) 03/24/25 09:55 Stool Culture - Preliminary Stool 03/23/25 12:41 Blood Culture - Preliminary Blood Assessment and Plan (1) Colitis Status: Acute Code(s): K52.9 - NONINFECTIVE GASTROENTERITIS AND COLITIS, UNSPECIFIED SNOMED Code(s): 90614549 (2) Sepsis Status: Acute Code(s): A41.9 - SEPSIS, UNSPECIFIED ORGANISM SNOMED Code(s): 74571841 Plan: 1patient presented hospital with sepsis in this patient who did have a fever tachycardia hypotension elevated white count, elevated lactic acid meeting criteria for SIRS //sepsis source likely abdominal in this patient who did have a history of UC and recently to hospital with colitis will require further enteric gram-negative both aerobes and anaerobes 2- CT of abdominal pelvis with oral contrast shows evidence of colitis no abscess 3- stool for C. difficile negative and stool culture currently pending 4-patient did have resolution of his fever, culture have been negative the patient white count is almost normalized and the patient has been discharged this morning by admitting team and has been cleared for discharge both by surgery and GI will consider a 10-day course of oral Ceftin and Flagyl on discharge prescription written for the patient Dictation was produced using [employer] dictation software. please excuse any grammatical, word or spelling errors. Time with Patient: Less than 30
== END 2025-03-26 15:56 | disposition home or self-care (01) | DRG 871 ==
LOC: EC 11:54 → 2SICU 14:33 → 3SCARD 03-25 21:53 → 2SICU 03-25 22:11 → 4SSUR 03-26 03:05
PROVIDERS: ADMIT Hospitalist; ATTEND Hospitalist
PROC: 30233N1 Transfusion of Nonautologous Red Blood Cells into Peripheral Vein, Percutaneous Approach (ICD-10-PCS; principal; 2025-03-23)
PROC: 3E033XZ Introduction of Vasopressor into Peripheral Vein, Percutaneous Approach (ICD-10-PCS; 2025-03-23)
DX: A41.9 Sepsis, unspecified organism (principal); R57.8 Other shock; R65.21 Severe sepsis with septic shock; E87.20 Acidosis, unspecified; D62 Acute posthemorrhagic anemia; F31.30 Bipolar disorder, current episode depressed, mild or moderate severity, unspecified; E66.01 Morbid (severe) obesity due to excess calories; K51.90 Ulcerative colitis, unspecified, without complications; Z68.42 Body mass index [BMI] 45.0-49.9, adult; E87.1 Hypo-osmolality and hyponatremia; B34.9 Viral infection, unspecified; F41.9 Anxiety disorder, unspecified; Z79.899 Other long term (current) drug therapy
CPT/HCPCS: 36415; 36430; 71045; 74176; 80048; 80053; 82533; 82607; 82728; 82746; 83036; 83540; 83550; 83605; 85025; 85610; 85730; 86480; 86704; 86803; 86850; 86900; 86901; 86920; 87040; 87045; 87046; 87340; 87493; 93005; 96361; 96365; 96366; 96367; 96368; 96375; 99291